=== PATIENT | male | born 1940 | race Caucasian/White ===

== ENCOUNTER 2016-08-25 06:00 | Inpatient (IN) | payer MEDICARE, OTHER ==
[~2016-08-25] VITALS: Ht 175.3 cm; Wt 100.3 kg
[2016-08-25] VITALS (19 sets, daily range): BP systolic 101–126; BP diastolic 66–89; PULSE 96–128; RESP 19–27; O2SAT 90–100
--- NOTE | 2016-08-25 06:14 | ED.REPORT ---
HPI-Dyspnea / Wheezing Date of Service Aug 25, 2016 ED Provider: Anthony Sainz MD 76 year old male with a remote history of smoking, and history of CAD, HTN, DM, and sleep apnea on BIPAP at night presents to the ER via EMS accompanied by his due to several weeks of shortness of breath and global weakness. For the past several weeks patient has been increasingly short of breath. In the early hours of the morning today symptoms awakened him from sleeping. He went downstairs to sleep in his recliner in an attempt to improve his breathing. When he got up to return to his bedroom upstairs he fell to his knees and had to crawl upstairs, which prompted the to call EMS. Associated symptoms include constipation secondary to narcotic use, and melena recently. denies fever, cough, chest pain, and history of asthma, and COPD. reports that the patient has was seen at [facility] 08/20/2016 for similar, at which time he had x-rays done. Patient denies any anticoagulant use, and home O2 use. Recent history of right total knee arthroscopy 07/29/2016. He takes 325mg ASA daily, but has not taken any today. Nursing Notes Stated Complaint: DIFFICULTY BREATHING Chief Complaint: Respiratory Distress Nursing Notes Reviewed: Yes (Helmedix not reconciled) Allergies: Coded Allergies: Sulfa (Sulfonamide Antibiotics) (Verified Allergy, Unknown, Rash, 08/25/16) atorvastatin (Verified Allergy, Unknown, 08/25/16) lactose (Verified Allergy, Unknown, Nasal congestion, 08/25/16) tramadol (Verified Adverse Reaction, Intermediate, "DINGY"., 08/25/16) General Time Seen by MD: 06:10 Chief Complaint Shortness of breath Hx Obtained From: Patient, Spouse Arrived By: Ambulance Sudden in Onset?: No Onset Occurred: More than a week ago... ("several weeks") Symptom Duration: Since onset Associated with: Denies: Cough, Fever Context Related History: Reports: Coronary artery disease, Denies: COPD Recent Healthcare: Recent doctor visit Similar Sx Previous: Yes Risk Factors CAD Risk Stratification Diabetes mellitus Hypertension Known CAD Risk factors reviewed Well's Criteria for PE Clin suspicion of DVT (3), HR > 100 (1.5), Immob/surg past 4wk (1.5) Well's PE Score: 3-6 pts (mod risk 20.5%) Past Medical History Past Medical History Notes: Medication list reviewed with family: Aspirin 81 mg daily Carvedilol 4.5 mg 2 times a day Vitamin D3 Colchicine when necessary Vitamin B12 Flexeril when necessary Iron 325 mg daily Prinivil 20 mg-discontinued this week secondary to low blood pressures Nitroglycerin when necessary Oxycodone Crestor 20 mg daily Colace Past Medical History Coronary disease Peripheral artery disease with carotid disease Diabetes Hyperlipidemia Hypertension History of OR History of diabetic neuropathy Obese History of obstructive sleep apnea on CPAP on history of osteoporosis Past Surgical History Right knee arthroplasty July 2016 Cervical spine surgery Carotid stent 3 History of carpal tunnel release History of coronary angioplasty-PCI FO MB CABG with a HUDSON to LAD P TURP for prostate surgery Smoking History Former Smoker Social History Alcohol Use: Denies alcohol use Drug Use: Denies drug use Review of Systems Constitutional: Reports: Weakness - generalized, Denies: Chills, Fever Respiratory: Reports: Shortness of breath, Denies: Non-productive cough Cardiovascular: Denies: Chest pain Complete sys rev & neg: except as marked. GI: Reports: Constipation, Melena Physical Exam Physical Exam Notes: Initial Vital Signs Vital Signs (First) Date Time Temp Pulse Resp B/P Pulse Ox O2 Delivery O2 Flow Rate FiO2 08/25/16 06:10 36.6 103 21 101/66 97 Room Air 08/25/16 08:01 6 Initial VS: Reviewed, Vital signs abnormal Head / Eyes: Atraumatic, Normocephalic Abdomen / GI: Soft, Non-tender, No guarding, No rebound, No distention Extremities: Vascular intact, Neuro intact, No swelling, No tenderness Neurologic: Alert, Oriented, Nonfocal General/Constitutional: Awake, Alert, Well developed Appearance / Presentation: Positive: Ill appearing/not toxic, Pale Weak appearing. Fatigued. Neck: Atraumatic, Supple, Full range of motion Respiratory / Chest: No rales, No rhonchi Moderately short of breath. Scattered wheezing in all macias Cardiovascular: Heart rate NL, Regular rhythm, Heart sounds NL, Peripheral circulation NL Hypertension resolved 1+ edema bilaterally. ENT: Airway patent Mouth: Positive: Mucous membranes dry Lower Extremity / Pelvis / MS: Full range of motion, No deformity, Neurologic intact, Vascular intact Right leg in compression stocking New incision to the Right knee, clean, dry, intact. No gross assymmetry of the lower extremities. Neurologic: Oriented X3, Speech NL, No sensory deficits Globally weak requiring assistance to sit up. Head / Eyes: Atraumatic, Normocephalic Conjunctival pallor. Interpretation & Diagnostics Lab Results Interpretation Result Diagram: 08/25/16 0745 08/25/16 0600 Test 08/25/16 06:00 08/25/16 06:17 08/25/16 07:45 White Blood Count 11.8th/mm3 (3.8-10.1) Red Blood Count 3.44mil/mm3 (4.40-5.80) Mean Corpuscular Volume 91.0fL (81-100) Mean Corpuscular Hemoglobin 29.1pg (27.0-35.0) Mean Corpuscular Hemoglobin Concent 31.9% (32.0-37.0) Red Cell Distribution Width 13.5% (12.3-15.4) Platelet Count 453bil/L (150-400) Neutrophils (%) (Auto) 74.1% (40-74) Lymphocytes (%) (Auto) 17.8% (14-46) Monocytes (%) (Auto) 7.1% (4-12) Eosinophils (%) (Auto) 0.3% (0-5) Basophils (%) (Auto) 0.3% (0-3) Prothrombin Time 13.9sec (8.1-12.5) Prothromb Time International Ratio 1.29ratio Sodium Level 128mEq/L (134-144) Potassium Level 6.1mEq/L (3.5-5.2) Chloride Level 91mEq/L (97-108) Carbon Dioxide Level 16mmol/L (18-29) Blood Urea Nitrogen 35mg/dL (8-27) Creatinine 1.62mg/dL (0.76-1.27) Estimat Glomerular Filtration Rate 44mL/min (>59) Glucose Level 256mg/dL (60-99) Calcium Level 9.4mg/dL (8.5-10.1) Magnesium Level 2.4mg/dL (1.6-2.6) Total Bilirubin 0.3mg/dL (0.0-1.2) Aspartate Amino Transf (AST/SGOT) 26U/L (0-50) Alanine Aminotransferase (ALT/SGPT) 20U/L (0-44) Alkaline Phosphatase 60U/L (25-160) Troponin T 0.925ug/L (0.0-0.011) Pro-B-Type Natriuretic Peptide 5206pg/mL (0-486) Total Protein 7.6g/dL (6.4-8.4) Albumin 3.5g/dL (3.4-5.0) Lactic Acid Level 2.7mmol/L (0.4-2.0) Hold Barnard Top Tube Received (Received) Hemoglobin 9.3g/dL (13.8-17.2) Hematocrit 28.9% (41.0-50.0) Activated Partial Thromboplast Time 27.1sec (22.8-33.0) Lab Results Interpretation: CBC mild leukocytosis, moderate anemia-but improved from her crit of 24 previously (07/29) in recent weeks CMP notable for slight hyperkalemia, moderate metabolic acidosis, renal insufficiency with a creatinine of 1.1 on July 29, mild hyperglycemia Lactic acid moderately elevated Troponin elevated ECG Interpretation ECG Interpretation: Sinus Tachycardia. New nonspecific IVCD. ST segment depression V1-V4. New T wave inversion laterally. Concerning for ischemia. Posterior STEMI. However, although ECG changes present, clinically concerning for pulmonary embolus. Time: 06:46 Interpreted by: ED physician ECG Interpretation: Repeat EKG unchanged Time: 06:05 Interpreted by: ED physician Repeat ECG: Repeat ECG unchanged ECG Interpretation: Repeat EKG with posterior leads V5 through 7 CT Chest Interpretation CONCLUSION: No evidence of pulmonary embolism. Bilateral pleural effusions and infiltrates are nonspecific, possible pneumonia and/or edema. Mild mediastinal adenopathy is nonspecific, neoplasm is not excluded. Electronically signed by Michelle Fallon MD 08/25/2016 at 08:12 PDT Study type: CT pulm angiogram Interpretation / Wet Read by: Interpret - Radiologist Re-Eval/Medical Decision Med Decision/Clinical Course This is a 76-year-old male who is status post a right knee replacement last month presents with increasing shortness of breath, weakness, and hypertension and hypoxia. The patient is weak and ill-to the initial history is obtained through the and EMS. reports the patient's been feeling worse over the past several weeks, some increasing shortness of breath and fatigue. Last night he was having short of breath, and discontinued his CPAP, and sat upright in a chair. He denies any chest pain, reports symptoms are different than previous coronary disease, but has had increasing dyspnea. This morning he barely tried to get up and took several steps either collapsed or had syncope. He was then too weak to get up and EMS was called. Medics found the patient hypoxic with room air sat of approximately 80%, and hypotensive with a systolic blood pressure of 80. With a gentle fluid bolus, and O2-the patient's blood pressure is now 105 systolic, and a sats 99% on oxygen therapy on arrival to the department. The patient appears quite pale, with a possible concern of anemia as a cause based on his conjunctival pallor in appearance-I reviewed denies any symptoms of bleeding, he does note he is on an iron supplement. A stat hematocrit was obtained but is about 30, and is improved compared to previous lab lab values ( records were obtained from [facility] [place], where the patient was seen last week). A chest x-ray suggest possible mild CHF, but does not explain the profound shortness of breath. The patient has had a recent knee arthroplasty, he now presents hypotensive, hypoxic-PE is high on the list potential diagnoses. The patient does have an EKG concerning for possible ischemia, but is also notable for QRS widening, ST depression anteriorly-and these are new findings compared to an old EKG from 2015-but the patient initially had a ruled out for anemia, metabolic disease, PE hold off on emergent anticoagulation until early sort out the anemia's status as discussed indicated above. Once it was determined the patient was not anemic, heparin drip at DVT PE doses were intiated. I also reviewed the patient's EKGs with the on-call audit manager. Posterior EKG with V4 5 and 6 replaced with V7, V8, and V9 was obtained for EKG #3 (note this does not reveal in the formal EKG labels. Labs then returned notable for potassium elevated at 6.1, dictating potential metabolic cause-with EKGs findings including QRS widening, and potential findings of hyperkalemia treatment was initiated: The patient received albuterol ('s was started initially as well, based on bronchospasm on initial exam), insulin, dextrose, bicarbonate, following initial administration of calcium. Patient's medications were reviewed. He also received aspirin to complete a full dose-he had taken 81 mg prior to coming in. This point the plan is admission to the hospital for continued management, treatment of hyperkalemia, close monitoring, and cardiology consultation likely be indicated. The first step will be addressing of the metabolic abnormalities , then reassessing the cardiac status. Source of Hx: Old records, EMS Re-Evaluation/Progress : Time of Eval: 07:42 Re-Evaluation/Progress Note: Patient is now accompanied by multiple family members who are at bedside. Discussed lab results and imaging wet reads and need for admission. Patient and family understand and agree to the plan. All other questions addressed. Consultation #1: Referral / Consult Name: Antoni Johnson MD Consulted With: Cardiology Call Returned at: 06:48 Consultation #2: Consulted With: Hospitalist Door Slinger: Agrees with eval, Agrees with plan, Accepts admit Counseled Regarding: Diagnosis, Lab results, Need for admission Discharge & Departure Impression: Primary Impression: Hyperkalemia Additional Impressions: Shortness of breath Acute renal insufficiency Metabolic acidosis Abnormal EKG Elevated troponin Congestive heart failure Congestive heart failure type: systolic Congestive heart failure chronicity: acute Qualified Code: I50.21 - Acute systolic (congestive) heart failure Disposition: ADMITTED TO HOSPITAL (ERASED) Discharge Condition All VS Reviewed: Yes Condition: Stable Referrals: OTHER,PHYSICIAN (PCP) Scribe Attestation Portions of this note were transcribed by Luis Enrique Milian. I, Dr. Sainz, personally performed the history, physical exam and medical decision-making; I reviewed and confirmed the accuracy of the information in the transcribed note. Signed by: Jack Devlin, 08/25/2016 and *time*. Anthony Sainz MD Aug 25, 2016 06:14 LUIS ENRIQUE MILIAN Aug 25, 2016 06:22 Cristi Ayala Aug 25, 2016 06:50
[2016-08-25 06:19] LABS: BASOPHILS % (AUTO) 0.3 % (0-3); EOSINOPHILS % (AUTO) 0.3 % (0-5); MONOCYTES % (AUTO) 7.1 % (4-12); Mean Corpuscular Hemoglobin 29.1 pg (27.0-35.0); NEUTROPHILS % (AUTO) 74.1 % (40-74); Platelet Count 453 bil/L (150-400)
[2016-08-25] MEDS ORDERED: Albuterol 2.5 mg/3 mL Inhalation Solution NEB ONE ×2 (06:21→06:25)
[2016-08-25] MEDS ORDERED: Ipratropium 0.02% 0.5 mg/2.5 mL Inhalation Solution NEB ONE (06:25)
[2016-08-25] MEDS ORDERED: Heparin 5,000 Unit/mL Inj IVPUSH ONE (06:50)
[2016-08-25] MEDS ORDERED: Heparin 25K Unit/500mL 0.45 NS 25,000 UNIT in IV Premix 1 EACH IV ONE ×2 (06:50→08:40)
[2016-08-25 06:54] LABS: INR 1.29 ratio
[2016-08-25 07:07] LABS: Magnesium 2.4 mg/dL (1.6-2.6)
[2016-08-25 07:15] LABS: TROPONIN T 0.925 ug/L (0.0-0.011)
[2016-08-25] MEDS ORDERED: Sodium Bicarb (50 mEq) 8.4% 1 mEq/mL 50 mL Syringe IVPUSH ONE (07:20)
[2016-08-25] MEDS ORDERED: Insulin Human REGular-Omnicell 100 Unit/mL IV ONE ×2 (07:20→20:25)
[2016-08-25] MEDS ORDERED: Albuterol 0.5% (5mg/mL) 20 mL Inhalation Solution NEB ONE (07:20)
[2016-08-25] MEDS: Calcium GLUCOnate 10% (Gm) 1 Gm/10 mL Inj IVPUSH PRN ×2 (07:40→08:55)
--- NOTE | 2016-08-25 08:14 | DRSVH ---
PROCEDURE: CT ANGIO CHEST PULMONARY EMBOLISM ([id number]) INDICATIONS: SOB, hypoxia TECHNIQUE: After the administration of intravenous contrast, 2 mm thick sections acquired from the pulmonary api krysta to the posterior costophrenic angles. 3-dimensional maximum intensity projection (MIP) coronal a nd sagittal reformats were then acquired through the thorax. For radiation dose reduction, the follo wing was used: automated exposure control, adjustment of mA and/or kV according to patient size. COMPARISON: Merged With [facility], CR, XR CHEST 1VW (PORTABLE), 08/25/2016, 6:01. FINDINGS: Image quality: Excellent. Pulmonary arteries: Pulmonary arteries are normal in size, and demonstrate no intraluminal filling d efects to suggest central pulmonary embolism. Lungs and pleura: No pneumothorax. Bilateral small pleural effusions, which appear to be partially lo culated. There is probable fluid seen within the left fissure, image 22 series 6 although rounded senait earance (i.e. pseudotumor). Scattered diffuse atelectasis and ill-defined groundglass opacities. Mediastinum: The heart is enlarged. No pericardial effusion identified. The aorta is grossly unremar kable. Mildly enlarged scattered mediastinal subcarinal and peritracheal lymph nodes. Esophagus is de compressed. No hiatal hernia. Bones and chest wall: No suspicious bony lesions. Ribs and thoracic spine appear intact throughout. Thyroid gland negative. No axillary or supraclavicular adenopathy. Abdomen: Visualized upper abdominal solid organs appear normal in the early arterial phase of enhanc ement. Of note, reflux of contrast is seen into the hepatic veins, and IVC IMPRESSION: No evidence of pulmonary embolism. Small bilateral pleural effusions with adjacent atelectasis. Rounded focus of low attenuation seen wi thin the left fissure likely loculated fluid (i.e. pseudotumor). Recommend continued followup with PA and lateral chest radiographs to document resolution after treatment. Scattered groundglass opacities and mild interlobular septal thickening suggesting pulmonary edema. P lease correlate clinically Cardiomegaly and reflux of contrast into the IVC and hepatic veins, which suggests decreased cardiac output. Dictated by: Darin Fonseca M.D. on 08/25/2016 at 8:06 Approved by: Darin Fonseca M.D. on 08/25/2016 at 8:13
[2016-08-25] MEDS ORDERED: 0.9% Sodium Chloride 500 ML IV ONE (08:35)
[2016-08-25] MEDS ORDERED: LISI-567 PO (08:53)
[2016-08-25] MEDS ORDERED: CARV12.52 PO (08:53)
[2016-08-25] MEDS ORDERED: DIAZ5TAB3 PO (08:53)
[2016-08-25] MEDS ORDERED: UBID1CAP58 PO (08:53)
[2016-08-25] MEDS ORDERED: ASPI-973 PO (08:53)
[2016-08-25] MEDS ORDERED: OXYC5CAP4 PO (08:53)
[2016-08-25] MEDS ORDERED: GARL1TAB PO (08:53)
[2016-08-25] MEDS ORDERED: COLC0.6C3 PO (08:53)
[2016-08-25] MEDS ORDERED: FERR324T2 PO (08:53)
[2016-08-25] MEDS ORDERED: MULT-1018 PO (08:53)
[2016-08-25] MEDS ORDERED: NITR4.1S2 TRANSLING (08:53)
[2016-08-25] MEDS ORDERED: CYAN-2 SL (08:53)
[2016-08-25] MEDS ORDERED: SENN-133 PO (08:53)
[2016-08-25] MEDS ORDERED: ROSU20TA27 PO (08:53)
[2016-08-25] MEDS ORDERED: TURM500C7 PO (08:56)
[2016-08-25] MEDS ORDERED: SITA100T12 PO (08:56)
[2016-08-25] MEDS ORDERED: CHOL100045 PO (08:56)
[2016-08-25] MEDS ORDERED: ACET-2766 PO (08:56)
--- NOTE | 2016-08-25 09:09 | DRSVH ---
PROCEDURE: X-RAY CHEST ONE VIEW, PORTABLE ([id number]) INDICATIONS: SOB TECHNIQUE: One view of the chest was acquired. COMPARISON: [facility], CT, CT ANGIO CHEST PE, 08/25/2016, 7:31. FINDINGS: Surgical changes and devices: Sternotomy wires. Lungs and pleura: No pneumothorax. Focal opacity projecting in the left midlung. There are bibasilar consolidative opacities. Small bilateral pleural effusions Mediastinum: Mediastinal contours appear normal. Heart size is normal. Bones and chest wall: No suspicious bony lesions. Overlying soft tissues appear unremarkable. IMPRESSION: Patchy bibasilar consolidation, and focal opacity in the left midlung. This is better christ racterized on comparison CTA chest dated same day. Please see report. Dictated by: Darin Fonseca M.D. on 08/25/2016 at 9:05 Approved by: Darin Fonseca M.D. on 08/25/2016 at 9:07
[2016-08-25] MEDS ORDERED: Ondansetron 2 mg/mL 2 mL Inj IVPUSH PRN ×2 (10:20→12:10)
[2016-08-25] MEDS ORDERED: Alum-Mag Hydrox-Simeth 30 mL Suspension PO PRN ×2 (10:20→12:10)
--- NOTE | 2016-08-25 10:30 | NUR ---
Admit Pt. brought to room 2002 PCC from the ED. Pt. upon arrival looks pale and on a cardiac protocol heparin drip running at 1000Units/hr. Pt. also on 7L oxymask and states SOB, Pt. is on bedrest and report given by ED nurse via telephone. VS are 36.6 degrees celsius, 123/81 BP, 24 RR, SpO2 96% on 7L oxymask, and pulse 109. Pt. is also ST with a 1st degree AV block per tele. Pt. is able to communicate but appears fatigued as well as stating that himself. Pt. denies CP or any other type of pain at this time.
[2016-08-25 10:47] LABS: TROPONIN T 1.16 ug/L (0.0-0.011)
[2016-08-25] MEDS ORDERED: Polyethylene Glycol (PEG) 17 Gm Powder PO PRN (12:10)
[2016-08-25] MEDS: Albuterol 1.25 mg/3 mL Inhalation Solution NEB PRN ×2 (13:26→19:20)
[2016-08-25] MEDS: Heparin 5,000 Unit/mL Inj IVPUSH PRN ×2 (13:32→18:56)
[2016-08-25] MEDS ORDERED: Furosemide 10 mg/mL 4 mL Inj IVPUSH ONE ×2 (14:10→19:35)
--- NOTE | 2016-08-25 14:15 | PCM.HPMED ---
Subjective Date of Service Aug 25, 2016 Primary Provider: Admitting Physician: Hector Sarkar MD Primary Care Physician: Sherley Tanner MD Attending Physician: Hector Sarkar MD Chief Complaint: Shortness of breath History of Present Illness: Patient is a 76-year-old male with hypertension, type 2 diabetes mellitus, ADELA, hyperlipidemia, and CAD s/p CABG and stent placement presenting with shortness of breath and generalized weakness. The patient is accompanied by his family at bedside. Patient reports undergoing right knee arthroplasty on 07/29/2016 with subsequent weakness about 1-2 weeks following the surgery. He also reports substernal chest pressure and shortness of breath that started about 2 weeks ago. He says the chest pressure and shortness of breath is only noticeable with the use of his CPAP. He reports associated diaphoresis but denies nausea or radiation with the chest pain. Patient reports sleeping in his recliner to help with his breathing. He reports worsening weakness yesterday with the inability to get out of the recliner. Due to his profound weakness the patient had to crawl out of the recliner and up the stair to notify his for assistance. EMS was then summoned. His reports that the patient has had decreased intake over the past three days. Patient reports taking his medications as prescribed. Patient denies fever, chills, cough, emesis, abdominal pain. In the ED, vitals: temp 36.6, HR 105, RR 19 satting 99% on 5L oxy mask, BP 105/ 78. Notable labs: WBC 11.8, Na 129, K 5.9, Cl 93, CO2 16, BUN 38, Creatinine 1.64, glucose 218. Troponin 0.925, 1.16. Pro-BNP 5206. Lactic acid 2.7. Chest x- ray reads patchy bibasilar consolidation and focal opacity in the left midlung. CT chest angio shows no evidence of pulmonary embolism; small bilateral pleural effusions; rounded focus of low attenuation seen within the left fissure likely loculated fluid; scattered groundglass opacities and mild interlobular septal thickening suggesting pulmonary edema; cardiomegaly and reflux of contrast into the IVC and hepatic veins, suggestive of decreased cardiac output. Review of Systems: A comprehensive review of systems was conducted with the patient and found to be negative except as above in the History of Present Illness. Allergies Coded Allergies: Sulfa (Sulfonamide Antibiotics) (Verified Allergy, Unknown, Rash, 08/25/16) atorvastatin (Verified Allergy, Unknown, 08/25/16) lactose (Verified Allergy, Unknown, Nasal congestion, 08/25/16) tramadol (Verified Adverse Reaction, Intermediate, "DINGY"., 08/25/16) Home Medications Acetaminophen 650mg PO ASA 81mg daily Carvedilol 12.5mg daily Colchicine 0.6mg daily Vitamin B12 1000mcg SL Diazepam 5mg TID Ferrous sulfate 324mg daily Garlic 1 tablet Lisinopril 20mg daily Multivitamin daily Nitroglycerin spray PRN Oxycodone 10mg Q4 PRN Rosuvastatin 20mg daily Sitagliptin 100mg daily CoQ10 daily Vitamin D 1000u daily PMH Type 2 diabetes mellitus with neuropathy Hypertension Dyslipidemia ADELA using CPAP Obesity PVD CAD s/p CABG and stent History of IN Surgical History Right knee arthroplasty July 2016 Cervical spine surgery Carotid stent 3 History of carpal tunnel release History of coronary angioplasty-PCI FO MB CABG with a HUDSON to LAD TURP Social History Hx Alcohol Use: Yes (Occassional) Hx Substance Use: No Smoking Status: Former Smoker Living Arrangement: with Family Exam Vital Signs Vital Sign - Last Date Time Temp Pulse Resp B/P Pulse Ox O2 Delivery O2 Flow Rate FiO2 08/25/16 13:55 109/71 08/25/16 13:50 103 96 OxyMask 7.00 08/25/16 13:30 20 08/25/16 10:35 36.6 08/25/16 08:48 96 Exam General: Ill-appearing, mild-distress, well-developed, well-nourished, appropriately interactive HEENT: Normocephalic, atraumatic. External ears without defect. Pupils equal, round, and reactive to light and accommodation. Anicteric sclerae, moist conjunctivae, and no lid lag. Oropharynx free of erythema and cobble stoning with moist mucosa. Oxymask in place. Neck: Supple. Cardiovascular: Regular rate and rhythm with no murmurs, rubs, or gallops appreciated Pulmonary: Coarse sounds on left. Normal respiratory effort with no use of accessory muscles. Abdomen: Bowel tones present. Soft, nontender, nondistended. Extremities: No clubbing, cyanosis, edema, or lymphadenopathy appreciated. Skin: Normal temperature, turgor, and texture; no rash, ulcers, or subcutaneous nodules appreciated. Neurological: Cranial nerves grossly intact. Psychiatric: Normal mood and affect. Alert and oriented to person, place, and time. Lab and Diagnostics Result Diagram: 08/25/16 1240 08/25/16 0952 X-Rays, CTs and MRIs CT ANGIO CHEST PULMONARY EMBOLISM IMPRESSION: No evidence of pulmonary embolism. Small bilateral pleural effusions with adjacent atelectasis. Rounded focus of low attenuation seen within the left fissure likely loculated fluid (i.e. pseudotumor). Recommend continued followup with PA and lateral chest radiographs to document resolution after treatment. Scattered groundglass opacities and mild interlobular septal thickening suggesting pulmonary edema. Please correlate clinically. Cardiomegaly and reflux of contrast into the IVC and hepatic veins, which suggests decreased cardiac output. Dictated and approved by: Darin Fonseca M.D. on 08/25/2016 at 8:06 X-RAY CHEST ONE VIEW, PORTABLE IMPRESSION: Patchy bibasilar consolidation, and focal opacity in the left midlung. This is better characterized on comparison CTA chest dated same day. Please see report. Dictated and approved by: Darin Fonseca M.D. on 08/25/2016 at 9:05 . Assessment & Plan Patient is a 76-year-old male with hypertension, type 2 diabetes mellitus, ADELA, hyperlipidemia, and CAD s/p CABG and stent placement presenting with shortness of breath and generalized weakness. Hospital day #1. 1. Suspected congestive heart failure. Present on admission. Active -Elevated Pro-BNP 5206. 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 Barry of [place] -Echocardiogram pending -Lasix 40mg IV. Will reassess fluid status -Cardiology consult. Recommendations per cardiology appreciated 2. NSTEMI, acute. Present on admission. Active -EKG with ST-depressions of anteroseptal leads -Heparin drip cardiac protocol -Telemetry -Morphine and SL nitroglycerin PRN -Cardiology consult. Recommendations per cardiology appreciated 3. Acute hypoxemic respiratory failure. Present on admission. Active -Suspect secondary to above -Continue supplemental oxygen 4. Dyspnea, acute. Present on admission. Improving -Suspect secondary to above. Chest CT angio without evidence of PE -Infectious etiology seems less likely, procalcitonin negative and clinically without fever, chills, cough -Continue with supplemental oxygen 5. Lactic acidosis, acute. Present on admission. Active -Likely secondary to hypoxemia and heart failure -Trend lactate 6. Acute kidney injury. Present on admission. Active -Elevated creatinine with no indications of CKD -Suspect secondary to decreased oral intake and possibly CHF -Monitor with CMP 7. Hyponatremia, acute. Present on admission. Active -Likely secondary to CHF -Treatment per above 8. Hyperkalemia, acute. Present on admission. Active -Likely secondary to SUBHA -Albuterol, Kayexalate -Repeat potassium level 9. Coronary artery disease s/p CABG and stent, chronic. Present on admission -Continue home dose rosuvastatin 20mg daily -Continue ASA 81mg daily 10. Type 2 diabetes mellitus, chronic. Present on admission. Stable -Hold home Januvia -Bedside blood glucose checks -Low dose Lispro correction 11. Hypertension, chronic. Present on admission -Hold lisinopril secondary to SUBHA and hyperkalemia 12. Dyslipidemia, chronic. Present on admission -Continue home dose rosuvastatin 20mg daily 13. ADELA, chronic. Present on admission -Uses CPAP at home 14. Obesity, chronic. BMI 30 Patient Status: Patient is admitted under inpatient status with expected length of stay greater than 2 midnights due to severity of presenting symptoms, risk of adverse event, and complexity of treatment plan. Pain Evaluation: Adequate Pain Control VTE Prophylaxis: Other (heparin gtt) Resuscitation Status: CPR: Attempt Resuscitation Attending Statement The patient was seen and examined together with Dr. Medley on 08/25/2016 and I agree with the history, exam and plan as outlined in the note above. . Duncan Medley DO Aug 25, 2016 14:15 Hector Sarkar MD Aug 25, 2016 16:31
--- NOTE | 2016-08-25 15:59 | PCM.CHPCAR ---
Consult Subjective Date of service Aug 25, 2016 Date of admit Aug 25, 2016 at 09:52 Provider Requesting Consult Requesting Provider: Hector Sarkar MD Primary Care Physician Primary Care Physician: Sherley Tanner MD Chief Complaint dyspnea, fatigue History of Present Illness 76 yo M followed by Dr. Friend h/o CAD s/p CABG and stents placement, DM, ADELA admitted with dyspnea and weakness. Patient had right knee arthoplasty on 2016 and developed dyspnea and weakness about 2 weeks after surgery. Patient is here with his and extended family. Patient and family state that he has been declining gradually over the past couple years and he is less active. Most of his limitation prior to a month ago was related to his right knee pain, for which she underwent arthroplasty about 4 weeks ago. He felt fine after surgery but started having significant shortness of breath and weakness about 2 weeks after surgery. He also reports having back and neck pain after surgery but no chest pain. His symptoms of dyspnea and fatigue have gotten worse over the past few days to the point that he was uncomfortable even at rest. He also had diaphoresis today. On arrival to [facility] emergency room, patient was initially thought to have a pulmonary embolism but a CT study was negative. The CT scan does show small bilateral pleural effusions suggestive of heart failure. Patient feels a bit better now. He did have chest pain while in the hospital that did not improve much with nitroglycerin but improved with IV morphine. Patient denies fevers, chills, nausea, or vomiting. Patient denies history of heart failure and was not on diuretics prior to his knee surgery. PROBLEM LIST: # HFrEF: EF 20-25% on Echo 08/25/2016 # CAD s/p CABG 1992 and stents (?OM, ? LAD) stents # HTN # HLD # Diabetes Review of Systems Review of Systems Per history of present illness and otherwise unremarkable PMH Past Medical History # HFrEF: EF 20-25% on Echo 08/25/2016 # CAD s/p CABG 1992 and stents (?OM, ? LAD) stents # HTN # HLD # Diabetes Bedside Blood Glucose: 159 Scheduled Aspirin (Aspirin) 81 Mg Tablet 81 MG PO BID (Reported) Carvedilol (Carvedilol) 12.5 Mg Tablet 12.5 MG PO BID (Reported) Cholecalciferol (Vitamin D3) (Vitamin D) 1,000 Unit Capsule 1,000 UNIT PO DAILY (Reported) Ferrous Sulfate (Ferrous Sulfate) 324 Mg Tablet.dr 324 MG PO DAILY (Reported) Lisinopril (Lisinopril) 20 Mg Tablet 20 MG PO DAILY (Reported) Multivitamin (Multi Vitamin Daily) 1 Each Tablet 1 EACH PO DAILY (Reported) Sitagliptin Phos (Januvia) 100 Mg Tablet 100 MG PO DAILY (Reported) Scheduled PRN Diazepam (Diazepam) 5 Mg Tablet 5 MG PO TID PRN PRN For Anxiety (Reported) Sennosides (Senna) 8.6 Mg Tablet 8.6 MG PO BID PRN PRN BID (Reported) oxyCODONE (oxyCODONE) 5 Mg Capsule 10 MG PO Q4H PRN PRN For Pain (Reported) Miscellaneous Medications Acetaminophen (Tylenol Arthritis) 650 Mg Tablet.er 650 MG PO (Reported) Colchicine (Colchicine) 0.6 Mg Capsule 0.6 MG PO (Reported) Cyanocobalamin (Vitamin B-12) (B-12) 1,000 Mcg/Ml Drops 1,000 MCG SL (Reported) Garlic (Garlic) 1 Each Tablet 1 EACH PO (Reported) Nitroglycerin Clifton (Nitroglycerin Clifton) 4.1 Gm Clifton 4.1 GM TRANSLING ( Reported) Rosuvastatin Calcium (Rosuvastatin Calcium) 20 Mg Tablet 20 MG PO (Reported) Turmeric Root Extract (Turmeric) 500 Mg Capsule 500 MG PO (Reported) Ubidecarenone/Vitamin E Mixed (Eck05-Akc E 100 mg-10 Unit Sfg) 100 Mg-10 Unit Capsule 1 EACH PO (Reported) Current Inpatient Medications Current Medications Calcium Gluconate 1 gm Q5MIN PRN IVPUSH Last administered on 08/25/16t 08:55; Admin Dose 2 GM; Start 08/25/16 at 07:20; Stop 08/25/16 at 08:55; Status DC Al Hydrox/Mg Hydrox/Simethicone 30 ml Q6 PRN PO; Start 08/25/16 at 10:20 Ondansetron HCl Dose range: 4 mg to 8 mg Q4H PRN IVPUSH; Start 08/25/16 at 10:20 Acetaminophen 975 mg Q6H PRN PO; Start 08/25/16 at 10:20 Heparin Sodium (Porcine) 5,000 unit Q8 SUBQ; Start 08/25/16 at 16:30; Stop at 16:30; Status DC Al Hydrox/Mg Hydrox/Simethicone 30 ml Q6H PRN PO; Start 08/25/16 at 12:10 Ondansetron HCl 4 to 8 mg Q4H PRN IVPUSH; Start 08/25/16 at 12:10 Senna 17.2 mg BID PRN PO; Start 08/25/16 at 12:10 Polyethylene Glycol 17 gm DAILY PRN PO; Start 08/25/16 at 12:10 Acetaminophen 650 mg Q4H PRN PO; Start 08/25/16 at 12:10 Heparin Sodium (Porcine) Per Protocol for a... PRN PRN IVPUSH Last administered on 08/25/16 13:32; Admin Dose 1,000 UNIT; Start 08/25/16 at 12:25 Albuterol 1.25 mg Q2H PRN NEB Last administered on 08/25/16 13:26; Admin Dose 1.25 MG; Start 08/25/16 at 12:30 Nitroglycerin 0.4 mg Q5MIN PRN SL Last administered on 08/25/16 13:55; Admin Dose 0.4 MG; Start 08/25/16 at 13:45 Morphine Sulfate 1-5 mg Q5MIN PRN IVPUSH Last administered on 08/25/16 15:01; Admin Dose 2 MG; Start 08/25/16 at 13:45 Allergies: Coded Allergies: Sulfa (Sulfonamide Antibiotics) (Verified Allergy, Unknown, Rash, 08/25/16) atorvastatin (Verified Allergy, Unknown, 08/25/16) lactose (Verified Allergy, Unknown, Nasal congestion, 08/25/16) tramadol (Verified Adverse Reaction, Intermediate, "DINGY"., 08/25/16) Family History Family History Kids are healthy Social History Hx Alcohol Use: Yes (Occassional)Hx Substance Use: No Smoking Status: Former Smoker Exam Vital Signs Vital Sign - Last Date Time Temp Pulse Resp B/P Pulse Ox O2 Delivery O2 Flow Rate FiO2 08/25/16 13:55 109/71 08/25/16 13:50 103 96 OxyMask 7.00 08/25/16 13:30 20 08/25/16 10:35 36.6 08/25/16 08:48 96 General appearance: No apparent distress but speaks softly, elderly, pleasant, cooperative HEET: Normocephalic atraumatic, no scleral icterus, tongue midline, mucous membranes moist Neck: supple Cardiovascular: RRR, normal S1 and normal S2, no murmurs/ rubs/gallops, JVP 12 cm H20, 1+ peripheral edema Respiratory: Fair aeration, coarse b/l with crackles at the bases b/l Abdomen: Soft, nontender, nondistended, + bowel sounds Neuro: Alert, no facial droop, tongue midline, no gross motor deficits Psych: appropriate affect Skin: no rashes on face, neck, and lower extremities Lab and Diagnostics Labs Troponin T 1.16, proBNP 5206 Result Diagram: 08/25/16 1240 08/25/16 0952 X-Rays, CTs and MRIs Echo today: 1) Mild concentric left ventricular hypertophy with mild dilatation and severely reduced systolic function (EF 20-25%). 2) Mildly dilated right ventricle with moderately reduced function. 3) Anterolateral wall is severely hypokinetic and the entire apex is akinetic. Rest of the umanzor are mildly hypokinetic. 4) Age related calcification of the aortic and mitral valves present but no significant stenosis or regurgitation present. 5) Pulmonary hypertension present, estimated systolic pulmonary pressure of 62mmHg 6) Compared to the Echo done 08/06/2012, LV function has decreased significantly from 55-60% to 20-25% on today's study. Findings consistent with ischemic cardiomyopathy. 12-lead ECG ECG on arrival to the floor shows sinus rhythm with anterior, anterolateral, and lateral ST depressions Assessment & Plan Assessment 76 yo M followed by Dr. Friend from [facility], h/o CAD s/p CABG and stents placement, DM, ADELA admitted with newly diagnosed systolic heart failure exacerbation and NSTEMI. # HFrEF (systolic heart failure, newly diagnosed): Recent diagnosis with systolic heart failure on echo today. Patient has symptoms and signs of heart failure exacerbation. Etiology of HF is suspected to be ischemic cardiomyopathy and ongoing ischemia is likely causing the exacerbation. He is NYHA class IV and his hypervolemic on exam. I spent significant time educating the patient and his family about heart failure. Recommendations as below: - Start furosemide 40mg IV and redose to achieve goal negative 1.5L in 24 hours - Hold off beta-blockers for now due to decompensated heart failure - Hold off LEONARDO-I for now due to SUBHA # NSTEMI: Patient has known history of CAD s/p CABG 1991 and stents. Patient's ECG does have ischemic changes and his troponin is elevated, both suggestive of acute coronary syndrome. Patient doesn't meet STEMI criteria on ECG and positive troponins are consistent with NSTEMI. I spent significant time educating the patient and his family about his condition. Recommendations as below: - Continue aspirin 81mg daily - Continue heparin gtt - Start rosuvastatin 10mg qhs. Patient intolerant of atorvastatin. Fasting lipids added to labs done today morning - Primary team to obtain records from [facility] for our review - Cardiac cath with possible PCI once patient able to lay flat and when renal function is baseline # SUBHA: Payne having mild hyperkalemia and SUBHA. Etiology is unclear but it could be congestion. Patient did receive contrast as part of the CTA scan done today morning. We will diurese gently over the next 24 hours and reassess tomorrow. # HTN: BP well controlled. Continue to monitor. # HLD: statin as above. # Diabetes: blood sugars elevated. Will defer to primary team for further management. VTE Mechanical Devices: Intermittant Pneumatic CD Antoni Johnson MD Aug 25, 2016 15:59
[2016-08-25] MEDS ORDERED: Glucose 40% Oral Gel 15 Gm Tube PO PRN (16:30)
[2016-08-25] MEDS ORDERED: Heparin 5,000 Unit/mL Inj SUBQ SCH (16:30)
[2016-08-25] MEDS: Insulin LISPRO 300 Unit/3 mL Inj SUBQ SCH ×2 (17:30→21:54)
--- NOTE | 2016-08-25 18:39 | NUR ---
Respiratory/Voiding/BM/Potassium Pt. is on 7L oxygen on oxymask and sating at low 90s and states feeling SOB. Pt. does not tolerate having his head down and needs the HOB at about 30 degrees or more. Pt. has also brought his own CPAP machine from home and RT has assembled CPAP in Pts. room. Pt. has not been able to void since 2200 yesterday and states he does not feel the urge to urinate like he usually does. Bladder scanned Pt. and 463mL was recorded on scanner machine. made aware and TORB to place a beckett. Beckett was placed with no complication and 450mL drained into beckett bag immediately, did feel slight resistance when putting beckett in. Size of the beckett is 16 turkmen. Pt. has also had no BM and was given kayexalate once this afternoon. Potassium level at this time is 5.9 and is aware.
[2016-08-25 19:15] LABS: TROPONIN T 2.1 ug/L (0.0-0.011)
--- NOTE | 2016-08-25 20:10 | ABG ---
DateTimeAnalyzed 20:07:00 -_ pH ____7.395 - 7.350 7.450 pCO2 ___29.8__ -mmHg 35.0 45.0 pO2 ___72.7__ -mmHg 69.0 116 HCO3- ___17.9__ -mmol/L 22.0 26.0 ABE ___-5.7__ -mmol/L -2.0 2.0 tHb ___10.0__ -g/dL O2Hb ___92.3__ -% COHb ____1.2__ -% MetHb ____1.1__ -% sO2 ___94.5__ -% 25.0 FIO2 __100.0__ -% Drawn By AF - Date/Time Notified____ 20:10:00 -_ Oxygen Device 1 NON RE-SAMIR - Notified By AF - Notified Whom ___Dr. Sullenberger -____ B 755 -mmHg tO2 ___13.0__ -Vol% Janes test _Positive -
[2016-08-25] MEDS ORDERED: Eptifibatide 20,000 mCg/10 mL Inj IVPUSH ONE (20:15)
[2016-08-25] MEDS ORDERED: Furosemide 10 mg/mL 10 mL Inj IVPUSH ONE ×2 (20:20→20:25)
[2016-08-25] MEDS: Eptifibatide IV Infusion 75,000 MCG in IV Premix 1 EACH IV SCH (21:27)
[2016-08-26] VITALS (14 sets, daily range): BP systolic 105–132; BP diastolic 68–82; PULSE 103–115; RESP 20–28; O2SAT 93–98
[2016-08-26] MEDS: Heparin 5,000 Unit/mL Inj IVPUSH PRN ×2 (01:33→09:39)
[2016-08-26] MEDS: Albuterol 1.25 mg/3 mL Inhalation Solution NEB PRN (02:35)
[2016-08-26 02:43] LABS: BASOPHILS % (AUTO) 0.2 % (0-3); EOSINOPHILS % (AUTO) 0 % (0-5); MONOCYTES % (AUTO) 13.3 % (4-12); Mean Corpuscular Hemoglobin 29.1 pg (27.0-35.0); Mean Corpuscular Volume 89.5 fL (81-100); NEUTROPHILS % (AUTO) 72.9 % (40-74); Platelet Count 483 bil/L (150-400)
--- NOTE | 2016-08-26 04:30 | ABG ---
DateTimeAnalyzed 04:27:00 -_ pH ____7.439 - 7.350 7.450 pCO2 ___31.2__ -mmHg 35.0 45.0 pO2 ___86.4__ -mmHg 69.0 116 HCO3- ___20.8__ -mmol/L 22.0 26.0 ABE ___-2.3__ -mmol/L -2.0 2.0 tHb ____9.9__ -g/dL O2Hb ___94.5__ -% COHb ____1.5__ -% MetHb ____1.1__ -% sO2 ___97.0__ -% 25.0 FIO2 ___60.0__ -% CPAP ___14.0__ -cmH2O PEEP ____6.0__ -cmH2O Drawn By AF - Date/Time Notified____ 04:30:00 -_ Spontaneous_RR ___22.0__ -b/min Oxygen Device 1 ____BIPAP - Notified By AF - B 756 -mmHg tO2 ___13.2__ -Vol% Janes test _Positive -
--- NOTE | 2016-08-26 05:18 | NUR ---
Transfer / Resp / Cardiac / Labs Patient transferred to room 2009 with shortness of breath and chest discomfort. EKG shown to MD. Bipap therapy initiated after ABGs. Chest pain resolves with bipap therapy and no medications or given for it. MD aware pt received no Morphine and is not on Nitro. Integrilin added to medications. Kayexelate administered, Dextrose and insulin administered 80mg Lasix administered. UO 900 for shift. Pt has not had a BM. MD updated on patient condition. No further orders.
--- NOTE | 2016-08-26 05:59 | DRSVH ---
[facility] [address] [place] [place] [address] Echocardiogram Report Name: NISHI BOSWELL Date : 08/25/2016 Height: 69 in Hospital Exam Location: [facility] Weight: 208 lb Gender: Male BSA: 2.1 m2 : 1940 Age: 76 yrs BP: 105/ 78 mmHg Reason For Study: SOB, CHEST PAIN History: CABG Ordering Physician: HOSPITALIST [facility] Performed By: Angela Slater Referring Physician: Analy VALENTIN Interpretation Summary 1) Mild concentric left ventricular hypertophy with mild dilatation and severely reduced systolic function (EF 20-25%). 2) Mildly dilated right ventricle with moderately reduced function. 3) Anterolateral wall is severely hypokinetic and the entire apex is akinetic. Rest of the umanzor are mildly hypokinetic. 4) Age related calcification of the aortic and mitral valves present but no significant stenosis or regurgitation present. 5) Pulmonary hypertension present, estimated systolic pulmonary pressure of 62mmHg. 6) Compared to the Echo done 08/06/2012, LV function has decreased significantly from 55-60% to 2025% on today's study. Findings consistent with ischemic cardiomyopathy. Procedure: A two-dimensional transthoracic echocardiogram with color flow and Doppler was performed. The study quality was technically adequate. A contrast injection of Definity was performed to improve assessment of LV function. Comparison is made with the echocardiogram of 08/06/2012. The patient was in atrial fibrillation with heart rates between 93-105 bpm during the exam. Left Ventricle: The left ventricle is mildly dilated. Left ventricular wall thickness is mildly increased. Proximal septal thickening is noted. There is no thrombus. The ejection fraction is estimated to be 20-25%. Left ventricular systolic function is severely reduced. Anterolateral wall is severely hypokinetic and the entire apex is akinetic. Rest of the umanzor are mildly hypokinetic. Diastolic function could not be accurately assessed due to atrial fibrillation. Right Ventricle: The right ventricle is not well visualized. The right ventricle is mildly dilated. Right ventricular systolic function is moderately reduced. Atria: The left atrium is moderately dilated. Right atrial size is normal. There is no Doppler evidence for an interatrial shunt. Mitral Valve: The mitral valve leaflets appear mildly thickened, but open well. The mitral valve leaflets are mildly calcified. There is mild mitral regurgitation. Aortic Valve: The aortic valve is trileaflet. There is discrete nodular thickening of the non- coronary cusp. There is no aortic valve stenosis. No aortic regurgitation is present. Tricuspid Valve: The tricuspid valve leaflets are thin and pliable. There is mild tricuspid regurgitation. The right ventricular systolic pressure is estimated at 62 mmHg assuming a right atrial pressure of 15 mm Hg. Pulmonic Valve: The pulmonic valve is not well visualized. There is mild pulmonic regurgitation. Great Vessels: The aortic root is normal size. The ascending aorta is normal in size. The IVC is dilated (diameter is greater than 2.1 cm) and it collapses less than 50% with a sniff. This suggests a high right atrial pressure of 15 mm Hg. Pericardium/ Pleura There is no pericardial effusion. MMode/2D Measurements & Calculations LVIDd: 6.0 cm RA long axis: 5.7 cm LVOT diam LVIDs: 5.3 cm LA A2 area: 22.1 cm FS: 11.6 % LA A4 area: 24.2 cm RA area: 19.7 cm AoV Opening EPSS: 0.96 cm LA length (vol): 6.2 cm RA vol: 57.9 ml IVSd: 1.2 cm LA vol: 73.0 ml RA : 27.6 ml/m2 Ao root diam LVPWd: 1.2 cm LA vol index Aortic Jxn IVC diam: 2.7 cm asc Aorta Diam: 3.1 cm EDV(MOD-sp2) LV solis. diameter/BSA LV sys. diameter/BSA RVD1 (basal) : 172.6 ml (cm/m^2): 2.9 (cm/m^2): 2.5 Doppler Measurements & Calculations Ao V2 max: 96.9 cm/secMV E max emanuel Med Peak E' Emanuel TR max emanuel Ao max P.8 mmHg : 100.6 cm/sec : 342.6 cm/sec Ao mean P.8 mmHg E/E' med: 17.1 TR max PG LVOT Max Emanuel : 47.0 mmHg : 54.2 cm/sec PA V2 max : 54.3 cm/sec ABEL(I,D): 2.5 cm PA mean PG sev ratio: 0.61 : 0.61 mmHg PA Accel Time : 0.06 sec MV dec time: 0.17 sec Ao V2 mean LV V1 max PG PA V2 mean : 63.6 cm/sec : 36.9 cm/sec Ao V2 VTI: 13.1 cm LV V1 VTI: 7.9 cm ABEL(V,D): 2.3 cm2 ABEL indexed to BSA (cm^2/m^2): 1.2 Reading Physician:03:03 PM
[2016-08-26 06:06] LABS: APPEARANCE,URINE HAZY (CLEAR,HAZY); COLOR,URINE DARK YELLOW (YELLOW)
[2016-08-26 06:07] LABS: OCCULT BLOOD,URINE LARGE (NEGATIVE); UROBILINOGEN,URINE NORMAL (NORMAL)
[2016-08-26] MEDS: Heparin 25K Unit/500mL 0.45 NS 25,000 UNIT in IV Premix 1 EACH IV SCH (06:31)
[2016-08-26] MEDS: Insulin LISPRO 300 Unit/3 mL Inj SUBQ SCH ×4 (07:43→22:00)
[2016-08-26] MEDS: Eptifibatide IV Infusion 75,000 MCG in IV Premix 1 EACH IV SCH (09:13)
[2016-08-26] MEDS ORDERED: Furosemide 10 mg/mL 4 mL Inj IVPUSH SCH (10:00)
[2016-08-26] MEDS ORDERED: MeTOProlol 1 mg/mL 5 mL Inj IVPUSH ONE (10:00)
--- NOTE | 2016-08-26 10:33 | PROG NOTE ---
[address] [address] PROGRESS NOTE PATIENT: NISHI BOSWELL : 1940 MR#: [id number] ADMIT: 08/25/2016 JOB ID: [id number] DATE: SUBJECTIVE: I have had a chance to review the patient's records as well as his chest CT scan and echocardiogram. By my review of his echocardiogram, I think that his predominant regional wall motion abnormality is the posterior and lateral wall extending out to the apex. His LAD territory is mildly hypokinetic, but I think that this gentleman's problem is related to possible occlusion of the left circumflex coronary artery. We are still waiting on records from [facility], but the patient states that he had a single-vessel bypass to his LAD, and it appears that his stent was to his left circumflex artery in 2010. My review of the chest CT scan indicates that the internal mammary artery to the LAD is patent. This would correlate with his echocardiogram. His stent is visualized in the proximal to mid circumflex, and I suspect it may be occluded distal to the stent. The patient remains tachycardic on BiPAP therapy. He denies any symptoms of anginal chest discomfort in the past couple of weeks as he became more and more dyspneic. Prior to his stenting procedure, he did have anginal symptoms. PHYSICAL EXAM: On exam today, he is moderately pale. His heart rate is in the 110-120 range, and his blood pressure is 120 systolic. Blood gases show adequate oxygenation with mild respiratory alkalosis. Jugular venous pressure is difficult to ascertain. His heart rate is regular, with a soft apical gallop and a soft apical systolic murmur. Distal extremities otherwise are warm and well perfused. LABORATORY DATA: Notable for moderate anemia with a hemoglobin at 10. His white count was increased today at 18,000. He has got moderate thrombocytosis with a platelet count of 483. Chemistries continue to show moderate hyponatremia and hyperkalemia. He also has a fairly consistent reduction in his carbon dioxide. His creatinine peaked to 2.04, and is slightly improved today at 1.92 from a baseline of 1.62. His serum troponin levels peaked as well at 2.15, and are slightly declined this morning. His BNP is markedly elevated at 5200. IMPRESSION: I suspect the patient had posterolateral myocardial infarction, possibly related to occlusion of his circumflex artery. His ventricular dysfunction is likely ischemic and not well served by his persistent sinus tachycardia. He has an adequate blood pressure and I would suggest initiation of the beta maxwell therapy. I will ask the nurse to give him 5 mg of intravenous metoprolol. If he tolerates that well, then I would change him over to metoprolol succinate, perhaps 25 mg q.8. h., to make sure that he tolerates it, and then titrating as tolerated and as needed. I would not hesitate to continue to be aggressive with his diuresis. I would suggest at least 80 mg b.i.d., and maybe even q.8. h., depending upon his response. Oral fluids and intravenous water should be reduced given his hyponatremia, and I suspect that his hyperkalemia will improve with more aggressive diuresis. Once he is stable hemodynamically and his renal function is stable, then repeat coronary angiography will be performed. This might be within the next couple of days hopefully. In the interim, I would like to make sure that we get copies of his records from [facility] including his angioplasty and stenting in 2010. These recommendations were reviewed with the hospitalist staff.
[2016-08-26] MEDS: cefTRIAXone Inj 1,000 MG in Dextrose 5% Minibag Plus 50 ML IV SCH (12:19)
[2016-08-26] MEDS: MeTOProlol XL 25 mg ER24 Tablet PO SCH ×2 (13:25→20:13)
--- NOTE | 2016-08-26 13:33 | PCM.PNMED ---
Subjective Date of Service Aug 26, 2016 Subjective Overnight: Patient decompensated and his O2 saturation levels dropped and he developed chest pain. The symptoms resolved with application of BiPAP with increased FiO2. 4 catheter was placed. The milligrams Lasix given. Urine output approximately 300 mL. Today: Patient awake and alert with BiPAP mask in place, able to answer questions appropriately. Patient's family in the room very concerned about patient's health and care plan. He endorses shortness of breath, and right knee pain. Denies any current cardiac related chest pain, abdominal pain headache fever or chills. Exam Vital Signs Vital Sign - Last Date Time Temp Pulse Resp B/P Pulse Ox O2 Delivery O2 Flow Rate FiO2 08/26/16 12:30 Supplement Oxygen 08/26/16 12:30 37.2 103 23 105/68 94 60 08/26/16 11:19 45 Intake and Output 08/25/16 08/25/16 08/26/16 Cumulative From/Thru 15:00 23:00 07:00 08/25/16 06:10 - 08/26/16 06:32 Intake Total 651 ml 651 ml Output Total 950 ml 950 ml Balance -299 ml -299 ml Intake Oral 200 ml 200 ml IV Total 451 ml 451 ml Output Urine Total 950 ml 950 ml Exam General: Mild/moderate respiratory distress, well-developed, well-nourished appropriately interactive. HEENT: Normocephalic, atraumatic. External ears without defect. Pupils equal, round, and reactive to light and accommodation. Anicteric sclerae, moist conjunctivae, and no lid lag. BiPAP in place Neck: Supple. No jugular venous distension. Cardiovascular: Tachycardic rate with a regular rhythm. Soft systolic murmur. Pulmonary: Difficult to ascertain secondary to BiPAP, possible crackles left upper anterior lobes. No use of accessory muscles, no increased respiratory effort Abdomen: Soft, nontender, nondistended. Extremities: No clubbing, cyanosis, or edema appreciated. Skin: Normal temperature, turgor, and texture Neurological: Cranial nerves grossly intact. Psychiatric: Normal mood and affect. Alert and oriented to person, place, and time. IVs and Medications Medications Reviewed: Medications were reviewed in detail Lab and Diagnostics Result Diagram: 08/26/1621408/26/16214 X-Rays, CTs and MRIs CT ANGIO CHEST PULMONARY EMBOLISM IMPRESSION: No evidence of pulmonary embolism. Small bilateral pleural effusions with adjacent atelectasis. Rounded focus of low attenuation seen within the left fissure likely loculated fluid (i.e. pseudotumor). Recommend continued followup with PA and lateral chest radiographs to document resolution after treatment. Scattered groundglass opacities and mild interlobular septal thickening suggesting pulmonary edema. Please correlate clinically. Cardiomegaly and reflux of contrast into the IVC and hepatic veins, which suggests decreased cardiac output. Dictated and approved by: Darin Fonseca M.D. on 08/25/2016 at 8:06 X-RAY CHEST ONE VIEW, PORTABLE IMPRESSION: Patchy bibasilar consolidation, and focal opacity in the left midlung. This is better characterized on comparison CTA chest dated same day. Please see report. Dictated and approved by: Darin Fonseca M.D. on 08/25/2016 at 9:05 . Cardiac Echo Impressions . Echocardiogram Report Interpretation Summary: 1) Mild concentric left ventricular hypertophy with mild dilatation and severely reduced systolic function (EF 20-25%). 2) Mildly dilated right ventricle with moderately reduced function. 3) Anterolateral wall is severely hypokinetic and the entire apex is akinetic. Rest of the umanzor are mildly hypokinetic. 4) Age related calcification of the aortic and mitral valves present but no significant stenosis or regurgitation present. 5) Pulmonary hypertension present, estimated systolic pulmonary pressure of 62mmHg. 6) Compared to the Echo done 08/06/2012, LV function has decreased significantly from 55-60% to 2025% on today's study. Findings consistent with ischemic cardiomyopathy. Assessment & Plan Patient is a 76-year-old male with hypertension, type 2 diabetes mellitus, ADELA, hyperlipidemia, and CAD s/p CABG and stent placement presenting with shortness of breath and generalized weakness. Hospital day #2. 1. Suspected congestive heart failure. Present on admission. Active -Elevated Pro-BNP 5206. Imaging with evidence of pulmonary edema and cardiomegaly -Possibly secondary to ischemia given ST-depressions on EKG -Echocardiogram showed EF 20-25%. Hypokinesis and anterior lateral wall, akinesis in the cardiac apex. Pulmonary hypertension. LV function is significantly decreased from prior echo 2013 -Cardiology consult. Recommendations per cardiology appreciated -Per cardiology Lasix 80mg IV twice a day. -Per cardiology Metoprolol succinate 25 mg twice a day, will consider 3 times a day based on response 2. NSTEMI, acute. Present on admission. Active -EKG with ST-depressions of anteroseptal leads -Heparin drip cardiac protocol -Telemetry -Morphine and SL nitroglycerin PRN -Cardiology consult. Recommendations as in #1 -Trend troponin though likely to remain elevated in the setting of SUBHA 3. Acute hypoxemic respiratory failure. Present on admission. Active -Suspect secondary to above -Continue supplemental oxygen, BiPAP if needed 4. Dyspnea, acute. Present on admission. Improving -Suspect secondary to #1. Chest CT angio without evidence of PE -Infectious etiology seems less likely, procalcitonin negative and clinically without fever, chills, cough -Continue with supplemental oxygen 5. Lactic acidosis, acute. Present on admission. Active -Likely secondary to hypoxemia and heart failure -Trended down from 2.7 on admit to 2.0 today - Continue to monitor 6. Acute kidney injury. Present on admission. Active -Elevated creatinine persists with no indications of CKD -Suspect secondary to decreased oral intake and possibly CHF -Monitor with CMP 7. Possible urinary tract infection. Present on admission. Active - Urine showed 6-10 WBCs, no leukocyte esterase, negative nitrate. - Start ceftriaxone 1 g daily - Pending culture results 7. Hyponatremia, acute. Present on admission. Active -Likely secondary to CHF -Treatment as in #1 8. Hyperkalemia, acute. Present on admission. Active -Likely secondary to SUBHA remains elevated -Albuterol, Kayexalate -Continue to monitor 9. Coronary artery disease s/p CABG and stent, chronic. Present on admission -Continue home dose rosuvastatin 20mg daily -Continue ASA 81mg daily 10. Type 2 diabetes mellitus, chronic. Present on admission. Stable -Hold home Januvia -Bedside blood glucose checks -Low dose Lispro correction 11. Hypertension, chronic. Present on admission -Hold lisinopril secondary to SUBHA and hyperkalemia 12. Dyslipidemia, chronic. Present on admission -Continue home dose rosuvastatin 20mg daily 13. ADELA, chronic. Present on admission -Uses CPAP at home 14. Obesity, chronic. BMI 30 15. Anxiety. Present on admission. Ongoing - Restart home diazepam 5 mg 3 times a day Disposition: Patient currently awaiting resolution of CHF symptoms at which point he will be able to receive cardiac interventions Patient Status: Patient is admitted under inpatient status with expected length of stay greater than 2 midnights due to severity of presenting symptoms, risk of adverse event, and complexity of treatment plan. VTE Prophylaxis: Other (heparin gtt) VTE Mechanical Devices: Intermittant Pneumatic CD Resuscitation Status: CPR: Attempt Resuscitation Attending Statement The patient was seen and examined together with Dr. Arana on 08/26/2016 and I agree with the history, exam and plan as outlined in the note above. ROMAIN ARANA DO Aug 26, 2016 13:33 Adrian Shelby MD Aug 26, 2016 20:53
--- NOTE | 2016-08-26 15:09 | NUR ---
Social Work: Initial Assessment Data & Assessment: See Initial Assessment. EMR reviewed. Patient is a 76 y/o male that admitted for SOB, Hyperkalemia, Renal Insufficiency and abnormal EK.per H&P. Gardening Manager met with patient and patient's /STEPHANY/ Eneida Morgan [phone], to complete initial assessment, review discharge planning, and SW role reviewed. Patient does not have a Advance Directive/DPOA, but accepted the information provided by the SW. Patient's PCP is Dr. Stanley Tanner. Patient's insurance is Medicare and [employer]. Patient reports that he is 100% service connected at the [facility]. Patient does not have LTC insurance. Patient's re-admit score is 3 high-risk. Patient lives at home with his in a multi level home where he is independent at baseline. Tony has four steps to enter his home and four steps on the inside. Patient recently had knee surgery and does not drive due to that. Patient has a walker and cane. Patient has no SNF or HH history. Patient was going to Physical Therapy for Outpatient rehab prior to admitting. supervisor hand workers will continue to follow patient to access for needs upon discharge. SW provided patient with choice list of providers incase services are needed at discharge. Plan: supervisor hand workers will continue to follow patient to access for needs upon discharge. Patient will discharge home via POV. Charli Miranda LMSW, [facility] Addendum: 08/26/16 at 1535 by CHARLI MIRANDA SS Amended: Links added.
--- NOTE | 2016-08-26 15:31 | NUR ---
Evaluation completed. Please go to "Notes" then click on "Assessments and Notes" (bottom left corner of screen). Then select appropriate discipline tab on top of screen.
--- NOTE | 2016-08-26 18:34 | NUR ---
RESPIRATORY Patient's respiratory status continues to require higher levels of O2. Transitioned patient from BIPAP to high flow NC at 60% FiO2 and 50L, which he is tolerating well. BIPAP will remain in the room until tomorrow morning, in case patient begins to decline overnight. SpO2 97% on current settings, and all other vitals stable as well. Will continue to monitor respiratory status and vitals throughout NOC shift.
[2016-08-26] MEDS ORDERED: Furosemide 10 mg/mL 10 mL Inj IVPUSH SCH (20:30)
[2016-08-26] MEDS ORDERED: TIROFIBAN IV SCH (22:30)
[2016-08-27] VITALS (26 sets, daily range): BP systolic 97–111; BP diastolic 62–75; PULSE 100–123; RESP 15–30; O2SAT 90–98
[2016-08-27] MEDS: Heparin 5,000 Unit/mL Inj IVPUSH PRN (01:16)
[2016-08-27 03:27] LABS: BASOPHILS % (AUTO) 0.1 % (0-3); EOSINOPHILS % (AUTO) 0.1 % (0-5); MONOCYTES % (AUTO) 12.3 % (4-12); Mean Corpuscular Hemoglobin 28.9 pg (27.0-35.0); Mean Corpuscular Volume 89.9 fL (81-100); NEUTROPHILS % (AUTO) 74.7 % (40-74); Platelet Count 404 bil/L (150-400)
[2016-08-27] MEDS: Albuterol 1.25 mg/3 mL Inhalation Solution NEB PRN (03:55)
[2016-08-27] MEDS: Heparin 25K Unit/500mL 0.45 NS 25,000 UNIT in IV Premix 1 EACH IV SCH (05:16)
--- NOTE | 2016-08-27 05:24 | NUR ---
Sats/output/pain Patient continues on high flow oxygen throughout the night. Early this morning, sats decreased to 80's, and heart rate in creased to 120's. He felt like he "wasn't getting enough air." RT in and increased oxygen and gave him a neb which was helpful. Sats are 95% now on high flow 02. Tele has been sinus tach in 110's for most of the night, increasing with pain and feeling like he can't breathe to 120's. Requested Diazepam twice for anxiety and this was helpful. Patient was able to sleep and sats increased to mid-90's, while heart rate decreased to 100's. C?o right knee pain once and 5 mg oxycodone given with good effect. Addendum: 08/27/16 at 0531 by EVIE MONTES RN Integrilin switched to Aggrastat by pharmacist after he had a discussion with the manager mobile, as Integrilin is not available. Discussed this with patient and he has been tolerating it without problems so far.
[2016-08-27 06:01] LABS: TROPONIN T 2.22 ug/L (0.0-0.011)
[2016-08-27 08:02] LABS: Magnesium 2.2 mg/dL (1.6-2.6)
[2016-08-27] MEDS ORDERED: MeTOProlol XL 25 mg ER24 Tablet PO SCH (08:30)
[2016-08-27] MEDS: Furosemide 10 mg/mL 10 mL Inj IVPUSH SCH ×2 (08:30→16:44)
[2016-08-27] MEDS: Insulin LISPRO 300 Unit/3 mL Inj SUBQ SCH ×4 (08:41→21:31)
[2016-08-27] MEDS ORDERED: 0.9% Sodium Chloride 1,000 ML IV ONE (09:36)
[2016-08-27] MEDS ORDERED: Sodium Bicarb 8.4% Inj 150 MEQ in Dextrose 5% 1,000 ML IV ONE ×2 (09:36→10:05)
--- NOTE | 2016-08-27 10:33 | DRSVH ---
PROCEDURE: X-RAY CHEST ONE VIEW, PORTABLE ([id number]) INDICATIONS: pulm edema TECHNIQUE: One view of the chest was acquired. COMPARISON: [facility], CR, XR CHEST 1VW (PORTABLE), 08/25/2016, 6:01. FINDINGS: Surgical changes and devices: Median sternotomy wires. Lungs and pleura: Diffuse, widespread bilateral pulmonary interstitial and air space opacities are p resent. Small pleural effusions. No pneumothorax. Mediastinum: Mediastinal contours appear normal. Heart size is normal. Bones and chest wall: No suspicious bony lesions. Overlying soft tissues appear unremarkable. IMPRESSION: Worsening pulmonary edema and/or diffuse bilateral pneumonia. Dictated by: Satish Sharma Elfego Interpreted: Guerda Dueñas MD on 08/27/2016 at 10:32 Transcribed by: OBED on 08/27/2016 at 10:32 Approved by: Guerda Dueñas M.D. on 08/27/2016 at 17:10
[2016-08-27] MEDS ORDERED: Heparin 5,000 Units/500 mL NS Premix IV ONE (11:11)
[2016-08-27] MEDS ORDERED: Heparin 1,000 Unit/mL 10 mL Inj ONE (11:11)
[2016-08-27] MEDS ORDERED: Nitroglycerin 50,000 mcg/250 mL D5W Premix IV ONE (11:11)
[2016-08-27] MEDS ORDERED: Heparin 1,000 Units/500 mL NS Premix IV ONE (11:11)
[2016-08-27] MEDS ORDERED: Verapamil 2.5 mg/mL 2 mL Inj ONE (11:12)
[2016-08-27] MEDS ORDERED: 0.9% Sodium Chloride 1,000 ML ONE (11:13)
--- NOTE | 2016-08-27 11:34 | PCM.PNMED ---
Subjective Date of Service Aug 27, 2016 Subjective Overnight: Patient once again dropped his O2 saturation levels and becoming tachycardiac with a rate in the 120s. Per nursing report he felt like he "was not getting enough air" respiratory therapy increased FiO2 to 80% with nebulizer patient maintained saturations in the 90s with high flow O2. He remained in sinus tachycardia for most of the evening requesting diazepam for anxiety. Patient had episodes of hemoptysis early this morning with increased oxygenation demands. Today: Today patient awake and alert sitting up in hospital bed with BiPAP mask in place. Cable Systems Installer Dr. Ford in the room explaining to patient the necessity of a scheduled cardiac catheterization today following intubation. At time of dictation patient scheduled to be intubated with cardiac catheterization to follow. Patient is unable to speak in lengthy sentences regarding questions, has questions about catheterization insertion site, family at bedside with many questions regarding intubation length and prognosis. Exam Vital Signs Vital Sign - Last Date Time Temp Pulse Resp B/P Pulse Ox O2 Delivery O2 Flow Rate FiO2 08/27/16 11:07 113 23 103/64 96 BiPAP 70 08/27/16 08:16 37.1 08/27/16 08:07 60 Intake and Output 08/26/16 08/26/16 08/27/16 Cumulative From/Thru 14:59 22:59 06:59 08/25/16 06:10 - 08/27/16 05:22 Intake Total 887 ml 552 ml 2090 ml Output Total 450 ml 1050 ml 2450 ml Balance 437 ml -498 ml -360 ml Intake Oral 500 ml 200 ml 900 ml IV Total 387 ml 352 ml 1190 ml Output Urine Total 450 ml 1050 ml 2450 ml # Bowel Movements 0 0 Exam General: Mild/moderate respiratory distress, well-developed, well-nourished appropriately interactive. Complete physical limited secondary to expeditious nature of cardiology intervention. HEENT: Normocephalic, atraumatic. BiPAP in place. Neck: Supple. No jugular venous distension. Cardiovascular: Tachycardic rate with a regular rhythm. Unable to appreciate heart sounds completely secondary to BiPAP Pulmonary: Difficult to ascertain secondary to BiPAP, possible crackles left upper anterior lobes. No use of accessory muscles, increased respiratory effort. Abdomen: Soft, nontender, nondistended. Extremities: No clubbing, cyanosis, mild lower extremity edema. Skin: Normal temperature, turgor, and texture Neurological: Cranial nerves grossly intact. Psychiatric: Awake and able to indicate questions with hand motions, BiPAP making localization difficult for patient. IVs and Medications Medications Reviewed: Medications were reviewed in detail Lab and Diagnostics Result Diagram: 08/27/1630908/27/16309 X-Rays, CTs and MRIs CT ANGIO CHEST PULMONARY EMBOLISM IMPRESSION: No evidence of pulmonary embolism. Small bilateral pleural effusions with adjacent atelectasis. Rounded focus of low attenuation seen within the left fissure likely loculated fluid (i.e. pseudotumor). Recommend continued followup with PA and lateral chest radiographs to document resolution after treatment. Scattered groundglass opacities and mild interlobular septal thickening suggesting pulmonary edema. Please correlate clinically. Cardiomegaly and reflux of contrast into the IVC and hepatic veins, which suggests decreased cardiac output. Dictated and approved by: Darin Fonseca M.D. on 08/25/2016 at 8:06 X-RAY CHEST ONE VIEW, PORTABLE IMPRESSION: Patchy bibasilar consolidation, and focal opacity in the left midlung. This is better characterized on comparison CTA chest dated same day. Please see report. Dictated and approved by: Darin Fonseca M.D. on 08/25/2016 at 9:05 X-RAY CHEST ONE VIEW, PORTABLE IMPRESSION: Worsening pulmonary edema and/or diffuse bilateral pneumonia. Dictated by: Satish HURTADO Interpreted: Guerda Dueñas MD on 08/27/2016 at 10: 32 . Cardiac Echo Impressions . Echocardiogram Report Interpretation Summary: 1) Mild concentric left ventricular hypertophy with mild dilatation and severely reduced systolic function (EF 20-25%). 2) Mildly dilated right ventricle with moderately reduced function. 3) Anterolateral wall is severely hypokinetic and the entire apex is akinetic. Rest of the umanzor are mildly hypokinetic. 4) Age related calcification of the aortic and mitral valves present but no significant stenosis or regurgitation present. 5) Pulmonary hypertension present, estimated systolic pulmonary pressure of 62mmHg. 6) Compared to the Echo done 08/06/2012, LV function has decreased significantly from 55-60% to 2025% on today's study. Findings consistent with ischemic cardiomyopathy. Assessment & Plan Patient is a 76-year-old male with hypertension, type 2 diabetes mellitus, ADELA, hyperlipidemia, and CAD s/p CABG and stent placement presenting with shortness of breath and generalized weakness. Hospital day #3. 1. acute on chronic congestive heart failure due to NSTEMI. Present on admission. Active -Elevated Pro-BNP 5206. Imaging with evidence of pulmonary edema and cardiomegaly -Possibly secondary to ischemia given ST-depressions on EKG -Echocardiogram showed EF 20-25%. Hypokinesis and anterior lateral wall, akinesis in the cardiac apex. Pulmonary hypertension. LV function is significantly decreased from prior echo 2013 -Cardiology consult. Recommendations per cardiology appreciated -Per cardiology Lasix 80mg IV twice a day. -Urine output 0.5 L overnight -Per cardiology Metoprolol succinate 25 mg twice a day, will consider 3 times a day based on response -Overnight pulmonary edema got worse, requiring reinstitution of BiPAP -CXR from worsening pulmonary edema/pneumonia 2. NSTEMI, acute. Present on admission. Active -EKG with ST-depressions of anteroseptal leads -Heparin drip cardiac protocol -Telemetry -Morphine and SL nitroglycerin PRN -Cardiology consult. Recommendations as in #1 -Troponin continues to remain elevated, trending up from 2.06-2.22 -patient going for catheterization,plan is to intubate if he doesn't tolerate to be flat 3. Acute hypoxemic respiratory failure. Present on admission. Active -Suspect secondary to above -Continued need for BiPAP -Intubation and Catheterization as an #2 4. Dyspnea, acute. Present on admission ongoing -Suspect secondary to #1. Chest CT angio without evidence of PE -Infectious etiology seems less likely, procalcitonin negative and clinically without fever, chills, cough -Continue with supplemental oxygen 5. Lactic acidosis, acute. Present on admission. Active -Likely secondary to hypoxemia and heart failure -Trended down from 2.7 on admit to 1.4 today -Continue to monitor 6. Acute kidney injury. Present on admission. Active -Elevated creatinine persists with no indications of CKD -Creatinine trended down slightly overnight from 1.79 to1.65 -Suspect secondary to decreased oral intake and possibly CHF, as well as contrast from CT scan -Monitor with CMP 7. Possible urinary tract infection. Present on admission. Active - Urine showed 6-10 WBCs, no leukocyte esterase, negative nitrate. - Start ceftriaxone 1 g daily -Urine culture negative to date 7. Hyponatremia, acute. Present on admission. Active -Likely secondary to CHF -Treatment as in #1 8. Hyperkalemia, acute. Present on admission. Active -Likely secondary to SUBHA remains elevated -Albuterol, Kayexalate -Continue to monitor 9. Coronary artery disease s/p CABG and stent, chronic. Present on admission -Continue home dose rosuvastatin 20mg daily -Continue ASA 81mg daily 10. Type 2 diabetes mellitus, chronic. Present on admission. Stable -Hold home Januvia -Bedside blood glucose checks -Low dose Lispro correction 11. Hypertension, chronic. Present on admission -Hold lisinopril secondary to SUBHA and hyperkalemia 12. Dyslipidemia, chronic. Present on admission -Continue home dose rosuvastatin 20mg daily 13. ADELA, chronic. Present on admission -Uses CPAP at home 14. Obesity, chronic. BMI 30 15. Anxiety. Present on admission. Ongoing - Restart home diazepam 5 mg 3 times a day Disposition: Patient remain inpatient status most likely upgraded to CCU status post cardiac catheterization as patient will require intubation for successful catheterization secondary to respiratory status. Pain Evaluation: Adequate Pain Control VTE Prophylaxis: Other (heparin gtt) VTE Mechanical Devices: Intermittant Pneumatic CD Resuscitation Status: CPR: Attempt Resuscitation Attending Statement The patient was seen and examined together with Dr. Arana on 08/27/2016 and I agree with the history, exam and plan as outlined in the note above. ROMAIN ARANA DO Aug 27, 2016 11:34 Adrian Shelby MD Aug 27, 2016 17:39 Adrian Shelby MD Aug 27, 2016 17:39
--- NOTE | 2016-08-27 11:51 | NUR ---
Hemoptysis/Anticoagulants/Oxygen/Tele: P: patient reporting SOB (SpO2 low 90's) despite being on high flow oxygen 60L 75% and increasing hemoptysis. HR 120's I: PTT Therapeutic at 73.5. Dr Pacheco notified. Ordered anticoagulants to be stopped. RT was called to assess pt and patient was placed on BiPAP 70%. Scheduled Metoprolol and Lasix was administered. E: Patient states breathing is better and is able to tolerate BiPAP. SpO2 high 90's and patient is now able to lie flat. No more reports of hemoptysis. Tele: Sinus Tach up to 115 at rest. De Anda continues to drain pale urine to gravity. Will continue to monitor.
--- NOTE | 2016-08-27 12:07 | PROG NOTE ---
[address] [address] PROGRESS NOTE PATIENT: NISHI BOSWELL : 1940 MR#: [id number] ADMIT: 08/25/2016 JOB ID: [id number] DATE: 08/27/2016 PROGRESS NOTE: The patient this morning is complaining of progressive dyspnea. He has had progressive requirements for higher dose oxygen through the night, and by the family's report, he had some scant hemoptysis yesterday morning, and about 4:00 this morning had more significant hemoptysis. He denies any symptoms of chest discomfort and remains tachycardic with heart rates in the 110 to 120 range with blood pressures in the 110 range. PHYSICAL EXAMINATION: He has prominent jugular venous distention visible today. His heart rate is regular with a prominent ventricular gallop. Lungs demonstrate slightly reduced expiratory flow rate but without obvious wheezing or consolidation. LABORATORY DATA: Notable for a moderate anemia with a hemoglobin dropping to 8.9. Chemistries continue to show moderate hyponatremia. His creatinine has improved to 1.65 which is about his baseline. Chest x-ray was performed earlier this morning at 5:00 and demonstrates prominent bilateral pulmonary edema. ASSESSMENT AND PLAN: I had a long talk with the family this morning. I had hoped that we would be able to wait an additional day to let the kidneys recover from the previous x-ray contrast exposure and for his pulmonary congestion to improve. However, it is clear that he has had progressive pulmonary congestion despite aggressive medical therapy with now acute pulmonary edema and persistent tachycardia with gradually progressive rise in his troponin suggesting that we really do not have the luxury of waiting any longer and need to take him to the catheterization laboratory for revascularization. The family understands that there is significant risk in terms of both his kidney function and the risk of bleeding issues with his hemoptysis. Hopefully this can be controlled once he is intubated and we can hopefully diurese him better once he is revascularized, but all of these issues are uncertain as the family is well aware. The patient is also aware of the situation. They understand the need to proceed to the catheterization laboratory and the associated risks. The patient has signed the consent form for that, and I have spoken with Dr. Agrawal and pulmonary team to manage getting him on to the ventilator this morning. Once he is stable there, he will go to the catheterization laboratory with Dr. Espinoza. I will make Dr. Espinoza aware of the issues with his hemoptysis and renal insufficiency as well.
--- NOTE | 2016-08-27 12:22 | NUR ---
Off unit to Ring Sorter:
[2016-08-27] MEDS ORDERED: fentaNYL-PF 50 mCg/mL 2 mL Inj ONE (12:36)
[2016-08-27] MEDS ORDERED: Furosemide 10 mg/mL 2 mL Inj ONE (13:20)
[2016-08-27] MEDS ORDERED: Furosemide 10 mg/mL 4 mL Inj IVPUSH ONE (14:00)
[2016-08-27] MEDS ORDERED: Nitroglycerin 50 mg/250 mL D5W 50,000 MCG in IV Premix 1 EACH IV SCH (14:00)
--- NOTE | 2016-08-27 14:08 | NUR ---
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
--- NOTE | 2016-08-27 14:23 | CONS ---
[address] [address] CONSULTATION REPORT PATIENT: NISHI BOSWELL : 1940 MR#: [id number] ADMIT: 08/25/2016 JOB ID: [id number] DATE OF SERVICE: 08/27/2016 REQUESTING PHYSICIAN: Darrell Pacheco MD. REASON FOR CONSULTATION: Respiratory failure. HISTORY OF PRESENT ILLNESS: The patient is a 76-year-old, male, admitted August 25, 2010, for shortness of breath along with generalized weakness. He was found to have am O2 saturation of 76%, brought to the emergency department where he was admitted for shortness of breath. He was found to have a [id number] elevated myocardial infarction, felt to be probably in the circumflex distribution. He has had increasing shortness of breath associated with increasing pulmonary congestion and chest pain. Troponins continue to elevate. The patient was started on BiPAP ventilation. Seemed to improve but had difficulty assuming the supine position. Concern is about necessity to require catheterization as his cardiac status continues to deteriorate. The patient has known coronary artery disease, status post stents. Cardiac symptoms seem to worsen after the placement of a right knee arthroplasty on July 29, 2016. He also suffers from hypertension. PAST MEDICAL HISTORY: Diabetes mellitus, non-insulin dependent. Has obstructive sleep apnea. REVIEW OF SYSTEMS: No anginal-type chest pain. No fever, chills. No nausea, vomiting. MEDICATIONS ON ADMISSION: Include Aspirin, Carvedilol, cholecalciferol, ferrous sulfate, lisinopril, multivites, sitagliptin, diazepam, senna, oxycodone, rosuvastatin. ALLERGIES: Include: 1. SULFA. 2. ATORVASTATIN. 3. LACTOSE. 4. TRAMADOL. SMOKING HISTORY: Former smoker. Remainder of review of systems, family history, social history, as per admitting history and physical. OBJECTIVE: Temperature 37.1, pulse 110-120, respiratory rate 23 with the patient lying supine, 16 with the patient sitting upright. Blood pressure 103/64, O2 on nasal cannula is somewhere in the low 90s. On high-flow oxygen an FiO2 of 0.7 L flow 60 L a minute, O2 saturation was 95%, but the patient was unable to assume the supine position. Currently on BiPAP with an FiO2 of 0.7, IPAP of 14, EPAP of 6, respiratory rate of 16, and breathing about low 20s with tidal volumes in the mid 600s. He is currently lying supine, feeling comfortable with no change in his pulmonary mechanics. Chest: Fairly good breath sounds. There were some crackles at the right base with significant crackles at the left base extending up into the left mid lung field. No use of accessory muscles at rest. Heart: Somewhat irregular rhythm. Heart tones seem normal. No S3 appreciated. Abdomen soft. Extremities show 1+ pretibial edema. Distal extremities were warm. LABORATORY DATA: Shows a white count of 18,100 with 74 polymorphonuclears, 12 lymphocytes, 12 monocytes. Hemoglobin stable at 8.9. Platelet count stable at 404,000. Sodium 128, potassium 4.4, chloride 91, CO2 19. BUN 45 and stable. Creatinine 1.6 and stable. Lactic acid 1.4. Calcium 8.5 with an albumin of 3.1. Magnesium normal at 2.2. AST mildly elevated at 97, upper limits of normal being 50 units/L. Troponin 2.22 and somewhat fluctuating but overall rising. Chest x-ray shows increased interstitial markings. May have a fluid collection in a fissure in the left lower lobe. CT scan on admission of August 25, 2016 shows no intraluminal defects to suggest central pulmonary embolism. There are diffuse areas of atelectasis and ground-glass opacities. ASSESSMENT: Coronary artery disease. Seems like much of this is congestive as he apparently has done better after being given 80 mg Lasix. In addition, he is coughing up some blood probably due to anticoagulation along with elevated left atrial pressures, leading to increase in hydrostatic pressure in the pulmonary system. On CT scan, there is reflux of contrast into the hepatic veins and IVC suggestive of either high right-sided pressures or a low cardiac output. Echocardiogram suggests an ejection fraction of 20% to 25% with dilated right ventricle with reduced function with pulmonary hypertension, with a systolic pulmonary artery pressure of 62. The patient currently doing reasonably well in the supine position. Will discuss invasive Cardiology about the ability to perform the catheterization on BiPAP as he is doing reasonably well on BiPAP. ASSESSMENT: Seems to have improved quite a bit With BiPAP as well as with the diuresis. At this point, I do not think he needs to be intubated. will discuss with nursing that we can give him the pulmonary support he needs, respiratory therapy as well, after discussing with Interventional Radiology. I would prefer not to intubate him if he does not need to be intubated for the catheterization as I am concerned about his pulmonary hemodynamics after intubation and the sedatives required. Thank you so much, Dr. Pacheco, for asking us to see this most interesting individual. Will follow his respiratory status closely along with you.
[2016-08-27] MEDS: cefTRIAXone Inj 1,000 MG in Dextrose 5% Minibag Plus 50 ML IV SCH (14:37)
[2016-08-27] MEDS ORDERED: MeTOProlol XL 25 mg ER24 Tablet PO ONE ×2 (15:10→22:00)
[2016-08-27] MEDS: Sodium Chloride LOK Flush 10 mL Syringe IVFLUSH SCH ×2 (16:44→21:31)
--- NOTE | 2016-08-27 19:22 | DI95 ---
[address] [address] INTERVENTIONAL CARDIAC CATHETERIZATION PATIENT: NISHI BOSWELL : 1940 MR#: [id number] ADMIT: 08/25/2016 JOB ID: [id number] PROCEDURE: Selective right and left coronary angiography, left internal mammary artery angiography, left heart catheterization, percutaneous intervention on the circumflex. Right heart catheterization. INDICATION: Pulmonary edema. PROCEDURAL DETAILS: The reader and the visual basic developer are referred to the procedure log for complete details. Briefly, right femoral approach, 6-Indonesian system. HEMODYNAMICS: 1. Right heart catheterization revealed pulmonary pressures of 66/30. 2. Pulmonary artery saturation was 43%. 3. RV pressure was 57/14. 4. RA pressure was a mean of 16. 5. saturation was 97%. This was on BiPAP. 6. His estimated Selin cardiac output was 4 L/minute. 7. Left heart catheterization revealed an LVEDP of 35-40. There was no gradient upon pullback. ANGIOGRAPHIC FINDINGS: 1. Right coronary artery is dominant. In its mid segment, it has 20% to 30% disease. Mild luminal irregularities are noted. No critical stenosis. It is a dominant vessel. 2. Left main short. No significant disease. 3. LAD in its ostium has a 90% tubular stenosis. The remainder of the proximal vessel has diffuse 60% to 70% tubular stenosis. It is totally occluded farther down. 4. Circumflex has a 90% to 99% stenosis in its proximal segment. The first major obtuse marginal branch shows slow CITLALY-1 flow. The AV groove also shows slow CITLALY 1-2 flow. The second obtuse marginal branch appears to be a diffusely diseased vessel. 5. HUDSON angiography. HUDSON to LAD is patent. There is about a 30% stenosis at the site of LAD anastomosis. INTERVENTIONAL REPORT: We then proceeded ahead with an intervention on the circumflex. A Runthrough wire was placed in the distal obtuse marginal branch. The lesion was pre-dilated with a 2.0 balloon and then stented with a 3.0 x 15 mm Xience drug-coated stent at 14 atmospheres with excellent angiographic results. In summary, successful intervention on the proximal circumflex. The patient is advised dual antiplatelet therapy for at least six months post procedure.
[2016-08-28] VITALS (11 sets, daily range): BP systolic 98–103; BP diastolic 57–70; PULSE 98–113; RESP 15–25; O2SAT 89–98
[2016-08-28] MEDS: Furosemide 10 mg/mL 10 mL Inj IVPUSH SCH ×3 (01:16→16:29)
[2016-08-28 03:24] LABS: BASOPHILS % (AUTO) 0.1 % (0-3); EOSINOPHILS % (AUTO) 0.1 % (0-5); MONOCYTES % (AUTO) 13.3 % (4-12); Mean Corpuscular Hemoglobin 28.8 pg (27.0-35.0); Mean Corpuscular Volume 91.6 fL (81-100); NEUTROPHILS % (AUTO) 71.7 % (40-74); Platelet Count 419 bil/L (150-400)
[2016-08-28 04:03] LABS: Magnesium 2.2 mg/dL (1.6-2.6)
--- NOTE | 2016-08-28 05:12 | ABG ---
DateTimeAnalyzed 05:09:00 -_ pH ____7.458 - 7.350 7.450 pCO2 ___40.5__ -mmHg 35.0 45.0 pO2 ___58.2__ -mmHg 69.0 116 HCO3- ___28.2__ -mmol/L 22.0 26.0 ABE ____4.4__ -mmol/L -2.0 2.0 tHb ____8.9__ -g/dL O2Hb ___87.7__ -% COHb ____1.7__ -% MetHb ____1.1__ -% sO2 ___90.2__ -% 25.0 FIO2 ___50.0__ -% Drawn By MM - Date/Time Notified____ 05:11:00 -_ Liter_Flow ____7.0__ -L/min Oxygen Device 1 __OXYMASK - Notified By MM - B 749 -mmHg tO2 ___11.0__ -Vol% Janes test _Positive -
[2016-08-28] MEDS: MeTOProlol XL 50 mg ER24 Tablet PO SCH ×2 (08:43→19:36)
[2016-08-28] MEDS: Insulin LISPRO 300 Unit/3 mL Inj SUBQ SCH ×4 (08:43→19:40)
[2016-08-28] MEDS: Sodium Chloride LOK Flush 10 mL Syringe IVFLUSH SCH ×3 (08:44→21:17)
--- NOTE | 2016-08-28 08:58 | DRSVH ---
PROCEDURE: X-RAY CHEST ONE VIEW, PORTABLE ([id number]) INDICATIONS: Resp Distress TECHNIQUE: One view of the chest was acquired. COMPARISON: [facility], CR, XR CHEST 1VW (PORTABLE), 08/27/2016, 4:45. FINDINGS: Surgical changes and devices: Median sternotomy wires. Lungs and pleura: Diffuse, widespread bilateral pulmonary interstitial and air space opacities are p resent and similar compared to prior exam. Small pleural effusions. No pneumothorax. Mediastinum: Mediastinal contours appear normal. Heart size is normal. Bones and chest wall: No suspicious bony lesions. Overlying soft tissues appear unremarkable. IMPRESSION: No significant change in pulmonary edema and/or diffuse bilateral pneumonia. Dictated by: Satish Sharma RRA Interpreted: Virgen Yee MD on 08/28/2016 at 8:57 Transcribed by: ABBY on 08/28/2016 at 8:58 Approved by: Virgen Yee M.D. on 08/28/2016 at 22:15
--- NOTE | 2016-08-28 09:54 | PROG NOTE ---
[address] [address] PROGRESS NOTE PATIENT: NISHI BOSWELL : 1940 MR#: [id number] ADMIT: 08/25/2016 JOB ID: [id number] DATE: 08/28/2016 SUBJECTIVE: The patient underwent coronary angiography and intervention to a subtotally occluded proximal circumflex yesterday afternoon. He seems somewhat better, although he remains tachycardic. He no longer requires CPAP mask but is on a 12 L OxyMask, with O2 saturation in the 92-93% range. Blood pressure has been ranging in the 90-100 systolic range, and his heart rate has been averaging in the 100-110 range in sinus tachycardia. He states that he is feeling somewhat better. His appetite is poor, and he is complaining of some discomfort in his right knee. PHYSICAL EXAM: On exam, his jugular venous pressure remains significantly elevated. Cardiac examination continues to show evidence of a regular tachycardia with a summation ventricular gallop. Distal extremities are warm and well perfused. He has some degree of pallor related to his anemia noted, but he is awake and alert. LABORATORY DATA: Shows a white count of 18,000, hemoglobin of 8.9, platelet count of 419,000. Chemistries demonstrate persistent hyponatremia with a sodium of 129, potassium 4.3, creatinine 1.71, up slightly from 1.65 yesterday. Chest x-ray shows evidence of improved pulmonary edema. IMPRESSION: The patient is somewhat improved. His renal function is relatively stable today, but will need to wait to see how he looks tomorrow. He is diuresing, but I would like to see him diurese a bit more aggressively. He is on 80 mg of furosemide q.8 h., and I am going to add metolazone 5 mg today in addition to a small dose of spironolactone to see how he does. He was started on metoprolol succinate 50 b.i.d., which he seems to be tolerating fine, and I am going to stick with that dose for today, but if he remains tachycardic, will gradually increase it as tolerated. Limited repeat echocardiogram will be performed to evaluate the LV systolic function today.
[2016-08-28] MEDS: Nitroglycerin 2% 1 Gm Ointment TOPICAL SCH ×2 (11:01→16:29)
[2016-08-28] MEDS: Albuterol 1.25 mg/3 mL Inhalation Solution NEB PRN (11:08)
[2016-08-28] MEDS: cefTRIAXone Inj 1,000 MG in Dextrose 5% Minibag Plus 50 ML IV SCH (11:23)
--- NOTE | 2016-08-28 12:54 | DRSVH ---
[facility] [address] [facility] [facility] [place] [address] Echocardiogram Report Name: NISHI BOSWELL Date : 08/28/2016 Height: 69 in Hospital Exam Location: [facility] Weight: 213 lb Gender: Male BSA: 2.1 m2 : 1940 Age: 76 yrs BP: 101/63 mmHg Reason For Study: Congestive Heart Failure History: CABG Ordering Physician: Performed By: Angela Slater Interpretation Summary The left ventricle is mildly dilated. Left ventricular systolic function is severely reduced. The ejection fraction is estimated to be 25-30%. There has been no significant change since the previous study. Compared to the prior exam, the left ventricular wall motion has not changed. The basal inferoseptal wall has the most preserved augmentation in comparison with rest of LV segments. The apical septum is preserved as well. The rest of LV is moderately to severely hypokinetic. The right ventricle is not well visualized. Right ventricular systolic function is mild to moderately reduced. Right ventricular systolic pressure is estimated to be 50 mmHg plus the clinically estimated CVP which cannot be estimated on this exam. There is mild to moderate mitral regurgitation. There is no other significant valvular heart disease. Procedure: A two-dimensional transthoracic echocardiogram with color flow and Doppler was performed in limited views only. Comparison is made with the echocardiogram of 08/25/2016. A contrast injection of Definity was performed to improve assessment of LV function. Left Ventricle: The left ventricle is mildly dilated. Left ventricular wall thickness is mildly increased. Left ventricular systolic function is severely reduced. The ejection fraction is estimated to be 25-30%. There has been no significant change since the previous study. Compared to the prior exam, the left ventricular wall motion has not changed. The basal inferoseptal wall has the most preserved augmentation in comparison with rest of LV segments. The apical septum is preserved as well. The rest of LV is moderately to severely hypokinetic. Right Ventricle: The right ventricle is not well visualized. Right ventricular systolic function is mild to moderately reduced. Mitral Valve: There is mild to moderate mitral regurgitation. Tricuspid Valve: There is mild tricuspid regurgitation. Right ventricular systolic pressure is estimated to be 50 mmHg plus the clinically estimated CVP which cannot be estimated on this exam. Pulmonic Valve: There is no other significant valvular heart disease. Great Vessels: The IVC has a measurement of 25 mm. The patient could not perform an adequate sniff to assess IVC collapse. Pericardium/ Pleura There is no pericardial effusion. MMode/2D Measurements & Calculations LVIDd IVC diam LV solis. diameter/BSA LV sys. diameter/BSA : 6.2 cm : 2.5 cm (cm/m^2): 2.9 (cm/m^2): 2.3 LVIDs : 5.0 cm FS: 20.1 % IVSd : 1.cm LVPWd : 1.1 cm TAPSE : 1.4 cm Doppler Measurements & Calculations MV E max emanuel MV E/A: 1.9 TR max emanuel MV dec time : 94.5 cm/sec Med Peak E' Emanuel : 352.9 cm/sec : 0.14 sec MV A max emanuel TR max PG : 50.2 cm/sec E/E' med: 13.0 : 49.8 mmHg MV P1/2t: 40.1 msec Lat Peak E' Emanuel E/E' lat: 13.6 E/e' average: 13.3 MV A dur: 0.09 sec MV P1/2t max emanuel MVA(P1/2t): 5.5 cm2 Reading Physician:KATHIE
--- NOTE | 2016-08-28 14:33 | PCM.PNMED ---
Subjective Date of Service Aug 28, 2016 Subjective Overnight: He received cardiac catheterization with stent placement. He did not require intubation prior to procedure as previously thought. Was able to tolerated procedure with BiPAP. He was able to maintain his saturations in the mid 90s with an Oxy mask. He remained in sinus tachycardia with a rate in the 100's overnight. Today: Patient awake and alert sitting up in hospital bed with oxygen mask in place. Appropriately active and able to answer questions. Overall he states he feels much better than on admission, his breathing is much improved and he denies any chest pain. He endorses a mild appetite, no nausea and vomiting, no abdominal pain. Exam Vital Signs Vital Sign - Last Date Time Temp Pulse Resp B/P Pulse Ox O2 Delivery O2 Flow Rate FiO2 08/28/16 11:11 103 92 OxyMask 12.00 08/28/16 11:05 37.0 25 101/63 08/27/16 18:23 65 Intake and Output 08/27/16 08/27/16 08/28/16 Cumulative From/Thru 15:00 23:00 07:00 08/25/16 06:10 - 08/28/16 06:50 Intake Total 485 ml 400 ml 2975 ml Output Total 1400 ml 1450 ml 5300 ml Balance -915 ml -1050 ml -2325 ml Intake Oral 150 ml 400 ml 1450 ml IV Total 335 ml 1525 ml Output Urine Total 1400 ml 1450 ml 5300 ml # Bowel Movements 0 0 Exam General: Awake and sitting up in hospital bed in no apparent distress. Appropriate and interactive. HEENT: Normocephalic, atraumatic. Oxygen mask in place. PERRL Cardiovascular: Tachycardic rate with a regular rhythm. No murmurs appreciated Pulmonary: Upper anterior lobes clear to auscultation, bilateral crackles heard in the lower lobes. Scar midline sternum area from previous surgery Abdomen: Soft, nontender, nondistended. Extremities: No clubbing, cyanosis, mild lower extremity edema. Skin: Normal temperature, turgor, and texture Neurological: Cranial nerves grossly intact. Psychiatric: Normal mood and affect. Alert and oriented to person place and time IVs and Medications Medications Reviewed: Medications were reviewed in detail Lab and Diagnostics Result Diagram: 08/28/166 08/28/166 X-Rays, CTs and MRIs CT ANGIO CHEST PULMONARY EMBOLISM IMPRESSION: No evidence of pulmonary embolism. Small bilateral pleural effusions with adjacent atelectasis. Rounded focus of low attenuation seen within the left fissure likely loculated fluid (i.e. pseudotumor). Recommend continued followup with PA and lateral chest radiographs to document resolution after treatment. Scattered groundglass opacities and mild interlobular septal thickening suggesting pulmonary edema. Please correlate clinically. Cardiomegaly and reflux of contrast into the IVC and hepatic veins, which suggests decreased cardiac output. Dictated and approved by: Darin Fonseca M.D. on 08/25/2016 at 8:06 X-RAY CHEST ONE VIEW, PORTABLE IMPRESSION: Patchy bibasilar consolidation, and focal opacity in the left midlung. This is better characterized on comparison CTA chest dated same day. Please see report. Dictated and approved by: Darin Fonseca M.D. on 08/25/2016 at 9:05 X-RAY CHEST ONE VIEW, PORTABLE IMPRESSION: Worsening pulmonary edema and/or diffuse bilateral pneumonia. Dictated by: Satish Sharma Elfego Interpreted: Guerda Dueñas MD on 08/27/2016 at 10: 32 . Cardiac Echo Impressions . Echocardiogram Report Interpretation Summary: 1) Mild concentric left ventricular hypertophy with mild dilatation and severely reduced systolic function (EF 20-25%). 2) Mildly dilated right ventricle with moderately reduced function. 3) Anterolateral wall is severely hypokinetic and the entire apex is akinetic. Rest of the umanzor are mildly hypokinetic. 4) Age related calcification of the aortic and mitral valves present but no significant stenosis or regurgitation present. 5) Pulmonary hypertension present, estimated systolic pulmonary pressure of 62mmHg. 6) Compared to the Echo done 08/06/2012, LV function has decreased significantly from 55-60% to 2025% on today's study. Findings consistent with ischemic cardiomyopathy. Echocardiogram Report Interpretation Summary Assessment & Plan Patient is a 76-year-old male with hypertension, type 2 diabetes mellitus, ADELA, hyperlipidemia, and CAD s/p CABG and stent placement presenting with shortness of breath and generalized weakness. Hospital day #4. 1. acute on chronic congestive heart failure due to NSTEMI. Present on admission. Improving -Elevated Pro-BNP 5206. Imaging with evidence of pulmonary edema and cardiomegaly -Possibly secondary to ischemia given ST-depressions on EKG - Cardiology consult, the recommendations are appreciated -Echocardiogram showed EF 20-25%. Hypokinesis and anterior lateral wall, akinesis in the cardiac apex. Pulmonary hypertension. LV function is significantly decreased from prior echo 2013 -Repeat ECHO post catheterization procedure continues to show a reduced systolic function though EF is now reported to be 25-30%, otherwise no significant change. -Cardiology consult. Recommendations per cardiology appreciated -Per cardiology Lasix 80mg IV TID. -Urine output 1450 ML's overnight -Per cardiology Metoprolol succinate 50 mg twice a day -CXR continues to show pulmonary edema 2. NSTEMI, acute. Present on admission. Improved -EKG with ST-depressions of anteroseptal leads -Cardiac catheterization with stent placement to circumflex -Telemetry -Morphine and SL nitroglycerin PRN -Aspirin -Plavix -Rosuvastatin 20 mg daily 3. Acute hypoxemic respiratory failure. Present on admission. Resolved -Suspect secondary to above -Weaned off BiPAP, currently saturating well with oxy mask 4. Dyspnea, acute. Present on admission ongoing -Suspect secondary to #1. Chest CT angio without evidence of PE -Infectious etiology seems less likely, procalcitonin slightly elevated 0.32 and clinically without fever, chills, cough though does have leucocytosis -Continue with supplemental oxygen 5. Leukocytosis. Present on admission. Ongoing -White count yuki from 12 1 admit to a peak of 19, today 18. -Was likely secondary to stress response, infectious etiology also on differential -Continue to monitor daily CXR, Procal, WBC 6. Lactic acidosis, acute. Present on admission. Resolved -Likely secondary to hypoxemia and heart failure -Trended down from 2.7 on admit to 1.7 today -Continue to monitor 7. Acute kidney injury. Present on admission. Active -Most likely secondary to IV contrast for initial PE imaging study -Trended down than elevated once again status post cardiac catheterization -Monitor with CMP -Hold fluids secondary to #1 8. Possible urinary tract infection. Present on admission. Active - Urine showed 6-10 WBCs, no leukocyte esterase, negative nitrate. -Urine culture negative to date -Ceftriaxone DC -patient continues to have leukocytosis wbc 18,possibly due to stress,will monitor for now -will consider removing beckett once high dose diuretics is tapered 7. Hyponatremia, acute. Present on admission. Active -Likely secondary to CHF -Treatment as in #1 8. Hyperkalemia, acute. Present on admission. Resolved -Likely secondary to SUBHA remains elevated -Albuterol, Kayexalate -Continue to monitor 9. Coronary artery disease s/p CABG and stent, chronic. Present on admission -Aspirin, Plavix, statin as in #1 10. Type 2 diabetes mellitus, chronic. Present on admission. Stable -Hold home Januvia -Bedside blood glucose checks -Low dose Lispro correction 11. Hypertension, chronic. Present on admission -Hold lisinopril secondary to SUBHA and hyperkalemia 12. Dyslipidemia, chronic. Present on admission -Continue home dose rosuvastatin 20mg daily 13. ADELA, chronic. Present on admission -Uses CPAP at home 14. Obesity, chronic. BMI 30 15. Anxiety. Present on admission. Ongoing - Restart home diazepam 5 mg 3 times a day Disposition: Patient remain inpatient status in [facility], anticipate at least 2-3 more days and hospital for close monitoring. VTE Prophylaxis: Sub-Q Heparin (Unfractionated) VTE Mechanical Devices: Intermittant Pneumatic CD Resuscitation Status: CPR: Attempt Resuscitation Attending Statement The patient was seen and examined independently on 08/28/2016 and case discussed with Dr. Arana . I agree with the history, exam and plan as outlined in the note above. ROMAIN ARANA DO Aug 28, 2016 14:33 Adrian Shelby MD Aug 29, 2016 06:25 ROMAIN ARANA DO Aug 28, 2016 14:33
[2016-08-28] MEDS: Heparin 5,000 Unit/mL Inj SUBQ SCH (21:17)
[2016-08-29] VITALS (9 sets, daily range): BP systolic 98–105; BP diastolic 60–64; PULSE 96–101; RESP 17–20; O2SAT 93–98
[2016-08-29] MEDS: Albuterol 1.25 mg/3 mL Inhalation Solution NEB PRN (01:18)
[2016-08-29] MEDS: Furosemide 10 mg/mL 10 mL Inj IVPUSH SCH ×3 (01:44→20:30)
[2016-08-29] MEDS: Nitroglycerin 2% 1 Gm Ointment TOPICAL SCH ×3 (01:44→15:55)
[2016-08-29 03:31] LABS: BASOPHILS % (AUTO) 0.2 % (0-3); EOSINOPHILS % (AUTO) 0.4 % (0-5); Mean Corpuscular Hemoglobin 29.1 pg (27.0-35.0); Mean Corpuscular Volume 90.3 fL (81-100); NEUTROPHILS % (AUTO) 70.6 % (40-74); Platelet Count 364 bil/L (150-400)
[2016-08-29 04:05] LABS: Magnesium 2.1 mg/dL (1.6-2.6)
--- NOTE | 2016-08-29 05:27 | NUR ---
Oxygenation/Apetite Pt sats stable on 12L oxymask in mid 90's. Pt attempted to eat few bites of dinner. Attempted to place on 6L NC for a short time while eating, desatted quickly to 87%. Placed back on oxymask and instructed to deep breath between chewing single bites. Pt states he has no apetite after 2 bites. continued on 11-12L oxymask overnight without complication.
[2016-08-29] MEDS: Heparin 5,000 Unit/mL Inj SUBQ SCH ×3 (06:28→21:23)
[2016-08-29] MEDS: MeTOProlol XL 50 mg ER24 Tablet PO SCH ×2 (07:45→20:30)
[2016-08-29] MEDS: Insulin LISPRO 300 Unit/3 mL Inj SUBQ SCH ×4 (07:46→21:25)
[2016-08-29] MEDS: Sodium Chloride LOK Flush 10 mL Syringe IVFLUSH SCH ×3 (07:46→21:25)
--- NOTE | 2016-08-29 10:04 | DRSVH ---
PROCEDURE: X-RAY CHEST ONE VIEW, PORTABLE ([id number]) INDICATIONS: pulm edema TECHNIQUE: One view of the chest was acquired. COMPARISON: [facility], CR, XR CHEST 1VW (PORTABLE), 08/28/2016, 5:18. FINDINGS: Surgical changes and devices: Median sternotomy wires. Lungs and pleura: Diffuse, widespread bilateral pulmonary interstitial and air space opacities are p resent and similar compared to prior exam. Small pleural effusions. No pneumothorax. Mediastinum: Mediastinal contours appear normal. Heart size is normal. Bones and chest wall: No suspicious bony lesions. Overlying soft tissues appear unremarkable. IMPRESSION: No significant change from prior examination suggesting pulmonary edema and/or diffuse bi lateral pneumonia. Dictated by: Satish Sharma RRElfego Interpreted: Guerda Dueñas MD on 08/29/2016 at 10:03 Transcribed by: OBED on 08/29/2016 at 10:04 Approved by: Guerda Dueñas M.D. on 08/29/2016 at 11:17
[2016-08-29] MEDS: Polyethylene Glycol (PEG) 17 Gm Powder PO SCH (14:09)
--- NOTE | 2016-08-29 14:18 | PROG NOTE ---
[address] [address] PROGRESS NOTE PATIENT: NISHI BOSWELL : 1940 MR#: [id number] ADMIT: 08/25/2016 JOB ID: [id number] DATE: 08/29/2016 PROGRESS NOTE: The patient is doing better clinically today. He remains on oxygen mask at 10 L with O2 saturation of 93%. His dyspnea has improved. His heart rate has settled in at around 100 beats per minute sinus rhythm, and blood pressures are in the 90 to 100 range as well. He is actually sitting up in bed eating breakfast this morning. He has a great sense of humor and generally seems to be getting a little bit stronger. He reports that he was able to stand by the bedside yesterday. He continues to diurese about 1.5 L to 2 L daily. His examination is unchanged from yesterday, other than his general appearance which looks quite a bit stronger and with less distress. His laboratory work is notable for persistent anemia with a hemoglobin of 8.7. His chemistries continue to show hyponatremia. His BUN is up slightly, but his creatinine is slightly improved at 1.67. Chest x-ray continues to show evidence of diffuse pulmonary congestion which looks slightly improved to my view from yesterday. His limited echocardiogram yesterday demonstrates, I think, subtle improvement in his posterolateral wall motion. I would estimate the ejection fraction of around 30% or 30% to 35%, though there appears to be evidence of 3+ or moderately severe to severe mitral regurgitation likely ischemic related to the posterolateral infarction affecting the posterolateral papillary muscle. IMPRESSION: The patient is making some progress. We will need to continue with high-dose diuretic therapy and beta blockers. I do not know that I would make any changes to his current medications if he is making some progress today. The only addition I might do is to add hydralazine for afterload reduction for his mitral regurgitation and left ventricular dysfunction as long as his blood pressure tolerates it adequately. When his renal function stabilizes, then it would be reasonable to change back to either an angiotensin-converting enzyme inhibitor or angiotensin receptor maxwell medication. Ultimately, this patient may need to be considered for internal cardioverter-defibrillator therapy. If his mitral regurgitation remains severe and symptomatic, then consideration may need to be given to referral to the [facility] for the mitral clip procedure. I think tincture of time will tell how he does clinically, and I am encouraged to see him looking better today. I will plan to see him briefly tomorrow morning and then will ask my partner to follow up with his care over the weekend and next week.
--- NOTE | 2016-08-29 14:40 | NUR ---
NUTRITION ASSESSMENT: ASSESS: Pt is a 76yo M admitted for SOB and weakness. Cardiology is following and pt is s/p stent placement. He is on a Heart Healthy diet with poor appetite. Pt is only eating bites. He stated that he doesn't like the hospital food much. Pt's family has brought in some food (pistachios and applesauce). Encouraged to bring in food that pt likes as long as it is heart healthy. Pt was willing to try Glucerna to help supplement meals. PMHX: T2DM, HTN, ADELA, PVD, CAD LABS: Reviewed. Na 127, Cl 82, Bun 64, Loans Consultant 1.67, Glu 167, Ca 8.2, AST 55, Alb 3.0 MEDS: Reviewed. Lasix, MVI, Vit D GI: 0 BM SKIN: Jimbo 13 CURRENT WTS: 95.6kg, BMI 31.1kg/m2, admit wt 94.6kg, IBW 72.7kg DIET: Heart Healthy, PO bites EST. NEEDS: BMI, SUBHA Kcals: 1915-2105kcal/day (20-22kcal/kg) Pro: 75-85g/day (1.0-1.2g/kg IBW) NUTRITION DIAGNOSIS: 1.) Inadequate oral intake related to decreased appetite as evidence by poor PO intake of only bites. NUTRITION INTERVENTION: 1.) Will send Chocolate Glucerna on L tray per pt preference 2.) Encourage family to bring in heart healthy food pt prefers 3.) Encouraged pt to try to eat ~50% of meals to help him keep his strength up and help with healing. MONITOR / EVAL: PO, wt, GI, labs, POC, nutrition status. Will continue to monitor per moderate nutrition risk guidelines
--- NOTE | 2016-08-29 15:48 | NUR ---
ROSALIND Signed @ 6491 AM
--- NOTE | 2016-08-29 17:14 | NUR ---
Social Work: Continued Discharge Planning D: Pt discussed in am rounds. Pt is not medically stable for discharge and is anticipated to require several more days of hospitalization. PT recommendation is for SNF as pt is not at PLOF and only ambulating 10 feet. SANDING MACHINE TENDER met with pt and family at bedside to discuss discharge options including SNF and Home with HH option. Pt is determined to get home and proceeded to start ankle pumps during SANDING MACHINE TENDER assessment. Family provided with SNF AND HH CHOICE LISTS along with [email or web address] website. Pt and family asked to review discharge options specifically SNF option and determine their preferences if they proceed with this plan. Family appreciative and confirms that they understand they need to require SANDING MACHINE TENDER with at least two preferences ideally by days end tomorrow to allow for enough time for facility review. PPW on chart PASSR in folder. A: Pt who is I at baseline but requiring 1-2 PA for sit to stand. ambulating 10 feet. P: Anticipate pt to discharge to SNF versus home with HH and 09/12 caregiving; SANDING MACHINE TENDER to follow up with pt and family tomorrow regarding plan for discharge. RICKEY Hernandez
--- NOTE | 2016-08-29 17:21 | PCM.PNMED ---
Subjective Date of Service Aug 29, 2016 Subjective Overnight: Maintained use of oxygen mask throughout the night with good saturations. When placed on nasal cannula for meals he desaturated to 87%. Otherwise no events reported Today: Patient awake and alert sitting up in hospital bed with oxygen mask in place. Appropriately active and able to answer questions. Overall he states he feels better though is tired. Multiple family members present at bedside. He denies chest pain, difficulty breathing, shortness of breath, headache, nausea vomiting or visual disturbances. Wishes to maintain Beckett catheterization placement secondary to convenience. Exam Vital Signs Vital Sign - Last Date Time Temp Pulse Resp B/P Pulse Ox O2 Delivery O2 Flow Rate FiO2 08/29/16 14:40 97 20 95 OxyMask 10.00 08/29/16 11:45 36.8 101/62 08/27/16 18:23 65 Intake and Output 08/28/16 08/28/16 08/29/16 Cumulative From/Thru 14:59 22:59 06:59 08/25/16 06:10 - 08/29/16 06:15 Intake Total 390 ml 375 ml 3740 ml Output Total 1200 ml 1000 ml 7500 ml Balance -810 ml -625 ml -3760 ml Intake Oral 390 ml 375 ml 2215 ml IV Total 1525 ml Output Urine Total 1200 ml 1000 ml 7500 ml # Bowel Movements 0 Exam General: Awake and sitting up in hospital bed in no apparent distress. Appropriate and interactive. HEENT: Normocephalic, atraumatic. Oxygen mask in place. PERRL Cardiovascular: Tachycardic rate with a regular rhythm. No murmurs appreciated Pulmonary: Upper anterior lobes clear to auscultation. Scar midline sternum area from previous surgery Abdomen: Soft, nontender, nondistended. Extremities: No clubbing, cyanosis, mild lower extremity edema, persistent Skin: Normal temperature, turgor, and texture Neurological: Cranial nerves grossly intact. Psychiatric: Normal mood and affect. Alert and oriented to person place and time IVs and Medications Medications Reviewed: Medications were reviewed in detail Lab and Diagnostics Result Diagram: 08/29/16 0323 08/29/16 0323 Microbiology Urine culture no growth Blood culture no growth 2 days MRSA screen negative X-Rays, CTs and MRIs CT ANGIO CHEST PULMONARY EMBOLISM IMPRESSION: No evidence of pulmonary embolism. Small bilateral pleural effusions with adjacent atelectasis. Rounded focus of low attenuation seen within the left fissure likely loculated fluid (i.e. pseudotumor). Recommend continued followup with PA and lateral chest radiographs to document resolution after treatment. Scattered groundglass opacities and mild interlobular septal thickening suggesting pulmonary edema. Please correlate clinically. Cardiomegaly and reflux of contrast into the IVC and hepatic veins, which suggests decreased cardiac output. Dictated and approved by: Darin Fonseca M.D. on 08/25/2016 at 8:06 X-RAY CHEST ONE VIEW, PORTABLE IMPRESSION: Patchy bibasilar consolidation, and focal opacity in the left midlung. This is better characterized on comparison CTA chest dated same day. Please see report. Dictated and approved by: Darin Fonseca M.D. on 08/25/2016 at 9:05 X-RAY CHEST ONE VIEW, PORTABLE IMPRESSION: Worsening pulmonary edema and/or diffuse bilateral pneumonia. Dictated by: Satish HURTADO Interpreted: Guerda Dueñas MD on 08/27/2016 at 10: 32 X-RAY CHEST ONE VIEW, PORTABLE IMPRESSION: No significant change in pulmonary edema and/or diffuse bilateral pneumonia. Dictated by: Satish HURTADO Interpreted: Virgen Yee MD on 08/28/2016 at 8: 57 X-RAY CHEST ONE VIEW, PORTABLE IMPRESSION: No significant change from prior examination suggesting pulmonary edema and/or diffuse bilateral pneumonia. Dictated by: Satish HURTADO Interpreted: Guerda Dueñas MD on 08/29/2016 at 10:03 Cardiac Echo Impressions . Echocardiogram Report Interpretation Summary: 1) Mild concentric left ventricular hypertophy with mild dilatation and severely reduced systolic function (EF 20-25%). 2) Mildly dilated right ventricle with moderately reduced function. 3) Anterolateral wall is severely hypokinetic and the entire apex is akinetic. Rest of the umanzor are mildly hypokinetic. 4) Age related calcification of the aortic and mitral valves present but no significant stenosis or regurgitation present. 5) Pulmonary hypertension present, estimated systolic pulmonary pressure of 62mmHg. 6) Compared to the Echo done 08/06/2012, LV function has decreased significantly from 55-60% to 2025% on today's study. Findings consistent with ischemic cardiomyopathy. Echocardiogram Report Interpretation Summary Assessment & Plan Patient is a 76-year-old male with hypertension, type 2 diabetes mellitus, ADELA, hyperlipidemia, and CAD s/p CABG and stent placement presenting with shortness of breath and generalized weakness. Hospital day 5. 1. acute on chronic congestive heart failure due to NSTEMI. Present on admission. Improving -Elevated Pro-BNP 5206. Imaging with evidence of pulmonary edema and cardiomegaly -Possibly secondary to ischemia given ST-depressions on EKG - Cardiology consult, the recommendations are appreciated -Echocardiogram showed EF 20-25%. Hypokinesis and anterior lateral wall, akinesis in the cardiac apex. Pulmonary hypertension. LV function is significantly decreased from prior echo 2012 -Repeat ECHO post catheterization procedure continues to show a reduced systolic function though EF is now reported to be 25-30%, otherwise no significant change. -Cardiology consult. Recommendations per cardiology appreciated -Per cardiology will continue Lasix 80mg IV TID. -Urine output approximately 1 L 24 hours -Per cardiology Metoprolol succinate 50 mg twice a day -CXR continues to show pulmonary edema, though improved -Cardiology considering addition of hydralazine -Continue to monitor 2. NSTEMI, acute. Present on admission. Improved -EKG with ST-depressions of anteroseptal leads -Cardiac catheterization with stent placement to circumflex -Telemetry -Morphine and SL nitroglycerin PRN -Aspirin -Plavix -Rosuvastatin 20 mg daily 3. Acute hypoxemic respiratory failure. Present on admission. Resolved -Suspect secondary to above -Weaned off BiPAP, currently saturating well with oxy mask 4. Dyspnea, acute. Present on admission ongoing -Suspect secondary to #1. Chest CT angio without evidence of PE -Infectious etiology seems less likely, procalcitonin slightly elevated 0.32 and clinically without fever, chills, cough though does have leucocytosis -Continue with supplemental oxygen 5. Leukocytosis. Present on admission. Ongoing -White count yuki from 12 1 admit to a peak of 19, today 18. -Was likely secondary to stress response, infectious etiology also on differential -Continue to monitor daily CXR, Procal, WBC 6. Lactic acidosis, acute. Present on admission. Resolved -Likely secondary to hypoxemia and heart failure -Trended down from 2.7 on admit to 1.3 today -Continue to monitor 7. Acute kidney injury. Present on admission. Active -Most likely secondary to IV contrast for initial PE imaging study -Trended down than elevated once again status post cardiac catheterization -Monitor with CMP -Hold fluids secondary to #1 8. Possible urinary tract infection. Present on admission. Active - Urine showed 6-10 WBCs, no leukocyte esterase, negative nitrate. -Urine culture negative to date -Ceftriaxone DC -patient continues to have leukocytosis wbc 14 though trending down,possibly due to stress,will monitor for now -will consider removing beckett once high dose diuretics is tapered 9. Hyponatremia, acute. Present on admission. Active -Likely secondary to CHF -Treatment as in #1 10. Hyperkalemia, acute. Present on admission. Resolved -Likely secondary to SUBHA remains elevated -Albuterol, Kayexalate -Continue to monitor 11. Coronary artery disease s/p CABG and stent, chronic. Present on admission -Aspirin, Plavix, statin as in #1 12. Type 2 diabetes mellitus, chronic. Present on admission. Stable -Hold home Januvia -Bedside blood glucose checks -Low dose Lispro correction 13. Hypertension, chronic. Present on admission -Hold lisinopril secondary to SUBHA and hyperkalemia 14. Dyslipidemia, chronic. Present on admission -Continue home dose rosuvastatin 20mg daily 15. ADELA, chronic. Present on admission -Uses CPAP at home 16. Obesity, chronic. BMI 30 17. Anxiety. Present on admission. Ongoing - Restart home diazepam 5 mg 3 times a day Disposition: Patient remain inpatient status in [facility], anticipate at least 2-3 more days and hospital for close monitoring. VTE Prophylaxis: Sub-Q Heparin (Unfractionated) VTE Mechanical Devices: Intermittant Pneumatic CD Resuscitation Status: CPR: Attempt Resuscitation Attending Statement The patient was seen and examined independently on 08/29/2016 and case discussed with Dr. Arana . I agree with the history, exam and plan as outlined in the note above. ROMAIN ARANA DO Aug 29, 2016 17:21 Adrian Shelby MD Aug 29, 2016 18:08 15. Anxiety. Present on admission. Ongoing - Restart home diazepam 5 mg 3 times a day Disposition: Patient remain inpatient status in [facility], anticipate at least 2-3 more days and hospital for close monitoring. VTE Prophylaxis: Sub-Q Heparin (Unfractionated) VTE Mechanical Devices: Intermittant Pneumatic CD Resuscitation Status: CPR: Attempt Resuscitation ROMAIN ARANA DO Aug 29, 2016 17:21
[2016-08-30] VITALS (9 sets, daily range): BP systolic 84–109; BP diastolic 57–64; PULSE 96–105; RESP 14–23; O2SAT 93–98
[2016-08-30] MEDS: Nitroglycerin 2% 1 Gm Ointment TOPICAL SCH ×2 (01:35→21:30)
[2016-08-30 03:42] LABS: BASOPHILS % (AUTO) 0.1 % (0-3); EOSINOPHILS % (AUTO) 0.6 % (0-5); Mean Corpuscular Hemoglobin 28.8 pg (27.0-35.0); Mean Corpuscular Volume 89.3 fL (81-100); NEUTROPHILS % (AUTO) 68.6 % (40-74); Platelet Count 406 bil/L (150-400)
[2016-08-30 04:12] LABS: Magnesium 2.5 mg/dL (1.6-2.6)
[2016-08-30] MEDS: Heparin 5,000 Unit/mL Inj SUBQ SCH ×3 (05:40→21:29)
--- NOTE | 2016-08-30 06:06 | NUR ---
BP/Pain/Resp Pt's SBP mostly in 90's throughout night, MD called and order received to hold HS Lasix and Metoprolol. Pt reports intermittent R knee pain from recent surgery, medicated with Oxycodone x2, effective. Pt on 10L O2 per oxymask with sats in mid to high 90's , desats into mid 80's on RA while drinking water or taking pills. Pt instructed in use of flutter valve, voices understanding.
[2016-08-30] MEDS: Insulin LISPRO 300 Unit/3 mL Inj SUBQ SCH ×4 (08:19→21:30)
[2016-08-30] MEDS: Sodium Chloride LOK Flush 10 mL Syringe IVFLUSH SCH ×2 (08:21→17:28)
[2016-08-30] MEDS: Polyethylene Glycol (PEG) 17 Gm Powder PO SCH (08:22)
[2016-08-30] MEDS: Furosemide 10 mg/mL 10 mL Inj IVPUSH SCH ×3 (08:30→21:29)
--- NOTE | 2016-08-30 09:17 | DRSVH ---
PROCEDURE: X-RAY CHEST ONE VIEW, PORTABLE ([id number]) INDICATIONS: Pulm edema TECHNIQUE: One view of the chest was acquired. COMPARISON: [facility], CR, XR CHEST 1VW (PORTABLE), 08/29/2016, 5:23. [facility], CR, XR CHEST 1VW (PORTABLE), 08/28/2016, 5:18. [facility], CT, CT ANGIO CHEST PE, 08/25/2016, 7:31. FINDINGS: Surgical changes and devices: Median sternotomy wires redemonstrated. Lungs and pleura: Diffuse, widespread bilateral pulmonary interstitial and air space opacities are p resent similar to prior examination. Small pleural effusions present, increasing on the left and loc ulated left pleural effusion cannot be excluded nor developing empyema. Recommend clinical correlati on. Mediastinum: Mediastinal contours appear normal. Heart size is normal. Bones and chest wall: No suspicious bony lesions. Overlying soft tissues appear unremarkable. IMPRESSION: 1. Diffuse pulmonary edema and/or bilateral pneumonia similar prior examination. 2. Bilateral pleural effusions, left greater than right and loculated of the left effusion and/or dev eloping empyema cannot be excluded. If indicated CT could be performed for further assessment. Dictated by: Satish HURTADO Interpreted: Virgen Yee MD on 08/30/2016 at 9:03 Transcribed by: ABBY on 08/30/2016 at 9:17 Approved by: Virgen Yee M.D. on 08/30/2016 at 15:47
--- NOTE | 2016-08-30 11:03 | PROG NOTE ---
[address] [address] PROGRESS NOTE PATIENT: NISHI BOSWELL : 1940 MR#: [id number] ADMIT: 08/25/2016 JOB ID: [id number] DATE: 08/30/2016 SUBJECTIVE: The patient looks to be making some very slow but gradual progress. I am encouraged to see his heart rate improve to the 90s generally. His blood pressure is a little low this morning but generally has been ranging in the 90-110 range. He continues to diurese and put out about 1700 cc yesterday and is voiding about 100 cc/hour. He is sitting up eating breakfast with a big glass of water in front of him, and it is apparent today that he has not been fluid restricted despite his significant hyponatremia. I instructed him not to drink any water. He can drink calories such as his Ensure, but I have suggested that he completely restrict water intake for the time being until his sodium improved. PHYSICAL EXAMINATION: Today is not otherwise significantly changed. He is moderately pale. His jugular venous pulse is visible just above the clavicle at about 75 degrees. He has a soft apical murmur of mitral regurgitation and a soft ventricular gallop noted at the apex. Distal extremities are warm and appear well perfused and his right knee seems to be healing well. LABORATORY: Notable for stable hemoglobin at 9.2. His sodium is 126 and his BUN has climbed some into the 70s and his creatinine is up slightly at 1.84, but it has vacillated between 2.0 and 1.67, so I think we will just continue to trend that. DISCUSSION: I have reduced his metoprolol to 25 mg twice daily and cut back on his topical nitrates and started him on hydralazine at 25 mg t.i.d. for afterload reduction therapy. I would continue with his intravenous diuretics. He still is quite congested from a pulmonary standpoint, and his central venous pressure remains high. Over the weekend, I suspect that his intravenous diuretic dose can be gradually reduced if he continues to diurese and make progress. He is going to need significant rehab given his generalized weakness. Dr. Jimenez will take over his care later today and tomorrow and over the weekend.
[2016-08-30] MEDS ORDERED: MeTOProlol XL 25 mg ER24 Tablet PO ONE (12:00)
[2016-08-30] MEDS: MeTOProlol XL 25 mg ER24 Tablet PO SCH ×2 (14:02→21:29)
--- NOTE | 2016-08-30 14:46 | NUR ---
Social Work: Continued Discharge Planning D: EMR reviewed. Pt is on day 5 of hospitalization for SOB, Hyperkalemia per H&P. SW received message from pt's son regarding SNF choice. Son informed SW that first SNF choice is [facility]. SW spoke with Allison, mihaela at [facility], who is agreeable to reviewing pt. SW faxed facesheet and made referral to [facility]. PT continues to recommend SNF as pt is ambulating less than 10 feet. PPW on chart PASSR in folder. A: Pt who is I at baseline but requiring 1-2 PA for sit to stand. ambulating 10 feet. P: Referral made to [facility] per family's choice. Anticipate pt to discharge to SNF versus home with HH and 09/12 caregiving. KYLE will continue to follow RICKEY Arango
--- NOTE | 2016-08-30 15:10 | PCM.PNMED ---
Subjective Date of Service Aug 30, 2016 Subjective Overnight: Systolic blood pressures remained in the 90s throughout most of the night, Lasix and metoprolol. Knee pain managed with oxycodone 2, remained saturated in the mid 90s with 10 L O2 via Oxymask mask. Today: Patient awake and alert laying in hospital bed at approximately 30 angle with ox mask in place. He is far more somnolent today then yesterday or really any other time I have seen him. He is able to answer questions though seems confused and struggles to find correct word itch while relating the story regarding physical therapy. He is not state that he is in any pain. Exam Vital Signs Vital Sign - Last Date Time Temp Pulse Resp B/P Pulse Ox O2 Delivery O2 Flow Rate FiO2 08/30/16 11:42 37.0 102 18 93/64 95 OxyMask 10.00 08/27/16 18:23 65 Intake and Output 08/29/16 08/29/16 08/30/16 Cumulative From/Thru 15:00 23:00 07:00 08/25/16 06:10 - 08/30/16 06:22 Intake Total 350 ml 437 ml 4527 ml Output Total 1425 ml 500 ml 9425 ml Balance -1075 ml -63 ml -4898 ml Intake Oral 350 ml 437 ml 3002 ml IV Total 1525 ml Output Urine Total 1425 ml 500 ml 9425 ml # Bowel Movements 0 Lab and Diagnostics Result Diagram: 08/30/16 0320 08/30/16 0320 Microbiology Urine culture no growth Blood culture no growth 2 days MRSA screen negative X-Rays, CTs and MRIs CT ANGIO CHEST PULMONARY EMBOLISM IMPRESSION: No evidence of pulmonary embolism. Small bilateral pleural effusions with adjacent atelectasis. Rounded focus of low attenuation seen within the left fissure likely loculated fluid (i.e. pseudotumor). Recommend continued followup with PA and lateral chest radiographs to document resolution after treatment. Scattered groundglass opacities and mild interlobular septal thickening suggesting pulmonary edema. Please correlate clinically. Cardiomegaly and reflux of contrast into the IVC and hepatic veins, which suggests decreased cardiac output. Dictated and approved by: Darin Fonseca M.D. on 08/25/2016 at 8:06 X-RAY CHEST ONE VIEW, PORTABLE IMPRESSION: Patchy bibasilar consolidation, and focal opacity in the left midlung. This is better characterized on comparison CTA chest dated same day. Please see report. Dictated and approved by: Darin Fonseca M.D. on 08/25/2016 at 9:05 X-RAY CHEST ONE VIEW, PORTABLE IMPRESSION: Worsening pulmonary edema and/or diffuse bilateral pneumonia. Dictated by: Satish HURTADO Interpreted: Guerda Dueñas MD on 08/27/2016 at 10: 32 X-RAY CHEST ONE VIEW, PORTABLE IMPRESSION: No significant change in pulmonary edema and/or diffuse bilateral pneumonia. Dictated by: Satish HURTADO Interpreted: Virgen Yee MD on 08/28/2016 at 8: 57 X-RAY CHEST ONE VIEW, PORTABLE IMPRESSION: No significant change from prior examination suggesting pulmonary edema and/or diffuse bilateral pneumonia. Dictated by: Satish HURTADO Interpreted: Guerda Dueñas MD on 08/29/2016 at 10:03 Cardiac Echo Impressions . Echocardiogram Report Interpretation Summary: 1) Mild concentric left ventricular hypertophy with mild dilatation and severely reduced systolic function (EF 20-25%). 2) Mildly dilated right ventricle with moderately reduced function. 3) Anterolateral wall is severely hypokinetic and the entire apex is akinetic. Rest of the umanzor are mildly hypokinetic. 4) Age related calcification of the aortic and mitral valves present but no significant stenosis or regurgitation present. 5) Pulmonary hypertension present, estimated systolic pulmonary pressure of 62mmHg. 6) Compared to the Echo done 08/06/2012, LV function has decreased significantly from 55-60% to 2025% on today's study. Findings consistent with ischemic cardiomyopathy. Echocardiogram Report Interpretation Summary Assessment & Plan Patient is a 76-year-old male with hypertension, type 2 diabetes mellitus, ADELA, hyperlipidemia, and CAD s/p CABG and stent placement presenting with shortness of breath and generalized weakness. Hospital day 6. 1. Acute on chronic congestive heart failure due to NSTEMI. Present on admission. Improving -Elevated Pro-BNP 5206. Imaging with evidence of pulmonary edema and cardiomegaly -Possibly secondary to ischemia given ST-depressions on EKG -Cardiology consult, the recommendations are appreciated -Echocardiogram showed EF 20-25%. Hypokinesis and anterior lateral wall, akinesis in the cardiac apex. Pulmonary hypertension. LV function is significantly decreased from prior echo 2012 -Repeat ECHO post catheterization procedure continues to show a reduced systolic function though EF is now reported to be 25-30%, otherwise no significant change. -Cardiology consult. Recommendations per cardiology appreciated -Lasix held 80mg IV TID secondary to hypotension -Urine output is still about 2.5 L last 24 hours hours -Metoprolol succinate reduced from 50 mg twice a day to 25mg BID -CXR continues to show pulmonary edema, though improved -Cardiology considering addition of hydralazine when BP allows -Continue to monitor 2. NSTEMI, acute. Present on admission. Improved -EKG with ST-depressions of anteroseptal leads -Cardiac catheterization with stent placement to circumflex -Telemetry -Morphine and SL nitroglycerin PRN -Aspirin -Plavix -Rosuvastatin 20 mg daily 3. Acute hypoxemic respiratory failure. Present on admission. Resolved -Suspect secondary to above -Weaned off BiPAP, currently saturating well with oxy mask 4. Dyspnea, acute. Present on admission ongoing -Suspect secondary to #1. Chest CT angio without evidence of PE -Infectious etiology seems less likely, procalcitonin slightly elevated 0.32 and clinically without fever, chills, cough though does have leucocytosis -Continue with supplemental oxygen 5. Leukocytosis. Present on admission. Ongoing -White count yuki from 12.1 admit to a peak of 19, currently trending down -Was likely secondary to stress response, infectious etiology also on differential -Continue to monitor daily CXR, Procal, WBC 6. Lactic acidosis, acute. Present on admission. Resolved -Likely secondary to hypoxemia and heart failure -Trended down from 2.7 on admit to 1.3 -Continue to monitor 7. Acute kidney injury. Present on admission. Active -Most likely secondary to IV contrast for initial PE imaging study -Trended down than elevated once again status post cardiac catheterization -Monitor with CMP -Hold fluids secondary to #1 8. Possible urinary tract infection. Present on admission. Active - Urine showed 6-10 WBCs, no leukocyte esterase, negative nitrate - Urine culture negative to date - Ceftriaxone DC - Patient continues to have leukocytosis wbc 14 though trending down,possibly due to stress,will monitor for now - Will consider removing beckett once high dose diuretics is tapered 9. Hyponatremia, acute. Present on admission. Ongoing -Likely secondary to CHF -Treatment as in #1 10. Hyperkalemia, acute. Present on admission. Resolved -Likely secondary to SUBHA remains elevated -Albuterol, Kayexalate -Continue to monitor 11. Coronary artery disease s/p CABG and stent, chronic. Present on admission -Aspirin, Plavix, statin as in #1 12. Type 2 diabetes mellitus, chronic. Present on admission. Stable -Hold home Januvia -Bedside blood glucose checks -Low dose Lispro correction 13. Hypertension, chronic. Present on admission -Hold lisinopril secondary to SUBHA and hyperkalemia 14. Dyslipidemia, chronic. Present on admission -Continue home dose rosuvastatin 20mg daily 15. ADELA, chronic. Present on admission -Uses CPAP at home 16. Obesity, chronic. BMI 30 17. Anxiety. Present on admission. Ongoing - Restart home diazepam 5 mg 3 times a day Disposition: Patient remain inpatient status in [facility], anticipate at least 2-3 more days and hospital for close monitoring. VTE Prophylaxis: Sub-Q Heparin (Unfractionated) VTE Mechanical Devices: Intermittant Pneumatic CD Resuscitation Status: CPR: Attempt Resuscitation Attending Statement The patient was seen and examined together with Dr. Arana on 08/30/16 and I agree with the history, exam and plan as outlined in the note above. ROMAIN ARANA DO Aug 30, 2016 14:33 Adrian Shelby MD Aug 30, 2016 16:10
--- NOTE | 2016-08-30 16:22 | NUR ---
Held Medications Pt BP continues to range in mid 90's systolically. MD aware and gave orders to hold pt's lasix and nitroglycerin. Metoprolol dose was changed to 25mg PO daily, and is to be held for BP under 90/50. Pt has been instructed to drink fluids to help increase BP.
[2016-08-30] MEDS ORDERED: Furosemide 10 mg/mL 10 mL Inj IVPUSH SCH (20:30)
[2016-08-30] MEDS ORDERED: MeTOProlol XL 50 mg ER24 Tablet PO SCH (20:30)
[2016-08-31] VITALS (9 sets, daily range): BP systolic 96–109; BP diastolic 52–67; PULSE 86–102; RESP 14–21; O2SAT 91–98
[2016-08-31] MEDS: Sodium Chloride LOK Flush 10 mL Syringe IVFLUSH SCH ×4 (00:30→23:55)
[2016-08-31 03:26] LABS: BASOPHILS % (AUTO) 0.1 % (0-3); EOSINOPHILS % (AUTO) 0.4 % (0-5); MONOCYTES % (AUTO) 13.7 % (4-12); Mean Corpuscular Hemoglobin 28.6 pg (27.0-35.0); Mean Corpuscular Volume 89.9 fL (81-100); NEUTROPHILS % (AUTO) 73.9 % (40-74); Platelet Count 402 bil/L (150-400)
--- NOTE | 2016-08-31 06:32 | NUR ---
Medications/Pain Held Pt PM dose of Hydralazine, Metoprolol and Nitro paste as pt BP was 90's systolically. Administered 80mg of IVP Lasix's and Pt BP tolerated this. Pt BP steadily increased during the night with pressures systolically in the low to mid 100's. Pt complained of pain in his right knee x1 this shift 12/26. Administered 5mg oxycodone and effective. VSS and Tele SR 90's.
[2016-08-31] MEDS: Heparin 5,000 Unit/mL Inj SUBQ SCH ×3 (06:39→20:59)
[2016-08-31] MEDS: Nitroglycerin 2% 1 Gm Ointment TOPICAL SCH ×2 (08:30→19:06)
[2016-08-31] MEDS: Furosemide 10 mg/mL 10 mL Inj IVPUSH SCH (08:30)
[2016-08-31] MEDS: Polyethylene Glycol (PEG) 17 Gm Powder PO SCH ×2 (08:30→10:58)
--- NOTE | 2016-08-31 08:32 | DRSVH ---
PROCEDURE: X-RAY CHEST ONE VIEW, PORTABLE ([id number]) INDICATIONS: Monitor poss pneumonia/effusion TECHNIQUE: One view of the chest was acquired. COMPARISON: [facility], CR, XR CHEST 1VW (PORTABLE), 08/30/2016, 5:31. FINDINGS: Surgical changes and devices: Patient is status post median sternotomy. Lungs and pleura: There are bilateral pleural effusions and patchy pulmonary opacities similar in ext ent to the study dated 08/30/16. Mediastinum: Mediastinal contours appear normal. Heart size is normal. Bones and chest wall: No suspicious bony lesions. Overlying soft tissues appear unremarkable. IMPRESSION: Bilateral pleural effusions and pulmonary radiopacities, overall unchanged when compared with yesterday's study. Dictated by: Guerda Dueñas M.D. on 08/31/2016 at 8:29 Approved by: Guerda Dueñas M.D. on 08/31/2016 at 8:30
[2016-08-31] MEDS: Insulin LISPRO 300 Unit/3 mL Inj SUBQ SCH ×4 (10:41→21:09)
[2016-08-31] MEDS: MeTOProlol XL 25 mg ER24 Tablet PO SCH ×2 (10:44→20:30)
--- NOTE | 2016-08-31 11:20 | NUR ---
Social Work: Continued Discharge Planning D: EMR reviewed. Pt is on day 6 of hospitalization for SOB, Hyperkalemia per H&P. [facility] has accepted pt with MD Farnsworth to follow. SW called pt's Eneida Morgan to update her regarding pt's discharge plan. Pt's agreeable to plan. SW will continue to follow. PPW on chart PASSR in folder. A: Pt who is I at baseline but requiring 1-2 PA for sit to stand, ambulating 10 feet. Pt who will benefit from SNF P: Pt accepted at [facility] with MD Farnsworth to follow. SW will continue to follow. Kayy Jordan DOUGHNUT MAKER
[2016-08-31] MEDS ORDERED: Lactulose 20 Gm/30 mL 30 mL Syrup PO ONE (11:25)
--- NOTE | 2016-08-31 11:51 | NUR ---
ROSALIND signed by pt's . Kayy Jordan SULFURIC ACID PLANT OPERATOR
[2016-08-31] MEDS ORDERED: Darbepoetin Alfa 60 mCg/0.3 mL Inj SUBQ ONE (12:05)
--- NOTE | 2016-08-31 13:16 | DRSVH ---
PROCEDURE: US RENAL SONOGRAM INDICATIONS: SUBHA and screen for ascites TECHNIQUE: Real-time scanning was performed of the kidneys and bladder, with image documentation. COMPARISON: None. FINDINGS: Kidneys: Kidneys are normal in size. Right kidney measures 12.5 cm long; left kidney measures 1.7 c m long. Right renal cortical thickness is 12.5 cm; left renal cortical thickness is 1.5 cm. Renal c ortical echotexture is normal. No hydronephrosis or nephrolithiasis. No suspicious solid mass lesio ns. Bladder: The bladder is decompressed and a De Anda catheter is present. Miscellaneous: No free fluid within all 4 quadrants. IMPRESSION: 1. No hydronephrosis. 2. No ascites. Dictated by: Guerda Dueñas M.D. on 08/31/2016 at 13:13 Approved by: Guerda Dueñas M.D. on 08/31/2016 at 13:14
--- NOTE | 2016-08-31 13:53 | PCM.PNCARD ---
Subjective Date of service Aug 31, 2016 Subjective: The patient does not communicate much, states that he is fine, does not have difficulty breathing and does not have chest discomfort. He has been eating a little; he has De Anda; has not had bowel movement since admission. Exam Vital Signs Vital Sign - Last Date Time Temp Pulse Resp B/P Pulse Ox O2 Delivery O2 Flow Rate FiO2 08/31/16 12:41 36.6 90 15 102/58 98 OxyMask 11.00 08/27/16 18:23 65 Intake and Output 08/30/16 08/30/16 08/31/16 Cumulative From/Thru 15:00 23:00 07:00 08/25/16 06:10 - 08/31/16 06:16 Intake Total 1142 ml 160 ml 5829 ml Output Total 300 ml 350 ml 68505 ml Balance 842 ml -190 ml -4246 ml Intake Oral 600 ml 160 ml 3762 ml IV Total 542 ml 2067 ml Output Urine Total 300 ml 350 ml 77254 ml # Bowel Movements 0 Additional Information: General: No acute distress ENT: sclera anicteric Neck: no thyromegaly; neck is a little stiff because he has hx of spinal fusion in the past Pulmo: decreased breathing sounds bilaterally, bilateral scattered crackles. Cardio: RRR, normal S1 and S2 no murmur appreciates; JVP 8 cm at 45 degree Abdomen: slightly distended, nontender with palpation Extremities: No LE edema Neuro: no gross abnormalities Lab and Diagnostics Result Diagram: 08/31/16 0305 08/31/16 0305 12-lead ECG On telemetry: sinus rhythm with HR in 80s-90s; no dysrhythmia Assessment & Plan Assessment This is a 76 gentleman with hx of CAD, s/p CABG x1 (in 1991) and stents placements in the past, DM, ADELA who was admitted on 08/27/2016 with SOB in the setting of acute posterolateral NV complicated with severely decreased left ventricular function, pulmonary edema and pulmonary HTN, was diuresed, has worsening kidney function which is multifactorial. On admission was anemic, hyponatremic, with decreased kidney function and hyperkalemic; hyperkalemia resolved; he is still hyponatremic. # Acute posterolateral NV - s/p BLAS placement to proximal circumflex (08/27/2016) ; Right coronary artery is dominant, in its mid segment it has 20% to 30%, HUDSON to LAD is patent. There is about a 30% stenosis at the site of LAD anastomosis. trops are still trending up likely secondary to worsening kidney function. Currently he is on Plavix, ASA 81 mg, Metoprolol succinate 25 mg BID; # Severe ischemic cardiomyopathy with fluid overload - severely reduced systolic function (EF 25-30%), Mildly dilated right ventricle with moderately reduced function. No significant valvular abnormality, pulmonary hypertension present, estimated systolic pulmonary pressure of 50mmHg. He was diuresed. His kidney function worsened likely from combination of CKD, contrast exposure from CT angio and Cardiac cath and diureses. His diuretics are on hold now. He is still hypervolemic on exam and hypoxic and once kidney function improves a little, he would benefit from slow diuresis. Low doses of Dopamine would be helpful to improve kidney perfusion. # SUBHA - Football Coach Dr. Vance has consulted the patient. The patient was examined together with Embedded Systems Engineer Dr. Jimenez with whom I discussed and coordinated the Assessment and Plan. Problems: Pain Evaluation: Adequate Pain Control VTE Prophylaxis: Sub-Q Heparin (Unfractionated) VTE Mechanical Devices: Intermittant Pneumatic CD Resuscitation Status: CPR: Attempt Resuscitation Attending Statement Please see my dictated note. Red Lawson PA-C Aug 31, 2016 13:47 Hector Jimenez MD Sep 01, 2016 16:20
--- NOTE | 2016-08-31 16:09 | PCM.PNMED ---
Subjective Date of Service Aug 31, 2016 Subjective Overnight: Evening doses of hydralazine, metoprolol, Nitropaste held secondary to hypotension, he was given Lasix. Continues to stay right knee pain requiring pain medication. Vital signs remained stable with telemetry showing sinus rhythm in the 90s. Today: Patient awake and alert laying in hospital bed, arousable to voice with family at bedside. Patient states he feels okay though this is his baseline is and is not often express discomfort. Patient seems very somnolent and sleepy so advised patients family that there should be no more than 2 visitors at any time, encouraging rest and bundling care. Exam Vital Signs Vital Sign - Last Date Time Temp Pulse Resp B/P Pulse Ox O2 Delivery O2 Flow Rate FiO2 08/31/16 12:41 36.6 90 15 102/58 98 OxyMask 11.00 08/27/16 18:23 65 Intake and Output 08/30/16 08/30/16 08/31/16 Cumulative From/Thru 15:00 23:00 07:00 08/25/16 06:10 - 08/31/16 06:16 Intake Total 1142 ml 160 ml 5829 ml Output Total 300 ml 350 ml 30820 ml Balance 842 ml -190 ml -4246 ml Intake Oral 600 ml 160 ml 3762 ml IV Total 542 ml 2067 ml Output Urine Total 300 ml 350 ml 37577 ml # Bowel Movements 0 Exam General: Laying in hospital bed with family at bedside, arousable to voice oximetry mask in place. HEENT: Normocephalic, atraumatic. PERRL. mucous membranes appear dry. Cardiovascular: Tachycardic rate with a regular rhythm. No murmurs appreciated Pulmonary: Upper anterior lobes clear to auscultation. Scar midline sternum area from previous surgery Abdomen: Soft, nontender, nondistended. No appreciable fluid wave : Beckett cath in place. Extremities: No clubbing, cyanosis, mild lower extremity edema, persistent Skin: Normal temperature, turgor, and texture Neurological: Cranial nerves grossly intact. Psychiatric: Somnolent but arousable and conversant. Overall appears quite tired. IVs and Medications Medications Reviewed: Medications were reviewed in detail Lab and Diagnostics Result Diagram: 08/31/16 0305 08/31/16 0305 Microbiology Urine culture no growth Blood culture no growth 2 days MRSA screen negative X-Rays, CTs and MRIs CT ANGIO CHEST PULMONARY EMBOLISM IMPRESSION: No evidence of pulmonary embolism. Small bilateral pleural effusions with adjacent atelectasis. Rounded focus of low attenuation seen within the left fissure likely loculated fluid (i.e. pseudotumor). Recommend continued followup with PA and lateral chest radiographs to document resolution after treatment. Scattered groundglass opacities and mild interlobular septal thickening suggesting pulmonary edema. Please correlate clinically. Cardiomegaly and reflux of contrast into the IVC and hepatic veins, which suggests decreased cardiac output. Dictated and approved by: Darin Fonseca M.D. on 08/25/2016 at 8:06 X-RAY CHEST ONE VIEW, PORTABLE IMPRESSION: Patchy bibasilar consolidation, and focal opacity in the left midlung. This is better characterized on comparison CTA chest dated same day. Please see report. Dictated and approved by: Darin Fonseca M.D. on 08/25/2016 at 9:05 X-RAY CHEST ONE VIEW, PORTABLE IMPRESSION: Worsening pulmonary edema and/or diffuse bilateral pneumonia. Dictated by: Satish HURTADO Interpreted: Guerda Dueñas MD on 08/27/2016 at 10: 32 X-RAY CHEST ONE VIEW, PORTABLE IMPRESSION: No significant change in pulmonary edema and/or diffuse bilateral pneumonia. Dictated by: Satish HURTADO Interpreted: Virgen Yee MD on 08/28/2016 at 8: 57 X-RAY CHEST ONE VIEW, PORTABLE IMPRESSION: No significant change from prior examination suggesting pulmonary edema and/or diffuse bilateral pneumonia. Dictated by: Satish HURTADO Interpreted: Guerda Dueñas MD on 08/29/2016 at 10:03 Cardiac Echo Impressions . Echocardiogram Report Interpretation Summary: 1) Mild concentric left ventricular hypertophy with mild dilatation and severely reduced systolic function (EF 20-25%). 2) Mildly dilated right ventricle with moderately reduced function. 3) Anterolateral wall is severely hypokinetic and the entire apex is akinetic. Rest of the umanzor are mildly hypokinetic. 4) Age related calcification of the aortic and mitral valves present but no significant stenosis or regurgitation present. 5) Pulmonary hypertension present, estimated systolic pulmonary pressure of 62mmHg. 6) Compared to the Echo done 08/06/2012, LV function has decreased significantly from 55-60% to 2025% on today's study. Findings consistent with ischemic cardiomyopathy. Echocardiogram Report Interpretation Summary Additional Diagnostics . US RENAL SONOGRAM IMPRESSION: 1. No hydronephrosis. 2. No ascites. Dictated by: Guerda Dueñas M.D. on 08/31/2016 at 13:13 Assessment & Plan Patient is a 76-year-old male with hypertension, type 2 diabetes mellitus, ADELA, hyperlipidemia, and CAD s/p CABG and stent placement presenting with shortness of breath and generalized weakness. Hospital day 7. 1. Acute on chronic congestive heart failure due to NSTEMI. Present on admission. Improving -Elevated Pro-BNP 5206. Imaging with evidence of pulmonary edema and cardiomegaly -Possibly secondary to ischemia given ST-depressions on EKG -Cardiology consult, the recommendations are appreciated -Echocardiogram showed EF 20-25%. Hypokinesis and anterior lateral wall, akinesis in the cardiac apex. Pulmonary hypertension. LV function is significantly decreased from prior echo 2012 -Repeat ECHO post catheterization procedure continues to show a reduced systolic function though EF is now reported to be 25-30%, otherwise no significant change. -Cardiology consult. Recommendations per cardiology appreciated -Lasix held 80mg IV TID secondary to hypotension and SUBHA.patient seems overdiuresed.will consider putting him on po lasix 40 mg daily when SUBHA resolves -Urine output is still about 2.5 L last 24 hours hours -Metoprolol succinate reduced from 50 mg twice a day to 25mg BID -CXR continues to show pulmonary edema, though improved -Cardiology considering addition of hydralazine when BP allows -Continue to monitor 2. NSTEMI, acute. Present on admission. Improved -EKG with ST-depressions of anteroseptal leads -Cardiac catheterization with stent placement to circumflex -Telemetry -Morphine and SL nitroglycerin PRN -Aspirin -Plavix -Rosuvastatin 20 mg daily 3. Acute hypoxemic respiratory failure. Present on admission. Resolved -Suspect secondary to above -Weaned off BiPAP, currently saturating well with oxy mask 4. Dyspnea, acute. Present on admission ongoing -Suspect secondary to #1. Chest CT angio without evidence of PE -Infectious etiology seems less likely, procalcitonin slightly elevated, trending down and clinically without fever, chills, cough though does have leucocytosis -Continue with supplemental oxygen 5. Leukocytosis. Present on admission. Ongoing -White count yuki from 12.1 admit to a peak of 19, currently trending down -Was likely secondary to stress response, infectious etiology also on differential -Continue to monitor daily CXR, Procal, WBC 6. Lactic acidosis, acute. Present on admission. Resolved -Likely secondary to hypoxemia and heart failure -Trended down from 2.7 on admit to 1.3 -Continue to monitor 7. Acute kidney injury. Present on admission. Active -Most likely secondary to IV contrast for initial PE imaging study and overdiuresis -Trended down than elevated once again status post cardiac catheterization -Monitor with CMP -Hold fluids secondary to #1 8. Possible urinary tract infection. Present on admission. Active - Urine showed 6-10 WBCs, no leukocyte esterase, negative nitrate - Urine culture negative to date - Ceftriaxone DC - Patient continues to have leukocytosis wbc 14 though trending down,possibly due to stress,will monitor for now - Will consider removing beckett once high dose diuretics is tapered 9. Hyponatremia, acute. Present on admission. Ongoing -Likely secondary to CHF -Treatment as in #1 10. Hyperkalemia, acute. Present on admission. Resolved -Likely secondary to SUBHA remains elevated -Albuterol, Kayexalate -Continue to monitor 11. Coronary artery disease s/p CABG and stent, chronic. Present on admission -Aspirin, Plavix, statin as in #1 12. Type 2 diabetes mellitus, chronic. Present on admission. Stable -Hold home Januvia -Bedside blood glucose checks -Low dose Lispro correction 13. Hypertension, chronic. Present on admission -Hold lisinopril secondary to SUBHA and hyperkalemia 14. Dyslipidemia, chronic. Present on admission -Continue home dose rosuvastatin 20mg daily 15. ADELA, chronic. Present on admission -Uses CPAP at home 16. Obesity, chronic. BMI 30 17. Anxiety. Present on admission. Ongoing - Restart home diazepam 5 mg 3 times a day Disposition: Patient remain inpatient status in [facility], anticipate at least 2-3 more days and hospital for close monitoring. VTE Prophylaxis: Sub-Q Heparin (Unfractionated) VTE Mechanical Devices: Intermittant Pneumatic CD Resuscitation Status: CPR: Attempt Resuscitation Attending Statement The patient was seen and examined together with Dr. Arana on 08/31/16 and I agree with the history, exam and plan as outlined in the note above. ROMAIN ARANA DO Aug 31, 2016 16:09 Adrian Shelby MD Aug 31, 2016 21:59
--- NOTE | 2016-08-31 16:28 | NUR ---
Medications/Rest/Bundled care Pt Lasix held today for decreasing kidney function per MD. Other medications held per MD orders include hydralazine and nitroglycerin. Metoprolol to be held with BP < 90/50. Per MD patient's cares are to be bundled to allow for maximum amounts of sleep. Patient's family has been notified that they need to allow him time to rest and he may have no more than 2 visitors at a time.
--- NOTE | 2016-08-31 20:53 | PROG NOTE ---
[address] [address] PROGRESS NOTE PATIENT: NISHI BOSWELL : 1940 MR#: [id number] ADMIT: 08/25/2016 JOB ID: [id number] DATE: 08/31/2016 The patient is discussed and examined with Red Lawson PA-C. I refer the reader to her note for complete details. Briefly, the patient is a very complicated 76-year-old male with a history of bypass grafting, diabetes, and sleep apnea, admitted with progressive dyspnea and pulmonary edema with a documented ejection fraction of 20% to 25% with severe pulmonary hypertension and moderate renal insufficiency. His ECG suggested an acute posterolateral AK and he was taken to the catheterization lab where a proximal left circumflex lesion was documented and stented with a drug-eluting stent. His LVEDP was noted to be markedly elevated at that time at 40 mmHg with a PAP of 66. He had moderately severe mitral regurgitation. Since then, attempts at diuresis have been met with progressive renal insufficiency, likely multifactorial from his multiple dye loads from his coronary angiography as well as his CT angiography. He currently denies any significant dyspnea or chest discomfort although he is not overly communicative. PHYSICAL EXAMINATION: As per Red Lawson's note, briefly, blood pressure has been relatively stable with heart rates in the 90s with sinus rhythm. Lungs show bilateral crackles and JVP is around 7-8 cm. LABORATORY: His hematocrit remains low at 28 but stable. His BUN has progressively increased from 35 on admission now to 88, with a creatinine increasing from a baseline of 1.6 now up to 2.5. Dr. Vance has now been consulted. His sodium is low at 125. IMPRESSION: Severe left ventricular systolic dysfunction, status post subacute posterolateral myocardial infarction, complicated by moderately severe mitral regurgitation and now progressive renal insufficiency. The patient clearly has significant pulmonary congestion and increased filling CVP. After discussion with Dr. Vance, there remains concern that there may be some relative intravascular volume depletion from a renal standpoint, although I suspect much of his acute renal failure is a reflection of his recent multiple dye loads on top of chronic renal insufficiency and diabetes. Yet, I think that all efforts should be made to try to preserve his renal function as this will have a longstanding impact on his prognosis. Dr. Vance has recommended reducing his diuretic given his brisk diuresis over the last several days, and I think this is reasonable in hopes of improving his renal function. I would also recommend consideration of low-dose dopamine to stimulate renal flow. I would avoid any further afterload reduction given his elevated right-sided pressures, which can reduce his glomerular filtration gradient. At this point, I would simply continue with his current therapy with reducing his diuresis, although this may need to be reassessed if his pulmonary congestion worsens. Ultrafiltration could also be a consideration. His prognosis remains guarded at this point, given his multi-system involvement. 1. Acute on chronic renal failure. As above. 2. Moderately severe mitral regurgitation. Likely ischemic based and hopefully will improve with revascularization. Repeat echocardiography should be considered at some point. 3. Hyperlipidemia. He should be maintained on statin therapy. PLAN: 1. Continue current medications and continue to track electrolytes and renal function. 2. Consider repeat echocardiography in 3-4 days. 3. Consider low-dose dopamine to attempt improved renal perfusion if his renal function continues to deteriorate. I spent a total of 40 minutes reviewing the patient's records, discussing with Red Lawson, examining patient and documenting such. YOJANA
[2016-09-01] VITALS (12 sets, daily range): BP systolic 96–105; BP diastolic 52–59; PULSE 81–89; RESP 13–21; O2SAT 93–98
--- NOTE | 2016-09-01 02:05 | CONS ---
[address] [address] CONSULTATION REPORT PATIENT: NISHI BOSWELL : 1940 MR#: [id number] ADMIT: 08/25/2016 JOB ID: [id number] CORRECTED REPORT: DATE OF SERVICE: 08/31/2016 HISTORY: The patient is a 76-year-old, white male, who was admitted to [facility] for acute shortness of breath. At time of admission, his creatinine was 1.62, and since that time, he has had a progressive increase in both his BUN and creatinine to a level today of 88 and 2.48. Renal consultation is being sought for further evaluation of his renal dysfunction and acute kidney injury. He has a longstanding history of ischemic cardiomyopathy. This is secondary to coronary artery disease. He, prior to admission, had had some progressive increase in difficulty in breathing, cough, wheezing, and some lower extremity edema. Of note, approximately a month ago he underwent a right knee arthroscopy. In the emergency department, he was sent for an emergent CT angio, which was negative. He was subsequently admitted and treated with aggressive diuresis. Over the next several days, he has had a marked increase in his urine output. However, his chest x-ray has remained unchanged. His echocardiogram showed diffuse hypokinesis and an ejection fraction of approximately 25-30%. On August 27, he underwent a coronary angiography, and this was significant for significant coronary artery disease, with placement of several stents in the circumflex. He also was found to have significant elevated pressures in his LV. Following the heart catheterization, he continued to be diuresed. However, no further radiographic procedures were done involving contrast. His blood pressures since admission have been in the upper 90s to low 110s, with only a transient drop into the mid 80s yesterday. Urine output has been consistently ahead of his intake until yesterday. As noted above, he has had a progressive increase in his creatinine since admission. PAST MEDICAL HISTORY: Unfortunately, the patient is quite somnolent and unable to give me any significant history. He does have some type of history of a prostate problem, history of gout, history of diabetes, history of hypertension with hypertensive heart disease and hypertensive nephrosclerosis, obstructive sleep apnea, coronary artery disease, and congestive heart failure as detailed above, obstructive sleep apnea for which he uses CPAP. There is also a history of benign prostatic hypertrophy versus prostate cancer. PAST SURGICAL HISTORY: Significant for a right knee arthroscopy one month ago, cervical laminectomy, carotid stent x3, carpal tunnel release, coronary artery bypass graft and subsequent angioplasty, and a TURP. ALLERGIES: SULFA, ATORVASTATIN, LACTULOSE, and TRAMADOL. REVIEW OF SYSTEMS: Within the last 24 hours, is unobtainable because of the patient's somnolence. From what I have talked with the house staff, he has not had any vomiting, diarrhea, fever, chills, or rashes. He has not received any nonsteroidal since admission. SOCIAL HISTORY: He denies use of alcohol, tobacco, or illicit drugs. FAMILY HISTORY: Noncontributory. REVIEW OF SYSTEMS: Detailed above, otherwise is unobtainable. PHYSICAL EXAMINATION: Revealed a pale, obese, 76-year-old, white male, who was quite somnolent but arousable at time of my evaluation. His blood pressure was 109/59, with a pulse rate of 105. HEENT examination is remarkable for pale sclerae. Neck is supple without adenopathy, thyromegaly. However, he does have some mild JVD at 60 degrees. Lungs showed bibasilar rales and scattered end-expiratory wheezes in all lung macias. Heart was quite distant but appeared to be regular. Abdomen is distended with diffuse tympany and free fluid is noted. The liver is enlarged and pulsatile to palpation. There is also evidence of hepatojugular reflux. Extremities showed evidence of some clubbing and mild cyanosis. There were no half and half nails noted. Skin turgor was slightly diminished and there is no evidence of any rashes. LABORATORY EXAMINATION: This morning, his sodium is 127, potassium 4.5, chloride of 80, bicarbonate 27, BUN and creatinine were 88 and 2.48, respectively. Liver function studies are unremarkable. His albumin is 2.8. His white count this morning is 13.5, hemoglobin of 8.8, hematocrit 27.7, red cell indices, platelet count and differential were unremarkable. On admission, his specific gravity of his urine was 1.020, pH was 5.0. There were greater than 50 RBCs per high-power field, 6-10 WBCs per high-power field. There were scattered hyaline and granular casts noted. IMPRESSION: 1. Acute kidney injury secondary to contrast and over-diuresis. 2. Cardiorenal syndrome. 3. Hypertension with hypertensive heart disease and hypertensive nephrosclerosis. 4. Hyponatremia. 5. Hematuria. 6. Anemia secondary to chronic kidney disease. RECOMMENDATION: 1. I would like to stop all of his IV fluids today and would strongly consider giving him half normal saline at 50 an hour for 1-2 bags. 2. I would like to get an ultrasound of his abdomen to assess his kidneys, also for an assessment of abdominal fluid. If there is a moderate to large amount of ascitic fluid, I would strongly urge consideration of paracentesis. 3. I would like to obtain a serum protein electrophoresis, along with a uric acid level. Continue to closely follow his intake, output, and lab. I would also stop any diuretics for the next 24-48 hours. Once again, I would like to thank you for allowing me to participate in the care of this most pleasant and interesting patient. I will be following him closely with you. Corrected by UCHE 10/21/16 at 9:11am DOS
--- NOTE | 2016-09-01 02:50 | NUR ---
Rest: Pt. sleeping soundly for large majority of shift. Care activities grouped to allow for pt. rest. Pt. refused turning in bed during shift. Pt. requested anxiety medication at HS, PRN Valium administered. Pt. awoke in middle of night, groggy and pulling at gown, tubes and wires. Pt. re-oriented easily, however to several minutes for pt. to fully wake and be able to comprehend simple concepts. Pt. states he is comfortable in bed and continues to rest.
[2016-09-01 03:12] LABS: BASOPHILS % (AUTO) 0.1 % (0-3); EOSINOPHILS % (AUTO) 0.5 % (0-5); MONOCYTES % (AUTO) 12.6 % (4-12); Mean Corpuscular Hemoglobin 28.1 pg (27.0-35.0); Mean Corpuscular Volume 87.5 fL (81-100); NEUTROPHILS % (AUTO) 73.6 % (40-74); Platelet Count 427 bil/L (150-400)
[2016-09-01 03:28] LABS: Unsaturated Iron Binding 207.4 ug/dL
[2016-09-01] MEDS: Heparin 5,000 Unit/mL Inj SUBQ SCH ×3 (05:15→22:23)
[2016-09-01] MEDS: Insulin LISPRO 300 Unit/3 mL Inj SUBQ SCH ×4 (08:00→22:00)
[2016-09-01] MEDS: Nitroglycerin 2% 1 Gm Ointment TOPICAL SCH ×2 (08:30→19:56)
[2016-09-01] MEDS: MeTOProlol XL 25 mg ER24 Tablet PO SCH ×2 (08:30→20:30)
--- NOTE | 2016-09-01 08:57 | NUR ---
Evaluation completed. Please go to "Notes" then click on "Assessments and Notes" (bottom left corner of screen). Then select appropriate discipline tab on top of screen.
[2016-09-01] MEDS: Sodium Chloride LOK Flush 10 mL Syringe IVFLUSH SCH ×3 (09:09→22:26)
[2016-09-01] MEDS: Polyethylene Glycol (PEG) 17 Gm Powder PO SCH (09:10)
--- NOTE | 2016-09-01 09:49 | PROG NOTE ---
[address] [address] PROGRESS NOTE PATIENT: NISHI BOSWELL : 1940 MR#: [id number] ADMIT: 08/25/2016 JOB ID: [id number] DATE: 09/01/2016 SUBJECTIVE: The patient remains somewhat quiet with a flat affect and avoiding eye contact, although answers questions. He denies any dyspnea or orthopnea or any discomfort, but generally with single word answers. He has been perseverating about the whereabouts of his family and apparently was somewhat confused last night. PHYSICAL EXAMINATION: Elderly male who does not appear to be in acute distress. HR 80s. BP 105/58. O2 saturation 93% on nasal cannula. He has had a positive fluid balance of around 1.5 L over the last 2 days and his weight is up 0.8 kg from yesterday. Lungs reduced breath sounds throughout with coarse breath sounds, but no appreciable rales or wheeze. Cardiovascular regular rate and rhythm with distant heart tones with a 1/6 systolic murmur heard at the apex. JVP appears to be 8-9 cm. Abdomen mildly obese, but does not appear to be overly distended. Extremities generally warm, although cool at the feet with trace edema. LABORATORY: Sodium this morning is 122 with a potassium of 5.3 and a BUN of 103 with a creatinine of 3.4, up from 2.5 yesterday and 1.8 the day before. Uric acid is 16.4. LFTs remain normal. Hematocrit this morning is 26.5, essentially unchanged. White count is 13.8. Chest x-ray from yesterday showed significant bilateral pleural effusions and pulmonary opacities consistent with pulmonary congestion. His abdominal ultrasound showed no ascites or hydronephrosis. IMPRESSION: 1. Status post acute posterolateral myocardial infarction complicated by moderately severe mitral regurgitation and now progressive renal insufficiency with severe left ventricular systolic dysfunction. I have personally reviewed the most recent echocardiogram and there clearly is significant mitral regurgitation likely ischemic in origin and hopefully will improve with revascularization. While he is relatively asymptomatic, I think he clearly remains volume overloaded and has progressive renal insufficiency despite a positive fluid balance. I think this points to intrinsic kidney disease with possible acute tubular necrosis from his multiple contrast studies as a cause for his acute renal failure. Given his fairly poor urine output and climbing potassium, I suspect that he may require dialysis in the near future. If he requires intermodal customer service dialysis, this will clearly affect his prognosis given his other comorbidities and at some point a Palliative Care consult may be appropriate. While I would like to see some volume reduction at this point, I do not know that reinitiating aggressive diuresis will improve this and will likely worsen his kidney function, but I will defer further diuretic therapy and possible hemodialysis or ultrafiltration to Dr. Vance. Low-dose dopamine could be considered in an effort to try to stimulate kidney function as well. At this point, I do not see any opportunity for afterload reduction. He should be maintained on antiplatelet therapy because of his stent. I would like to keep him on low-dose metoprolol, but this will need to be reconsidered if his blood pressures remain relatively low. 2. Moderately severe mitral regurgitation. As above. 3. Hyperlipidemia. 4. Acute on chronic renal failure. As above. PLAN: 1. Continue current medications, but consider low-dose dopamine or consideration for hemodialysis or ultrafiltration. I will discuss further with Dr. Vance. 2. Continue to track electrolytes and renal function closely. 3. Consider repeat echocardiography in 3-4 days to reassess the degree of his mitral regurgitation, which may have some prognostic implications. I spent 40 minutes reviewing the patient's medical record, examining and interviewing the patient, and answering his questions and documenting such.
[2016-09-01] MEDS ORDERED: 0.9% Sodium Chloride 250 ML IV ONE (11:10)
[2016-09-01] MEDS: 0.9% Sodium Chloride 1,000 ML IV SCH (11:59)
[2016-09-01] MEDS ORDERED: Iron Sucrose Inj 200 MG in 0.9% Sodium Chloride 100 ML IV ONE (12:00)
--- NOTE | 2016-09-01 12:01 | PCM.PNNEPH ---
Subjective Date of Service Sep 01, 2016 Subjective The patient's renal function has worsened a bit. His blood pressure remains in the upper 80s to low 100s. The patient is more alert today and interactive. He denies any chest pain, shortness of breath, nausea or vomiting. He does not have any conversational dyspnea nor is he using his accessory muscles of respiration. Last 24 hours he has had 1075 in and 650 out with 450 out first 8 hours today. This morning his sodium is 122, potassium 5.3, 76, and bicarbonate 19. His BUN and creatinine were 103 and 3.37. His hemoglobin is 8.5 with 12% saturation of transferrin. His uric acid level is also markedly elevated at 16.4. Renal ultrasound showed normal kidneys without evidence of any hydronephrosis or masses. Echogenicity was also normal. There was no significant ascitic fluid noted. Exam Vital Signs Vital Sign - Last Date Time Temp Pulse Resp B/P Pulse Ox O2 Delivery O2 Flow Rate FiO2 09/01/16 10:34 89 09/01/16 08:53 Supplement Oxygen 09/01/16 08:53 36.4 21 100/59 95 6.00 08/27/16 18:23 65 Intake and Output 08/31/16 08/31/16 09/01/16 Cumulative From/Thru 15:00 23:00 07:00 08/25/16 06:10 - 09/01/16 05:17 Intake Total 806 ml 695 ml 7439 ml Output Total 300 ml 450 ml 29953 ml Balance 506 ml 245 ml -3386 ml Intake Oral 500 ml 120 ml 4382 ml IV Total 306 ml 575 ml 3057 ml Output Urine Total 300 ml 450 ml 34112 ml # Bowel Movements 0 0 Exam Patient is pale. Has noted above he does not have any evidence of any conversational dyspnea. Neck is supple without adenopathy, thyromegaly, or venous distention. There is no use of accessory muscles noted. Pulmonary exam showed some bibasilar rales but otherwise were clear. Heart sounds were distant but regular. Abdomen is distended with diminished bowel sounds noted. There is no tenderness or rebound guarding or masses noted. Extremities show any evidence of any clubbing, cyanosis, or edema. Skin turgor is diminished. Lab and Diagnostics Result Diagram: 09/01/16 0300 09/01/16 0300 Microbiology Urine culture no growth Blood culture no growth 2 days MRSA screen negative X-Rays, CTs and MRIs CT ANGIO CHEST PULMONARY EMBOLISM IMPRESSION: No evidence of pulmonary embolism. Small bilateral pleural effusions with adjacent atelectasis. Rounded focus of low attenuation seen within the left fissure likely loculated fluid (i.e. pseudotumor). Recommend continued followup with PA and lateral chest radiographs to document resolution after treatment. Scattered groundglass opacities and mild interlobular septal thickening suggesting pulmonary edema. Please correlate clinically. Cardiomegaly and reflux of contrast into the IVC and hepatic veins, which suggests decreased cardiac output. Dictated and approved by: Darin Fonseca M.D. on 08/25/2016 at 8:06 X-RAY CHEST ONE VIEW, PORTABLE IMPRESSION: Patchy bibasilar consolidation, and focal opacity in the left midlung. This is better characterized on comparison CTA chest dated same day. Please see report. Dictated and approved by: Darin Fonseca M.D. on 08/25/2016 at 9:05 X-RAY CHEST ONE VIEW, PORTABLE IMPRESSION: Worsening pulmonary edema and/or diffuse bilateral pneumonia. Dictated by: Satish HURTADO Interpreted: Guerda Dueñas MD on 08/27/2016 at 10: 32 X-RAY CHEST ONE VIEW, PORTABLE IMPRESSION: No significant change in pulmonary edema and/or diffuse bilateral pneumonia. Dictated by: Satish HURTADO Interpreted: Virgen Yee MD on 08/28/2016 at 8: 57 X-RAY CHEST ONE VIEW, PORTABLE IMPRESSION: No significant change from prior examination suggesting pulmonary edema and/or diffuse bilateral pneumonia. Dictated by: Satish HURTADO Interpreted: Guerda Dueñas MD on 08/29/2016 at 10:03 Cardiac Echo Impressions . Echocardiogram Report Interpretation Summary: 1) Mild concentric left ventricular hypertophy with mild dilatation and severely reduced systolic function (EF 20-25%). 2) Mildly dilated right ventricle with moderately reduced function. 3) Anterolateral wall is severely hypokinetic and the entire apex is akinetic. Rest of the umanzor are mildly hypokinetic. 4) Age related calcification of the aortic and mitral valves present but no significant stenosis or regurgitation present. 5) Pulmonary hypertension present, estimated systolic pulmonary pressure of 62mmHg. 6) Compared to the Echo done 08/06/2012, LV function has decreased significantly from 55-60% to 2025% on today's study. Findings consistent with ischemic cardiomyopathy. Echocardiogram Report Interpretation Summary Additional Diagnostics . US RENAL SONOGRAM IMPRESSION: 1. No hydronephrosis. 2. No ascites. Dictated by: Guerda Dueñas M.D. on 08/31/2016 at 13:13 Plan Impression Impression #1 acute on chronic kidney injury secondary to contrast and intravascular volume depletion #2 hypertension with hypertensive heart disease and hypertensive nephrosclerosis #3 cardiorenal syndrome number for hyponatremia #5 hematuria #6 anemia secondary to chronic kidney disease and superimposed iron deficiency #7 hyperuricemia Recommendations #1 I still feel that he is intravascularly volume depleted based on my physical examination, hypotension, evidence of tenting of his skin, and lack of peripheral edema. And I would like to continue him on cautious IV fluid hydration #2 would also like to give him a dose of intravenous iron to augment his anemia #3 hours also like to start him on allopurinol 100 mg daily. There is some data which supports the use of far uric acid lowering an acute kidney injury and also attenuating chronic kidney disease. Anil Vance DO Sep 01, 2016 12:01
--- NOTE | 2016-09-01 12:16 | PCM.PNMED ---
Subjective Date of Service Sep 01, 2016 Subjective Patient is a 76-year-old male with hypertension, type 2 diabetes mellitus, ADELA, hyperlipidemia, and CAD s/p CABG and stent placement admitted for shortness of breath and generalized weakness. He underwent cardiac catheterization with subsequent BLAS to proximal circumflex. Hospital day 8 No overnight events. Patient is seen with 9L oxymask this morning. He is without complaints denying chest pain, fever, chills, abdominal pain, nausea, emesis. Exam Vital Signs Vital Sign - Last Date Time Temp Pulse Resp B/P Pulse Ox O2 Delivery O2 Flow Rate FiO2 09/01/16 06:12 86 09/01/16 04:21 105/58 94 OxyMask 8.00 09/01/16 03:01 36.3 13 08/27/16 18:23 65 Intake and Output 08/31/16 08/31/16 09/01/16 Cumulative From/Thru 15:00 23:00 07:00 08/25/16 06:10 - 09/01/16 05:17 Intake Total 806 ml 695 ml 7439 ml Output Total 300 ml 450 ml 95439 ml Balance 506 ml 245 ml -3386 ml Intake Oral 500 ml 120 ml 4382 ml IV Total 306 ml 575 ml 3057 ml Output Urine Total 300 ml 450 ml 11720 ml # Bowel Movements 0 0 Exam General: Ill-appearing, no distress, well-developed, well-nourished HEENT: Normocephalic, atraumatic. External ears without defect. Anicteric sclerae, moist conjunctivae, and no lid lag. Oxymask in place. Cardiovascular: Regular rate and rhythm with no murmurs, rubs, or gallops appreciated Pulmonary: Crackles at the bases bilaterally. Normal respiratory effort with no use of accessory muscles. Abdomen: Bowel tones present. Soft, nontender, nondistended. Extremities: Mild bilateral lower extremity edema. Right knee with healing surgical incision. Neurological: Cranial nerves grossly intact. Psychiatric: Alert and oriented to person, place, and time. IVs and Medications Medications Reviewed: Medications were reviewed in detail Lab and Diagnostics Result Diagram: 09/01/16 0300 09/01/16 0300 Microbiology Urine culture no growth Blood culture no growth 2 days MRSA screen negative X-Rays, CTs and MRIs CT ANGIO CHEST PULMONARY EMBOLISM IMPRESSION: No evidence of pulmonary embolism. Small bilateral pleural effusions with adjacent atelectasis. Rounded focus of low attenuation seen within the left fissure likely loculated fluid (i.e. pseudotumor). Recommend continued followup with PA and lateral chest radiographs to document resolution after treatment. Scattered groundglass opacities and mild interlobular septal thickening suggesting pulmonary edema. Please correlate clinically. Cardiomegaly and reflux of contrast into the IVC and hepatic veins, which suggests decreased cardiac output. Dictated and approved by: Darin Fonseca M.D. on 08/25/2016 at 8:06 X-RAY CHEST ONE VIEW, PORTABLE IMPRESSION: Patchy bibasilar consolidation, and focal opacity in the left midlung. This is better characterized on comparison CTA chest dated same day. Please see report. Dictated and approved by: Darin Fonseca M.D. on 08/25/2016 at 9:05 X-RAY CHEST ONE VIEW, PORTABLE IMPRESSION: Worsening pulmonary edema and/or diffuse bilateral pneumonia. Dictated by: Satish HURTADO Interpreted: Guerda Dueñas MD on 08/27/2016 at 10: 32 X-RAY CHEST ONE VIEW, PORTABLE IMPRESSION: No significant change in pulmonary edema and/or diffuse bilateral pneumonia. Dictated by: Satish HURTADO Interpreted: Virgen Yee MD on 08/28/2016 at 8: 57 X-RAY CHEST ONE VIEW, PORTABLE IMPRESSION: No significant change from prior examination suggesting pulmonary edema and/or diffuse bilateral pneumonia. Dictated by: Satish HURTADO Interpreted: Guerda Dueñas MD on 08/29/2016 at 10:03 Cardiac Echo Impressions . Echocardiogram Report Interpretation Summary: 1) Mild concentric left ventricular hypertophy with mild dilatation and severely reduced systolic function (EF 20-25%). 2) Mildly dilated right ventricle with moderately reduced function. 3) Anterolateral wall is severely hypokinetic and the entire apex is akinetic. Rest of the umanzor are mildly hypokinetic. 4) Age related calcification of the aortic and mitral valves present but no significant stenosis or regurgitation present. 5) Pulmonary hypertension present, estimated systolic pulmonary pressure of 62mmHg. 6) Compared to the Echo done 08/06/2012, LV function has decreased significantly from 55-60% to 2025% on today's study. Findings consistent with ischemic cardiomyopathy. Echocardiogram Report Interpretation Summary Additional Diagnostics . US RENAL SONOGRAM IMPRESSION: 1. No hydronephrosis. 2. No ascites. Dictated by: Guerda Dueñas M.D. on 08/31/2016 at 13:13 Assessment & Plan Patient is a 76-year-old male with hypertension, type 2 diabetes mellitus, ADELA, hyperlipidemia, and CAD s/p CABG and stent placement presenting with shortness of breath and generalized weakness. Hospital day 8. 1. Acute kidney injury. Present on admission. Active -Multifactorial:initial SUBHA due to IV contrast for initial PE imaging study and cardiac cath.current SUBHA seems to be due to overdiuresis -Avoid nephrotoxins -Nephrology following. Recommendations per nephrology appreciated -Bolus of NS 250cc followed by NS at 50cc/hr today 09/01 -Hold Lasix.he has been getting lasix 80 mg iv tid ,has been on hold for the last 24 hrs .I do not think current SUBHA is due to cardiorenal . his CHF seems to have improved given his respiratory status has improved markedly and diursed >- 5 L balance. He was on high flow and BiPAP with FiO2 as high as 70-80% prior to cardiac cath. Chest x-ray picture of pulmonary edema persists but clinically respiratory status improving. -Follow with CMP 2. Acute on chronic congestive heart failure due to NSTEMI. Present on admission. Improving -Elevated Pro-BNP 5206. Imaging with evidence of pulmonary edema and cardiomegaly -Likely secondary to ischemia given ST-depressions on EKG -Cardiology consult, the recommendations are appreciated -Echocardiogram showed EF 20-25%. Hypokinesis and anterior lateral wall, akinesis in the cardiac apex. Pulmonary hypertension. LV function is significantly decreased from prior echo 2012 -Repeat ECHO post-catheterization procedure continues to show a reduced systolic function though EF is now reported to be 25-30%, otherwise no significant change. -Holding diuresis given renal failure -Metoprolol succinate reduced from 50 mg twice a day to 25mg BID -CXR continues to show pulmonary edema, though improved -Holding hydralazine given low blood pressure. Will restart when BP allows 3. NSTEMI, acute. Present on admission. Improved -EKG with ST-depressions of anteroseptal leads -Cardiac catheterization with stent placement to circumflex -Telemetry -Morphine and SL nitroglycerin PRN -Aspirin -Plavix -Rosuvastatin 20 mg daily 4. Acute hypoxemic respiratory failure. Present on admission. Resolved -Continues to require supplemental oxygen. Currently oxymask 9L -Suspect secondary to above 5. Dyspnea, acute. Present on admission ongoing -Suspect secondary to #1. Chest CT angio without evidence of PE -Infectious etiology seems less likely, procalcitonin slightly elevated, trending down and clinically without fever, chills, cough though does have leukocytosis -Continue with supplemental oxygen 6. Leukocytosis. Present on admission. Ongoing -White count yuki from 12.1 admit to a peak of 19, currently trending down -Likely secondary to stress response. Infectious etiology less likely but also on differential -Continue to monitor daily CXR, Procal, WBC 7. Lactic acidosis, acute. Present on admission. Resolved -Likely secondary to hypoxemia and heart failure -Trended down from 2.7 on admit to 1.3 -Continue to monitor 8. Initially suspected urinary tract infection. Present on admission. Resolved - Urine showed 6-10 WBCs, no leukocyte esterase, negative nitrate - Urine culture negative to date - Ceftriaxone DC - Will remove [place] once high dose diuretics is tapered 9. Hyponatremia, acute. Present on admission. Ongoing -Likely secondary to CHF -Management per above 10. Hyperkalemia, acute. Present on admission. Ongoing -Likely secondary to SUBHA remains elevated -Continue to monitor with CMP 11. Coronary artery disease s/p CABG and stent, chronic. Present on admission -Aspirin, Plavix, statin as in #1 12. Type 2 diabetes mellitus, chronic. Present on admission. Stable -Hold home Januvia -Bedside blood glucose checks -Low dose Lispro correction 13. Hypertension, chronic. Present on admission -Hold lisinopril secondary to SUBHA and hyperkalemia 14. Dyslipidemia, chronic. Present on admission -Continue home dose rosuvastatin 20mg daily 15. ADELA, chronic. Present on admission -Uses CPAP at home 16. Obesity, chronic. BMI 30 17. Anxiety, chronic. Present on admission. Ongoing - Restart home diazepam 5 mg three times a day Disposition: Patient remain inpatient status in [facility]. Worsening renal function and continued pulmonary edema. Anticipate at least 2-3 more days for close monitoring. VTE Prophylaxis: Sub-Q Heparin (Unfractionated) VTE Mechanical Devices: Intermittant Pneumatic CD Resuscitation Status: CPR: Attempt Resuscitation Attending Statement The patient was seen and examined together with Dr. Medley on 09/01/16 and I agree with the history, exam and plan as outlined in the note above. Duncan Medley DO Sep 01, 2016 08:12 Adrian Shelby MD Sep 01, 2016 16:16
--- NOTE | 2016-09-01 18:24 | NUR ---
Held Medications/Bowel medications Held PO hydralazine, Metoprolol, nitroglycerin for low BP. MD aware. Pt has not had BM August 24. Pt denies n/v. Miralax and Senna administered this shift as pt continues to have no bowel movement. Bowel sounds hyperactive in all 4 quadrants. Pt is amenable to drinking prune juice in conjunction to bowel medications.
[2016-09-02] VITALS (9 sets, daily range): BP systolic 86–111; BP diastolic 48–62; PULSE 80–89; RESP 13–24; O2SAT 94–99
[2016-09-02] MEDS: 0.9% Sodium Chloride 1,000 ML IV SCH (02:50)
[2016-09-02 03:48] LABS: BASOPHILS % (AUTO) 0.2 % (0-3); EOSINOPHILS % (AUTO) 0.8 % (0-5); MONOCYTES % (AUTO) 15.8 % (4-12); Mean Corpuscular Hemoglobin 28.2 pg (27.0-35.0); Mean Corpuscular Volume 89.1 fL (81-100); Platelet Count 424 bil/L (150-400)
[2016-09-02 04:08] LABS: Magnesium 3.1 mg/dL (1.6-2.6)
[2016-09-02] MEDS: Heparin 5,000 Unit/mL Inj SUBQ SCH ×3 (06:42→21:29)
--- NOTE | 2016-09-02 07:38 | NUR ---
BP/Labs/UOP/Pain Pt's SBP 90s at start of shift, all BP meds held per MD, including metoprolol. FYI page sent to night resident regarding BUN/Cr/K/Mag labs this morning as well as an update that UOP was minimal at barely over 150mL. Pt somnolent most of shift but able to wake and A&Ox3. Pt very soft spoken and difficult to understand but follows commands and voices needs. Pt c/o knee pain but was refusing pain medication stating "it'll knock me out cold" and that the pain was tolerable. Pt also refused tylenol. Pt again this morning looked to be in pain and stated knee was hurting but refused medication. Pt educated on pain management and was convinced to take Tylenol. This was just prior to shift change. Oncoming RN aware. Pt also encouraged to do Q2 turns, mepilex applied to sacrum for prophylaxis.
--- NOTE | 2016-09-02 07:47 | NUR ---
O2 Sats mid 90s on 7L oxymask but pt continually pulls mask off and immediately desats down as far as low 80s and takes a long time to recover. O2 titrated up to 15L during this time and then back down to 7L. Mepilex applied to nose to prevent skin break down, pt took this off.
[2016-09-02] MEDS: Sodium Chloride LOK Flush 10 mL Syringe IVFLUSH SCH ×3 (08:30→21:39)
[2016-09-02] MEDS: Nitroglycerin 2% 1 Gm Ointment TOPICAL SCH ×2 (08:30→20:30)
[2016-09-02] MEDS: Insulin LISPRO 300 Unit/3 mL Inj SUBQ SCH ×4 (09:14→21:33)
[2016-09-02] MEDS: MeTOProlol XL 25 mg ER24 Tablet PO SCH ×2 (09:15→20:30)
[2016-09-02] MEDS: Polyethylene Glycol (PEG) 17 Gm Powder PO SCH (09:31)
[2016-09-02 10:09] LABS: Hepatitis A Antibody IgM Negative (Negative); Hepatitis B Core Antibody IgM Negative (Negative)
--- NOTE | 2016-09-02 11:31 | NUR ---
NUTRITION FOLLOW UP: ASSESS: 76 yo M admitted for SOB and weakness. Cardiology is following and pt is s/p stent placement. Pt still eating poorly; has had poor nutrition X [address], pt stated that he doesn't like the hospital food much. Pt's family has brought in some food (pistachios and applesauce). PMHX: T2DM, HTN, ADELA, PVD, CAD LABS: Reviewed. Na 124, K+ 5.5, BUN 115, Cr 4.55, Glu 118, Mg 3.1, AST 55, Alb 2.9 MEDS: Reviewed. Insulin, Miralax, Senna, Vitamin D GI: 0 BM SKIN: Jimbo 13 CURRENT WT: 97.3k g, BMI 31.7 kg/m2, Admit wt 94.6 kg, IBW 72.7 kg DIET: Soft, Heart Healthy + Glucerna, PO intake refusal-bites ESTIMATED NEEDS: BMI, SUBHA Calories: 5116-4542 kcal/day (20-22 kcal/kg BW) Protein: 75-85 g/day (1.0-1.2 g/kg IBW) NUTRITION DIAGNOSIS: 1.) Inadequate oral intake related to decreased appetite as evidence by poor PO intake of only bites.---PERSISTS. NUTRITION INTERVENTION: 1.) Continue to send Chocolate Glucerna on L tray per pt preference 2.) Family encouraged to bring in heart healthy food pt prefers 3.) Previous RD encouraged pt to try to eat ~50% of meals to help him keep his strength up and help with healing. MONITOR/EVALUATE: PO intake, diet tolerance, wt, GI, labs, POC, nutrition status. Follow per high nutrition risk guidelines
--- NOTE | 2016-09-02 11:33 | NUR ---
Social Work Note: Continued Discharge Planning Data& Assessment: Per MD in morning rounds, pt is not medically ready for discharge at this time. Pt is on high flow 02, requiring 15L of oxygen. Pt is unable to safely discharge to SNF until he is below 10L of oxygen. KYLE spoke with Allison at [facility] to update her on pt status. [facility] is ready to accept pt once pt respiratory status stabilizes and oxygen need decrease. SW to continue to follow. Plan: Anticipated discharge to [facility] when medically ready. SW to continue to follow. RICKEY San
--- NOTE | 2016-09-02 11:40 | DRSVH ---
PROCEDURE: X-RAY CHEST ONE VIEW, PORTABLE ([id number]) INDICATIONS: Pulm edema TECHNIQUE: One view of the chest was acquired. COMPARISON: [facility], CR, XR CHEST 1VW (PORTABLE), 08/31/2016, 4:59. FINDINGS: Surgical changes and devices: Median sternotomy wires. Lungs and pleura: Diffuse, widespread bilateral pulmonary interstitial and air space opacities are p resent no significant change from the prior examination. Small pleural effusions also unchanged. No pneumothorax. Mediastinum: Mediastinal contours appear normal. Heart size is normal. Bones and chest wall: No suspicious bony lesions. Overlying soft tissues appear unremarkable. IMPRESSION: 1. Pulmonary edema and/or diffuse bilateral pneumonia not significantly changed from prior examinatio n. Developing ARDS cannot be excluded. 2. Small effusions. 3. Cardiomegaly redemonstrated. Dictated by: Satish Sharma [facility] Interpreted: Darin Fonseca MD on 09/02/2016 at 11:39 Transcribed by: PAZ on 09/02/2016 at 11:40 Approved by: Darin Fonseca M.D. on 09/02/2016 at 14:31
[2016-09-02 11:52] LABS: INR 1.1 ratio
[2016-09-02] MEDS ORDERED: 0.9% Sodium Chloride 250 ML IV ONE (12:30)
--- NOTE | 2016-09-02 13:27 | PCM.PROC ---
Procedure Note Date of Service: Sep 02, 2016 Pre Procedure Diagnosis: Uremic Acute Kidney Injury on Chronic Kidney Failure Mild Hypervolemia Hyponatremia Hypochloremia Hyperkalemia Hypermagnesemia Post Procedure Diagnosis: Uremic Acute Kidney Injury on Chronic Kidney Failure Mild Hypervolemia Hyponatremia Hypochloremia Hyperkalemia Hypermagnesemia Procedure: right femoral dialysis catheter placement Provider and Client Executive: Dr. Neha Bunch Indication for Procedure: Uremic and Hyperkalemic Procedural Analgesia: Lidocaine 1% 5mL SQ and IM Procedure Details: The patient was placed in flat supine position appropriate for right femoral dialysis catheter line placement based on the vein to be cannulated. The patients right groin was prepped with chlorhexidine twice and draped in sterile fashion. 5mL of 1% Lidocaine was used to anesthetize the surrounding skin area with a subcutaneous wheel and then down intramuscularly. Prior to placement each lumen of the dialysis catheter was evacuated of air and flushed with sterile saline to confirm function. Next a large bore finder needle was introduced into the right common femoral with ultrasound guidance and a wire was attempted to be threaded however the wire met resistance even though the finder needle had good blood return. The finder needle was withdrawn and pressure was held at the site of venipuncture. The vessel was then reimaged with ultrasound and the finder needle was reintroduced more laterally than the initial attempt, which resulted in a good blood return and a easy wire thread without resistance. A small skin incision was made at the wire and two dilators were threaded moving from the smaller size to the larger size dilator. Lastly a double lumen 20cm dialysis catheter was introduced into the the right common femoral vein using the Seldinger technique and under ultrasound guidance. The catheter was threaded smoothly over the guide wire and appropriate blood return was obtained prior to each lumen of the catheter being flushed with sterile saline. The catheter was then sutured in place to the skin and a sterile dressing applied. Perfusion to the extremity distal to the point of catheter insertion was checked and found to be adequate. Dr. Solomon was present for the entire procedure. Estimated Blood Loss: <20mL> The patient tolerated the procedure well and there were no complications. Post Procedure Plan: Hemodialysis for uremia and the numerous electrolyte abnormalities Cristi Bunch DO Sep 02, 2016 13:27
--- NOTE | 2016-09-02 13:53 | PCM.PNNEPH ---
Subjective Date of Service Sep 02, 2016 Subjective The patient states that he feels ok. However the family says that he has been coughing and his mind does not appear to be clear. The family states that he seems to be sleeping more and more groggy. The patient denies abdominal pain or distention. The family states that they do not believe he has had a bowel movement in a week. Exam Vital Signs Vital Sign - Last Date Time Temp Pulse Resp B/P Pulse Ox O2 Delivery O2 Flow Rate FiO2 09/02/16 12:00 36.5 80 18 86/48 97 OxyMask 15.00 08/27/16 18:23 65 Intake and Output 09/01/16 09/01/16 09/02/16 Cumulative From/Thru 14:59 22:59 06:59 08/25/16 06:10 - 09/01/16 23:26 Intake Total 320 ml 7759 ml Output Total 300 ml 39649 ml Balance 20 ml -3366 ml Intake Oral 320 ml 4702 ml IV Total 3057 ml Output Urine Total 300 ml 69771 ml # Bowel Movements 0 Exam General: Ill-appearing, no distress, well-developed, well-nourished, lethargic and somnolent Eyes: PERRLA, anicteric sclera, pale conjunctiva HENT: Normocephalic, atraumatic. External ears without defect. Oxymask in place with dry mucus membranes without central cyanosis Neck: Thick, supple, mild JVD noted Cardiovascular: Regular rate and rhythm with no murmurs, rubs, or gallops appreciated Pulmonary: Crackles worse in the right than left and worst at the bases bilaterally. Normal respiratory effort with no use of accessory muscles. Abdomen: Bowel tones present. Soft, nontender, mild distended. Extremities: Mild bilateral lower extremity edema. Right knee with healing surgical incision. : beckett in place Skin Warm and dry Neurological: Cranial nerves grossly intact, able to move all extremities Psychiatric: flat affect, somnolent IVs and Medications Medications Reviewed: Medications were reviewed in detail Lab and Diagnostics Result Diagram: 09/02/16 0325 09/02/16 0325 Microbiology Urine culture no growth Blood culture no growth 2 days MRSA screen negative X-Rays, CTs and MRIs CT ANGIO CHEST PULMONARY EMBOLISM IMPRESSION: No evidence of pulmonary embolism. Small bilateral pleural effusions with adjacent atelectasis. Rounded focus of low attenuation seen within the left fissure likely loculated fluid (i.e. pseudotumor). Recommend continued followup with PA and lateral chest radiographs to document resolution after treatment. Scattered groundglass opacities and mild interlobular septal thickening suggesting pulmonary edema. Please correlate clinically. Cardiomegaly and reflux of contrast into the IVC and hepatic veins, which suggests decreased cardiac output. Dictated and approved by: Darin Fonseca M.D. on 08/25/2016 at 8:06 X-RAY CHEST ONE VIEW, PORTABLE IMPRESSION: Patchy bibasilar consolidation, and focal opacity in the left midlung. This is better characterized on comparison CTA chest dated same day. Please see report. Dictated and approved by: Darin Fonseca M.D. on 08/25/2016 at 9:05 X-RAY CHEST ONE VIEW, PORTABLE IMPRESSION: Worsening pulmonary edema and/or diffuse bilateral pneumonia. Dictated by: Satish HURTADO Interpreted: Guerda Dueñas MD on 08/27/2016 at 10: 32 X-RAY CHEST ONE VIEW, PORTABLE IMPRESSION: No significant change in pulmonary edema and/or diffuse bilateral pneumonia. Dictated by: Satish HURTADO Interpreted: Virgen Yee MD on 08/28/2016 at 8: 57 X-RAY CHEST ONE VIEW, PORTABLE IMPRESSION: No significant change from prior examination suggesting pulmonary edema and/or diffuse bilateral pneumonia. Dictated by: Satish Sharma RR Interpreted: Guerda Dueñas MD on 08/29/2016 at 10:03 Cardiac Echo Impressions . Echocardiogram Report Interpretation Summary: 1) Mild concentric left ventricular hypertophy with mild dilatation and severely reduced systolic function (EF 20-25%). 2) Mildly dilated right ventricle with moderately reduced function. 3) Anterolateral wall is severely hypokinetic and the entire apex is akinetic. Rest of the umanzor are mildly hypokinetic. 4) Age related calcification of the aortic and mitral valves present but no significant stenosis or regurgitation present. 5) Pulmonary hypertension present, estimated systolic pulmonary pressure of 62mmHg. 6) Compared to the Echo done 08/06/2012, LV function has decreased significantly from 55-60% to 2025% on today's study. Findings consistent with ischemic cardiomyopathy. Echocardiogram Report Interpretation Summary The left ventricle is mildly dilated. Left ventricular systolic function is severely reduced. The ejection fraction is estimated to be 25-30%. There has been no significant change since the previous study. Compared to the prior exam, the left ventricular wall motion has not changed. The basal inferoseptal wall has the most preserved augmentation in comparison with rest of LV segments. The apical septum is preserved as well. The rest of LV is moderately to severely hypokinetic. The right ventricle is not well visualized. Right ventricular systolic function is mild to moderately reduced. Right ventricular systolic pressure is estimated to be 50 mmHg plus the clinically estimated CVP which cannot be estimated on this exam. There is mild to moderate mitral regurgitation. There is no other significant valvular heart disease. Additional Diagnostics US RENAL SONOGRAM IMPRESSION: 1. No hydronephrosis. 2. No ascites. Dictated by: Guerda Dueñas M.D. on 08/31/2016 at 13:13 Plan Impression 76yoM with Systolic congestive heart failure and chronic kidney disease with multiple recent contrast studies including CT PE and cardiac catheterization. 1. Acute Kidney Injury on Chronic Kidney Failure 2. Mild Hypervolemia 3. Uremic 4. Hyponatremia 5. Hypochloremia 6. Hyperkalemia 7. Hypermagnesemia 8. Normocytic Anemia Plan: 1. Acute Kidney Injury on Chronic Kidney Failure - Likely a combination of kidney insults including multiple contrast studies over one week and over diuresis of heart failure. Right femoral dialysis catheter has been placed in preparation for hemodialysis today. The hemodialysis should help treat all the numerous electrolyte abnormalities as well as the uremia and even improve the anemia by removing extra fluid. Please avoid further nephrotoxic insults including further contrast studies, NSAIDS, ACEI/ARBs, or further diuretics. 2. Normocytic Anemia - likely multifactorial including iron deficiency and chronic kidney disease - consider giving IV Iron Sucrose which is well tolerated, if the patient's anemia does not improve with dialysis - monitor - consider blood transfusions with hemoglobin below 8 given cardiac issues including CAD with recent stent placement in the circumflex due to critical stenosis Cristi Bunch DO Sep 02, 2016 13:53
--- NOTE | 2016-09-02 14:21 | PROG NOTE ---
[address] [address] PROGRESS NOTE PATIENT: NISHI BOSWELL : 1940 MR#: [id number] ADMIT: 08/25/2016 JOB ID: [id number] DATE: 09/02/2016 CHIEF COMPLAINT: Sleepiness. SUBJECTIVE: The patient says he feels tired. He has been having increased O2 requirement. He was requiring 8 L delivered via OxyMask, but had to be increased to 15 L/minute while he was eating because he was developing worsening hypoxia. The patient denies any headache, any nausea or vomiting, and Cardiology is following for what appears to be clinically contrast nephropathy and pulmonary edema. PHYSICAL EXAMINATION: Elderly man. Does not appear to be in acute distress. Blood pressure 98/62, up to 111/62, pulse 804-87 beats per minute, satting 98% on 15 L/minute delivered via OxyMask. Chronically ill-appearing elderly man. Lungs with decreased breath sounds bilaterally. No wheezes. Heart: Normal S1 and S2. There is 1/6 systolic murmur heard best at the apex. Neck veins are at 8 cm of blood. Abdomen is obese, soft. No palpable hepatosplenomegaly. Extremities are cool at the feet. There is trace edema and serial compression devices are on. CURRENT MEDICATIONS: 1. Allopurinol 100 mg daily. 2. Oxycodone as needed, and he most recently got a dose this morning. 3. MiraLAX. Most recently got a dose this morning. 4. Toprol-XL 25 mg twice a day. 5. Plavix 75 mg daily. 6. Crestor 20 mg daily. 7. Vitamin D. 8. Lispro sliding scale insulin. 9. Aspirin 81 mg daily. 10. Subcu heparin. 11. He has got diazepam ordered as needed. He has not gotten it in 48 hours. 12. Hydralazine is ordered as needed. Has not gotten it this morning. DIAGNOSTICS: His EKG today shows normal sinus rhythm. Residual [address] depressions in V1, V2, V3, V4. This is most consistent with history of ischemia that was documented on his angiogram. Cardiac catheterization: I personally reviewed the cardiac catheterization performed by Dr. Espinoza. I appreciate his expertise. Briefly, he patient has single bypass, HUDSON to LAD. Basically, he does not really have left main, per se. He has diffusely diseased ramus intermedius, and 99% proximal circumflex lesion, with evidence of previously stented OM1. He had very high filling pressure because Dr. Espinoza did both right and left heart catheterization. Right atrial pressure was 16. Right ventricular pressure 57/14. Pulmonary artery pressure was 66/30. Pulmonary capillary wedge pressure was not explicitly stated. Cardiac output was 4 L/minute based on Selin method. His left ventricular end-diastolic pressure is 35, 40 mmHg. There is no gradient based on pullback. His [place] LAD is totally occluded proximally. HUDSON to LAD is outstanding with mild 30% stenosis at the HUDSON to LAD anastomosis. Patient had Xience drug-eluting stent deployed to proximal circumflex. It is not explicitly stated how much iodinated contrast agent was utilized, but I imagine that in combination with the CT PE protocol together contributed to patient's clinical deterioration and worsening kidney function. I reviewed patient's labs. Unfortunately, he is anemic. His hematocrit is 26% which got worse since admission. His creatinine yuki from 1.6 up to 4.5. His BUN is now 116. He is quite somnolent as a result. He is getting hyperkalemic. His potassium is now 5.5. His sodium is falling, probably due to worsening cardiomyopathy. EF is now 124. I personally reviewed the CT on admission and he had, on personal review, mild interstitial opacities consistent with fluid. He has moderate right-sided pleural effusion and a small loculated, round, hypodense lesion consistent with loculated pleural effusion in the left fissure. He is doing poorly this morning. I think he needs to be dialyzed so he can feel better. I do not think we can make him breathe any easier. I think that while it is possible that he has noncardiogenic pulmonary edema, evidence suggests otherwise since he had very high filling pressure during his angiogram performed August 27, 2016. He has not really diuresed much since then, so I do not think his volume status is magically better. While he does not have evidence of RV dysfunction on exam, we cannot tell his filling pressure on exam; we can only guess it, and I think he meets criteria for dialysis because of his worsening uremia. I recommend stopping IV fluids so that he does not get worsening oxygenation. If there are some concerns about volume status, I can potentially offer right heart catheterization to be repeated. He had one on the but I can do it again and document what his filling pressures are currently. Thank you very much for the opportunity to evaluate him.
--- NOTE | 2016-09-02 14:22 | PCM.PNMED ---
Subjective Date of Service Sep 02, 2016 Subjective Patient is a 76-year-old male with hypertension, type 2 diabetes mellitus, ADELA, hyperlipidemia, and CAD s/p CABG and stent placement admitted for shortness of breath and generalized weakness. He underwent cardiac catheterization with subsequent BLAS to proximal circumflex. Hospital day 8 Overnight: Urine output approximately 250 mL, patient remained somnolent most of shift but was able to be woken up and was a noted 3. Able to follow command and could not still complains of knee pain, no refused pain medications. Required oxygen mask throughout the night to maintain saturations in the 90s and would desaturate to 80s when removed. Today: Patient awake but somnolent laying in bed without oxygen mask in place at bedside. He is minimally conversant and still dates a right knee pain. Does not state shortness of breath or difficulty breathing. Exam Vital Signs Vital Sign - Last Date Time Temp Pulse Resp B/P Pulse Ox O2 Delivery O2 Flow Rate FiO2 09/02/16 12:00 36.5 80 18 86/48 97 OxyMask 15.00 08/27/16 18:23 65 Intake and Output 09/01/16 09/01/16 09/02/16 Cumulative From/Thru 15:00 23:00 07:00 08/25/16 06:10 - 09/01/16 23:26 Intake Total 320 ml 7759 ml Output Total 300 ml 06526 ml Balance 20 ml -3366 ml Intake Oral 320 ml 4702 ml IV Total 3057 ml Output Urine Total 300 ml 94451 ml # Bowel Movements 0 Exam General: Laying in hospital bed with family at bedside, arousable to voice and able to follow commands though still very somnolent. HEENT: Normocephalic, atraumatic. PERRL. mucous membranes appear dry. Oxymask in place Neck: Mild JVD. Cardiovascular: Tachycardic rate with a regular rhythm. No murmurs appreciated Pulmonary: Upper anterior lobes clear to auscultation. Scar midline sternum area from previous surgery Abdomen: Soft, nontender, nondistended. No appreciable fluid wave : [place] cath in place. Extremities: No clubbing, cyanosis, mild lower extremity edema to ankles Skin: Normal temperature, turgor, and texture Neurological: Cranial nerves grossly intact. Psychiatric: Somnolent but arousable and conversant, slow to speak responses to questions often pausing for significant periods of time in between words. IVs and Medications Medications Reviewed: Medications were reviewed in detail Lab and Diagnostics Result Diagram: 09/02/16 0325 09/02/16 0325 Microbiology Urine culture no growth- final Blood culture no growth 5 days- final MRSA screen negative- final X-Rays, CTs and MRIs CT ANGIO CHEST PULMONARY EMBOLISM IMPRESSION: No evidence of pulmonary embolism. Small bilateral pleural effusions with adjacent atelectasis. Rounded focus of low attenuation seen within the left fissure likely loculated fluid (i.e. pseudotumor). Recommend continued followup with PA and lateral chest radiographs to document resolution after treatment. Scattered groundglass opacities and mild interlobular septal thickening suggesting pulmonary edema. Please correlate clinically. Cardiomegaly and reflux of contrast into the IVC and hepatic veins, which suggests decreased cardiac output. Dictated and approved by: Darin Fonseca M.D. on 08/25/2016 at 8:06 X-RAY CHEST ONE VIEW, PORTABLE IMPRESSION: Patchy bibasilar consolidation, and focal opacity in the left midlung. This is better characterized on comparison CTA chest dated same day. Please see report. Dictated and approved by: Darin Fonseca M.D. on 08/25/2016 at 9:05 X-RAY CHEST ONE VIEW, PORTABLE IMPRESSION: Worsening pulmonary edema and/or diffuse bilateral pneumonia. Dictated by: Satish HURTADO Interpreted: Guerda Dueñas MD on 08/27/2016 at 10: 32 X-RAY CHEST ONE VIEW, PORTABLE IMPRESSION: No significant change in pulmonary edema and/or diffuse bilateral pneumonia. Dictated by: Satish HURTADO Interpreted: Virgen Yee MD on 08/28/2016 at 8: 57 X-RAY CHEST ONE VIEW, PORTABLE IMPRESSION: No significant change from prior examination suggesting pulmonary edema and/or diffuse bilateral pneumonia. Dictated by: Satish HURTADO Interpreted: Guerda Dueñas MD on 08/29/2016 at 10:03 X-RAY CHEST ONE VIEW, PORTABLE IMPRESSION: 1. Diffuse pulmonary edema and/or bilateral pneumonia similar prior examination. 2. Bilateral pleural effusions, left greater than right and loculated of the left effusion and/or developing empyema cannot be excluded. If indicated CT could be performed for further assessment. Dictated by: Satish HURTADO Interpreted: Virgen Yee MD on 08/30/2016 at 9: 03 X-RAY CHEST ONE VIEW, PORTABLE IMPRESSION: Bilateral pleural effusions and pulmonary radiopacities, overall unchanged when compared with yesterday's study. Dictated by: Guerda Dueñas M.D. on 08/31/2016 at 8:29 X-RAY CHEST ONE VIEW, PORTABLE IMPRESSION: 1. Pulmonary edema and/or diffuse bilateral pneumonia not significantly changed from prior examination. Developing ARDS cannot be excluded. 2. Small effusions. 3. Cardiomegaly redemonstrated. Dictated by: Satish HURTADO Interpreted: Darin Fonseca MD on 09/02/2016 at 11:39 Cardiac Echo Impressions . Echocardiogram Report Interpretation Summary: 1) Mild concentric left ventricular hypertophy with mild dilatation and severely reduced systolic function (EF 20-25%). 2) Mildly dilated right ventricle with moderately reduced function. 3) Anterolateral wall is severely hypokinetic and the entire apex is akinetic. Rest of the umanzor are mildly hypokinetic. 4) Age related calcification of the aortic and mitral valves present but no significant stenosis or regurgitation present. 5) Pulmonary hypertension present, estimated systolic pulmonary pressure of 62mmHg. 6) Compared to the Echo done 08/06/2012, LV function has decreased significantly from 55-60% to 2025% on today's study. Findings consistent with ischemic cardiomyopathy. Echocardiogram Report Interpretation Summary: The left ventricle is mildly dilated. Left ventricular systolic function is severely reduced. The ejection fraction is estimated to be 25-30%. There has been no significant change since the previous study. Compared to the prior exam , the left ventricular wall motion has not changed. The basal inferoseptal wall has the most preserved augmentation in comparison with rest of LV segments. The apical septum is preserved as well. The rest of LV is moderately to severely hypokinetic. The right ventricle is not well visualized. Right ventricular systolic function is mild to moderately reduced. Right ventricular systolic pressure is estimated to be 50 mmHg plus the clinically estimated CVP which cannot be estimated on this exam. There is mild to moderate mitral regurgitation. There is no other significant valvular heart disease. Additional Diagnostics US RENAL SONOGRAM IMPRESSION: 1. No hydronephrosis. 2. No ascites. Dictated by: Guerda Dueñas M.D. on 08/31/2016 at 13:13 Assessment & Plan Patient is a 76-year-old male with hypertension, type 2 diabetes mellitus, ADELA, hyperlipidemia, and CAD s/p CABG and stent placement presenting with shortness of breath and generalized weakness. Hospital day 9. 1. Acute kidney injury. Present on admission. Active -Multifactorial:initial SUBHA due to IV contrast for initial PE imaging study and cardiac cath.current SUBHA seems to be due to overdiuresis -Avoid nephrotoxins -IV fluids, normal saline -Hold Lasix -Follow with CMP -Nephrology following. Recommendations per nephrology appreciated -Patient to receive dialysis 2. Acute on chronic congestive heart failure due to NSTEMI. Present on admission. Improving -Elevated Pro-BNP 5206. Imaging with evidence of pulmonary edema and cardiomegaly -Likely secondary to ischemia given ST-depressions on EKG -Cardiology consult, recommendations are appreciated -Echocardiogram showed EF 20-25%. Hypokinesis and anterior lateral wall, akinesis in the cardiac apex. Pulmonary hypertension. LV function is significantly decreased from prior echo 2012 -Repeat ECHO post-catheterization procedure continues to show a reduced systolic function though EF is now reported to be 25-30%, otherwise no significant change. -Holding diuresis given renal failure -Metoprolol succinate reduced from 50 mg twice a day to 25mg BID -CXR continues to show pulmonary edema, though improved -Holding hydralazine given low blood pressure. Will restart when BP allows 3. NSTEMI, acute. Present on admission. Improved -EKG with ST-depressions of anteroseptal leads -Cardiac catheterization with stent placement to circumflex -Telemetry -Morphine and SL nitroglycerin PRN -Aspirin -Plavix -Rosuvastatin 20 mg daily 4. Acute hypoxemic respiratory failure. Present on admission. Resolved -Continues to require supplemental oxygen. Currently oxymask 10L -Suspect secondary to above 5. Dyspnea, acute. Present on admission ongoing -Suspect secondary to #1. Chest CT angio without evidence of PE -Infectious etiology seems less likely, procalcitonin slightly elevated, trending down and clinically without fever, chills, cough though does have leukocytosis -Continue with supplemental oxygen 6. Leukocytosis. Present on admission. Ongoing -White count yuki from 12.1 admit to a peak of 19, currently trending down -Likely secondary to stress response. Infectious etiology less likely but also on differential -Continue to monitor daily CXR, Procal, WBC 7. Lactic acidosis, acute. Present on admission. Resolved -Likely secondary to hypoxemia and heart failure -Trended down from 2.7 on admit to 1.3 -Continue to monitor 8. Initially suspected urinary tract infection. Present on admission. Resolved - Urine showed 6-10 WBCs, no leukocyte esterase, negative nitrate - Urine culture negative to date - Ceftriaxone DC 9. Hyponatremia, acute. Present on admission. Ongoing -Likely secondary to CHF -Management per above 10. Hyperkalemia, acute. Present on admission. Ongoing -Likely secondary to SUBHA remains elevated -Continue to monitor with CMP 11. Coronary artery disease s/p CABG and stent, chronic. Present on admission -Aspirin, Plavix, statin as in #1 12. Type 2 diabetes mellitus, chronic. Present on admission. Stable -Hold home Januvia -Bedside blood glucose checks -Low dose Lispro correction 13. Hypertension, chronic. Present on admission -Hold lisinopril secondary to SUBHA and hyperkalemia 14. Dyslipidemia, chronic. Present on admission -Continue home dose rosuvastatin 20mg daily 15. ADELA, chronic. Present on admission -Uses CPAP at home 16. Obesity, chronic. BMI 30 17. Anxiety, chronic. Present on admission. Ongoing - Restart home diazepam 5 mg three times a day Disposition: Patient remain inpatient status in [facility]. Worsening renal function and continued pulmonary edema. Prognosis guarded awaiting clinical response to dialysis Pain Evaluation: Adequate Pain Control VTE Prophylaxis: Sub-Q Heparin (Unfractionated) VTE Mechanical Devices: Intermittant Pneumatic CD Resuscitation Status: CPR: Attempt Resuscitation Attending Statement The patient was seen and examined together with Dr. Arana on 09/02/2016 and I agree with the history, exam and plan as outlined in the note above. . ROMAIN ARANA DO Sep 02, 2016 14:02 Hector Sarkar MD Sep 02, 2016 17:14
[2016-09-02 16:27] LABS: APPEARANCE,URINE CLEAR (CLEAR,HAZY); COLOR,URINE YELLOW (YELLOW); OCCULT BLOOD,URINE MODERATE (NEGATIVE); UROBILINOGEN,URINE NORMAL (NORMAL)
--- NOTE | 2016-09-02 18:02 | NUR ---
KIDNEY FUNCTION/PLUM P-Patient Cr 4.5 BUN 115, urine output 80ml this shift. Patient on 8L Oxymask but drops to low 80's during feeding and requires 15L and some time to recover to sats 90's. I- MD made aware of kidney and new order for femoral access and dialysis received. and consent obtained. Patient currently on 8L Oxymask and sats in 97%. CRX done today. E- Dialysis just finishing up, will continue to monitor. Team aware of breathing concerns.
--- NOTE | 2016-09-02 18:25 | NUR ---
Dialysis note: S/P temp catheter placement 3 hrs tx Zero net UF Right femoral catheter, dsg dry and intact Hepatitis serologies drawn Pls see DTR for VS details Qb 250 No heparin given O2 @ 8L via mask on with sat 97-100% Tolerated treatment, slept at intervals Catheter flushed, heparin dwelled and secured Stable condition at end of tx Report given to Anil DAVILA
--- NOTE | 2016-09-02 22:58 | ABG ---
DateTimeAnalyzed 22:55:00 -_ pH ____7.377 - 7.350 7.450 pCO2 ___44.9__ -mmHg 35.0 45.0 pO2 ___78.7__ -mmHg 69.0 116 HCO3- ___25.8__ -mmol/L 22.0 26.0 ABE ____1.0__ -mmol/L -2.0 2.0 tHb ____8.1__ -g/dL O2Hb ___93.7__ -% COHb ____1.8__ -% MetHb ____0.9__ -% sO2 ___96.3__ -% 25.0 FIO2 ___55.0__ -% Drawn By blf - Spontaneous_RR ___20.0__ -b/min Liter_Flow ___10.0__ -L/min Oxygen Device 1 _OXY MASK - B 753 -mmHg tO2 ___10.8__ -Vol% Janes test N/A -
--- NOTE | 2016-09-02 23:35 | NUR ---
LOC/BP Per report pt had some confusion during day, oriented to place/self. Per MD notes, pt continues to be somnolent, but this nurse also noticed he seemed much more drowsy than previous night when he joked a little and was able to state the month. Now he falls asleep in the middle of assessment questions. Pt still arousable to voice/minor stimulation, following some commands but limited d/t drowsiness. Oriented to self/place consistent w/ report, unable to state year. Pt extremely weak but equally moves extremities, limited by right knee surgery, Q2 turns encouraged. Pt denies pain at this time, blood sugar 97. MD notified of findings as well as current kidney status. MD ordered ABGs and results were reported back. BP meds held d/t SBP 90s-100s. No further orders at this time, ongoing care. Addendum: 09/03/16 at 0101 by JAQUELINE VENEGAS RN Pt woke w/ most recent vitals and was much more talkative, orientation was the same but pt was much more alert and voicing needs. MD at bedside at the time. Pt also requesting pain medication for 7/10 knee/neck pain, pt noted to staff that he has had surgery on his cervical spine. Pt offered Tylenol and responded w/ "is that the best you can do?" Pt offered oxycodone and was agreeable. Post this medication pt has returned to sleep.
[2016-09-03] VITALS (8 sets, daily range): BP systolic 93–104; BP diastolic 50–74; PULSE 84–92; RESP 13–23; O2SAT 96–100
[2016-09-03 02:51] LABS: BASOPHILS % (AUTO) 0.3 % (0-3); EOSINOPHILS % (AUTO) 0.6 % (0-5); Mean Corpuscular Hemoglobin 27.8 pg (27.0-35.0); Mean Corpuscular Volume 90.7 fL (81-100); NEUTROPHILS % (AUTO) 74.6 % (40-74); Platelet Count 385 bil/L (150-400)
[2016-09-03 03:23] LABS: Magnesium 2.5 mg/dL (1.6-2.6)
[2016-09-03] MEDS: Heparin 5,000 Unit/mL Inj SUBQ SCH ×3 (06:01→21:07)
[2016-09-03] MEDS: 0.9% Sodium Chloride 1,000 ML IV SCH (06:02)
[2016-09-03] MEDS: Insulin LISPRO 300 Unit/3 mL Inj SUBQ SCH ×4 (08:00→21:08)
[2016-09-03] MEDS: Polyethylene Glycol (PEG) 17 Gm Powder PO SCH (08:22)
[2016-09-03] MEDS: Sodium Chloride LOK Flush 10 mL Syringe IVFLUSH SCH ×2 (08:24→17:57)
[2016-09-03] MEDS: MeTOProlol XL 25 mg ER24 Tablet PO SCH ×2 (08:30→20:30)
[2016-09-03] MEDS: Nitroglycerin 2% 1 Gm Ointment TOPICAL SCH ×2 (08:30→20:30)
--- NOTE | 2016-09-03 08:43 | DRSVH ---
PROCEDURE: X-RAY CHEST ONE VIEW, PORTABLE ([id number]) INDICATIONS: Pulmonary edema. TECHNIQUE: One view of the chest was acquired. COMPARISON: [facility], CR, XR CHEST 1VW (PORTABLE), 09/02/2016, 10:51. FINDINGS: Surgical changes and devices: Sternotomy. Lungs and pleura: Bilateral perihilar airspace infiltrates compatible with pulmonary edema. Overall, no significant change. There is a moderate right pleural effusion and small left effusion, also unch anged. No pneumothorax. Mediastinum: Mediastinal contours appear normal. Heart size is normal. Bones and chest wall: No suspicious bony lesions. Overlying soft tissues appear unremarkable. IMPRESSION: Persistent pulmonary edema. Dictated by: Gaby Vann M.D. on 09/03/2016 at 8:40 Approved by: Gaby Vann M.D. on 09/03/2016 at 8:42
[2016-09-03] MEDS ORDERED: Lactulose 20 Gm/30 mL 30 mL Syrup PO PRN (10:25)
--- NOTE | 2016-09-03 11:35 | PCM.PNMED ---
Subjective Date of Service Sep 03, 2016 Subjective Patient is a 76-year-old male with hypertension, type 2 diabetes mellitus, ADELA, hyperlipidemia, and CAD s/p CABG and stent placement admitted for shortness of breath and generalized weakness. He underwent cardiac catheterization with subsequent BLAS to proximal circumflex. Hospital day 9 Overnight: Patient received dialysis yesterday, continued to be somnolent throughout the night with reports of him being much more drowsy than previous night. He was still arousable to voice and stimulation and able to follow some commands. Blood pressure meds held secondary to low SBP. ABGs ordered overnight secondary to decreased mental status and found to be within normal limits. Today: This morning patient was much more talkative alert and voicing needs. Requesting pain medications for knee and neck pain. On exam patient awake and alert sitting up in bed appropriately interactive though still somewhat somnolent. Far better than yesterday's exam. Does not endorse any pain or discomfort, continues to joke with medical staff and family was also present in the room Exam Vital Signs Vital Sign - Last Date Time Temp Pulse Resp B/P Pulse Ox O2 Delivery O2 Flow Rate FiO2 09/03/16 11:16 87 09/03/16 08:20 36.4 13 101/60 98 OxyMask 7.00 Intake and Output 09/02/16 09/02/16 09/03/16 Cumulative From/Thru 15:00 23:00 07:00 08/25/16 06:10 - 09/03/16 06:02 Intake Total 1433 ml 750 ml 607 ml 96201 ml Output Total 300 ml 80 ml 33597 ml Balance 1133 ml 670 ml 607 ml -956 ml Intake Oral 200 ml 100 ml 5002 ml IV Total 1233 ml 650 ml 607 ml 5547 ml Output Urine Total 300 ml 80 ml 69661 ml Ultrafiltrate 0 ml 0 ml # Bowel Movements 0 Exam . General: Laying in hospital bed with family at bedside, awake and alert, somewhat somnolent but mentating far better than yesterday. HEENT: Normocephalic, atraumatic. PERRL. mucous membranes appear dry. Nasal cannula in place saturating well Neck: Mild JVD, improved from yesterday Cardiovascular: Regular rate with regular rhythm. No murmurs appreciated Pulmonary: Upper anterior lobes clear to auscultation. Scar midline sternum area from previous surgery Abdomen: Soft, nontender, nondistended. No appreciable fluid wave : [place] cath in place. Extremities: No clubbing, cyanosis, mild lower extremity edema to ankles Skin: Normal temperature, turgor, and texture Neurological: Cranial nerves grossly intact. Psychiatric: Somnolent but easily arousable and appropriately conversant. Conversational ability much improved from yesterday. IVs and Medications Medications Reviewed: Medications were reviewed in detail Lab and Diagnostics Result Diagram: 09/03/16 0240 09/03/16 0240 Microbiology Urine culture no growth- final Blood culture no growth 5 days- final MRSA screen negative- final X-Rays, CTs and MRIs CT ANGIO CHEST PULMONARY EMBOLISM IMPRESSION: No evidence of pulmonary embolism. Small bilateral pleural effusions with adjacent atelectasis. Rounded focus of low attenuation seen within the left fissure likely loculated fluid (i.e. pseudotumor). Recommend continued followup with PA and lateral chest radiographs to document resolution after treatment. Scattered groundglass opacities and mild interlobular septal thickening suggesting pulmonary edema. Please correlate clinically. Cardiomegaly and reflux of contrast into the IVC and hepatic veins, which suggests decreased cardiac output. Dictated and approved by: Darin Fonseca M.D. on 08/25/2016 at 8:06 X-RAY CHEST ONE VIEW, PORTABLE IMPRESSION: Patchy bibasilar consolidation, and focal opacity in the left midlung. This is better characterized on comparison CTA chest dated same day. Please see report. Dictated and approved by: Darin Fonseca M.D. on 08/25/2016 at 9:05 X-RAY CHEST ONE VIEW, PORTABLE IMPRESSION: Worsening pulmonary edema and/or diffuse bilateral pneumonia. Dictated by: Satish HURTADO Interpreted: Guerda Dueñas MD on 08/27/2016 at 10: 32 X-RAY CHEST ONE VIEW, PORTABLE IMPRESSION: No significant change in pulmonary edema and/or diffuse bilateral pneumonia. Dictated by: Satish HURTADO Interpreted: Virgen Yee MD on 08/28/2016 at 8: 57 X-RAY CHEST ONE VIEW, PORTABLE IMPRESSION: No significant change from prior examination suggesting pulmonary edema and/or diffuse bilateral pneumonia. Dictated by: Satish HURTADO Interpreted: Guerda Dueñas MD on 08/29/2016 at 10:03 X-RAY CHEST ONE VIEW, PORTABLE IMPRESSION: 1. Diffuse pulmonary edema and/or bilateral pneumonia similar prior examination. 2. Bilateral pleural effusions, left greater than right and loculated of the left effusion and/or developing empyema cannot be excluded. If indicated CT could be performed for further assessment. Dictated by: Satish HURTADO Interpreted: Virgen Yee MD on 08/30/2016 at 9: 03 X-RAY CHEST ONE VIEW, PORTABLE IMPRESSION: Bilateral pleural effusions and pulmonary radiopacities, overall unchanged when compared with yesterday's study. Dictated by: Guerda Dueñas M.D. on 08/31/2016 at 8:29 X-RAY CHEST ONE VIEW, PORTABLE IMPRESSION: 1. Pulmonary edema and/or diffuse bilateral pneumonia not significantly changed from prior examination. Developing ARDS cannot be excluded. 2. Small effusions. 3. Cardiomegaly redemonstrated. Dictated by: Satish HURTADO Interpreted: Darin Fonseca MD on 09/02/2016 at 11:39 X-RAY CHEST ONE VIEW, PORTABLE IMPRESSION: Persistent pulmonary edema. Dictated by: Gaby Vann M.D. on 09/03/2016 at 8:40 Cardiac Echo Impressions . Echocardiogram Report Interpretation Summary: 1) Mild concentric left ventricular hypertophy with mild dilatation and severely reduced systolic function (EF 20-25%). 2) Mildly dilated right ventricle with moderately reduced function. 3) Anterolateral wall is severely hypokinetic and the entire apex is akinetic. Rest of the umanzor are mildly hypokinetic. 4) Age related calcification of the aortic and mitral valves present but no significant stenosis or regurgitation present. 5) Pulmonary hypertension present, estimated systolic pulmonary pressure of 62mmHg. 6) Compared to the Echo done 08/06/2012, LV function has decreased significantly from 55-60% to 2025% on today's study. Findings consistent with ischemic cardiomyopathy. Echocardiogram Report Interpretation Summary: The left ventricle is mildly dilated. Left ventricular systolic function is severely reduced. The ejection fraction is estimated to be 25-30%. There has been no significant change since the previous study. Compared to the prior exam , the left ventricular wall motion has not changed. The basal inferoseptal wall has the most preserved augmentation in comparison with rest of LV segments. The apical septum is preserved as well. The rest of LV is moderately to severely hypokinetic. The right ventricle is not well visualized. Right ventricular systolic function is mild to moderately reduced. Right ventricular systolic pressure is estimated to be 50 mmHg plus the clinically estimated CVP which cannot be estimated on this exam. There is mild to moderate mitral regurgitation. There is no other significant valvular heart disease. Additional Diagnostics US RENAL SONOGRAM IMPRESSION: 1. No hydronephrosis. 2. No ascites. Dictated by: Guerda Dueñas M.D. on 08/31/2016 at 13:13 Assessment & Plan Patient is a 76-year-old male with hypertension, type 2 diabetes mellitus, ADELA, hyperlipidemia, and CAD s/p CABG and stent placement presenting with shortness of breath and generalized weakness. Hospital day 9. 1. Acute kidney injury. Present on admission. Active -Multifactorial:initial SUBHA due to IV contrast for initial PE imaging study and cardiac cath, overdiuresis -Avoid nephrotoxins -IV fluids, normal saline gentle hydration -Hold Lasix -Follow with CMP -Nephrology following. Recommendations per nephrology appreciated -Status post dialysis yesterday with significant improvement, scheduled for dialysis again today most likely tomorrow 2. Acute on chronic congestive heart failure due to NSTEMI. Present on admission. Improving -Elevated Pro-BNP 5206. Imaging with evidence of pulmonary edema and cardiomegaly -Likely secondary to ischemia given initial ST-depressions on EKG -Cardiology consult, recommendations are appreciated -Echocardiogram showed EF 20-25%. Hypokinesis and anterior lateral wall, akinesis in the cardiac apex. Pulmonary hypertension. LV function is significantly decreased from prior echo 2012 -Repeat ECHO post-catheterization procedure continues to show a reduced systolic function though EF is now reported to be 25-30%, otherwise no significant change. -Holding diuresis given renal failure -Metoprolol succinate reduced from 50 mg twice a day to 25mg BID -CXR continues to show pulmonary edema, though improved -Holding hydralazine given low blood pressure. Will restart when BP allows 3. NSTEMI, acute. Present on admission. Improved -EKG as in #2 -Cardiac catheterization with stent placement to circumflex -Telemetry -Morphine and SL nitroglycerin PRN -Aspirin -Plavix -Rosuvastatin 20 mg daily 4. Acute hypoxemic respiratory failure. Present on admission. Resolved -Continues to require supplemental oxygen. Currently on nasal cannula with good saturations -Suspect secondary to above 5. Dyspnea, acute. Present on admission ongoing -Suspect secondary to #1. Chest CT angio without evidence of PE -Infectious etiology seems less likely, procalcitonin slightly elevated, trending down and clinically without fever, chills, cough though does have leukocytosis -Continue with supplemental oxygen 6. Leukocytosis. Present on admission. Ongoing -White count yuki from 12.1 admit to a peak of 19, currently trending down -Likely secondary to stress response. Infectious etiology less likely but also on differential -Continue to monitor daily CXR, Procal, WBC 7. Lactic acidosis, acute. Present on admission. Resolved -Likely secondary to hypoxemia and heart failure -Trended down from 2.7 on admit to 1.3 -Continue to monitor 8. Initially suspected urinary tract infection. Present on admission. Resolved - Urine showed 6-10 WBCs, no leukocyte esterase, negative nitrate - Urine culture negative to date - Ceftriaxone DC 9. Hyponatremia, acute. Present on admission. Improving - Sodium level 130 today from 124 after receiving HD -Likely secondary to CHF -Management per above 10. Hyperkalemia, acute. Present on admission. Ongoing -Likely secondary to SUBHA remains elevated -Continue to monitor with CMP 11. Coronary artery disease s/p CABG and stent, chronic. Present on admission -Aspirin, Plavix, statin as in #1 12. Type 2 diabetes mellitus, chronic. Present on admission. Stable -Hold home Januvia -Bedside blood glucose checks -Low dose Lispro correction 13. Hypertension, chronic. Present on admission -Hold lisinopril secondary to SUBHA and hyperkalemia 14. Dyslipidemia, chronic. Present on admission -Continue home dose rosuvastatin 20mg daily 15. ADELA, chronic. Present on admission -Uses CPAP at home 16. Obesity, chronic. BMI 30 17. Anxiety, chronic. Present on admission. Ongoing - Restart home diazepam 5 mg three times a day Disposition: Patient remain inpatient status in [facility]. Worsening renal function and continued pulmonary edema. Responded well to dialysis today will continue with dialysis tomorrow and most likely the next day Pain Evaluation: Adequate Pain Control VTE Prophylaxis: Sub-Q Heparin (Unfractionated) VTE Mechanical Devices: Intermittant Pneumatic CD Resuscitation Status: CPR: Attempt Resuscitation Attending Statement The patient was seen and examined together with Dr. Arana on 09/03/2016 and I agree with the history, exam and plan as outlined in the note above. . ROMAIN ARANA DO Sep 03, 2016 11:35 Hector Sarkar MD Sep 06, 2016 07:15
--- NOTE | 2016-09-03 13:40 | PCM.PNNEPH ---
Subjective Date of Service Sep 03, 2016 Subjective The patient is eating breakfast without issue. The patient denies abdominal pain or distention. The states that the patient still has not had a bowel movement but she believes his mentation is significantly improved from yesterday. Exam Vital Signs Vital Sign - Last Date Time Temp Pulse Resp B/P Pulse Ox O2 Delivery O2 Flow Rate FiO2 09/03/16 13:00 84 09/03/16 12:12 36.8 14 104/68 96 CPAP 5.00 Intake and Output 09/02/16 09/02/16 09/03/16 Cumulative From/Thru 15:00 23:00 07:00 08/25/16 06:10 - 09/03/16 06:02 Intake Total 1433 ml 750 ml 607 ml 45594 ml Output Total 300 ml 80 ml 94350 ml Balance 1133 ml 670 ml 607 ml -956 ml Intake Oral 200 ml 100 ml 5002 ml IV Total 1233 ml 650 ml 607 ml 5547 ml Output Urine Total 300 ml 80 ml 41383 ml Ultrafiltrate 0 ml 0 ml # Bowel Movements 0 Exam General: Ill-appearing, no distress, well-developed, well-nourished, alert and cooperative Eyes: PERRLA, anicteric sclera, pale conjunctiva HENT: Normocephalic, atraumatic. External ears without defect. moist mucus membranes without central cyanosis Neck: Thick, supple, mild JVD noted Cardiovascular: Regular rate and rhythm with no murmurs, rubs, or gallops appreciated Pulmonary: Crackles improved from yesterday but remain in the bases bilaterally. Normal respiratory effort with no use of accessory muscles. Abdomen: Bowel tones present. Soft, nontender, moderate distention. Extremities: Mild bilateral lower extremity edema. Right knee with healing surgical incision. right femoral dialysis catheter without : beckett in place Skin Warm and dry Neurological: Cranial nerves grossly intact, able to move all extremities Psychiatric: flat affect, normal mood Lab and Diagnostics Result Diagram: 09/03/16 0240 09/03/16 0240 Microbiology Urine culture no growth- final Blood culture no growth 5 days- final MRSA screen negative- final X-Rays, CTs and MRIs CT ANGIO CHEST PULMONARY EMBOLISM IMPRESSION: No evidence of pulmonary embolism. Small bilateral pleural effusions with adjacent atelectasis. Rounded focus of low attenuation seen within the left fissure likely loculated fluid (i.e. pseudotumor). Recommend continued followup with PA and lateral chest radiographs to document resolution after treatment. Scattered groundglass opacities and mild interlobular septal thickening suggesting pulmonary edema. Please correlate clinically. Cardiomegaly and reflux of contrast into the IVC and hepatic veins, which suggests decreased cardiac output. Dictated and approved by: Darin Fonseca M.D. on 08/25/2016 at 8:06 X-RAY CHEST ONE VIEW, PORTABLE IMPRESSION: Patchy bibasilar consolidation, and focal opacity in the left midlung. This is better characterized on comparison CTA chest dated same day. Please see report. Dictated and approved by: Darin Fonseca M.D. on 08/25/2016 at 9:05 X-RAY CHEST ONE VIEW, PORTABLE IMPRESSION: Worsening pulmonary edema and/or diffuse bilateral pneumonia. Dictated by: Satish HURTADO Interpreted: Guerda Dueñas MD on 08/27/2016 at 10: 32 X-RAY CHEST ONE VIEW, PORTABLE IMPRESSION: No significant change in pulmonary edema and/or diffuse bilateral pneumonia. Dictated by: Satish HURTADO Interpreted: Virgen Yee MD on 08/28/2016 at 8: 57 X-RAY CHEST ONE VIEW, PORTABLE IMPRESSION: No significant change from prior examination suggesting pulmonary edema and/or diffuse bilateral pneumonia. Dictated by: Satish HURTADO Interpreted: Guerda Dueñas MD on 08/29/2016 at 10:03 X-RAY CHEST ONE VIEW, PORTABLE IMPRESSION: 1. Diffuse pulmonary edema and/or bilateral pneumonia similar prior examination. 2. Bilateral pleural effusions, left greater than right and loculated of the left effusion and/or developing empyema cannot be excluded. If indicated CT could be performed for further assessment. Dictated by: Satish HURTADO Interpreted: Virgen Yee MD on 08/30/2016 at 9: 03 X-RAY CHEST ONE VIEW, PORTABLE IMPRESSION: Bilateral pleural effusions and pulmonary radiopacities, overall unchanged when compared with yesterday's study. Dictated by: Guerda Dueñas M.D. on 08/31/2016 at 8:29 X-RAY CHEST ONE VIEW, PORTABLE IMPRESSION: 1. Pulmonary edema and/or diffuse bilateral pneumonia not significantly changed from prior examination. Developing ARDS cannot be excluded. 2. Small effusions. 3. Cardiomegaly redemonstrated. Dictated by: Satish Sharma [facility] Interpreted: Darin Fonseca MD on 09/02/2016 at 11:39 X-RAY CHEST ONE VIEW, PORTABLE IMPRESSION: Persistent pulmonary edema. Dictated by: Gaby Vann M.D. on 09/03/2016 at 8:40 Cardiac Echo Impressions . Echocardiogram Report Interpretation Summary: 1) Mild concentric left ventricular hypertophy with mild dilatation and severely reduced systolic function (EF 20-25%). 2) Mildly dilated right ventricle with moderately reduced function. 3) Anterolateral wall is severely hypokinetic and the entire apex is akinetic. Rest of the umanzor are mildly hypokinetic. 4) Age related calcification of the aortic and mitral valves present but no significant stenosis or regurgitation present. 5) Pulmonary hypertension present, estimated systolic pulmonary pressure of 62mmHg. 6) Compared to the Echo done 08/06/2012, LV function has decreased significantly from 55-60% to 2025% on today's study. Findings consistent with ischemic cardiomyopathy. Echocardiogram Report Interpretation Summary: The left ventricle is mildly dilated. Left ventricular systolic function is severely reduced. The ejection fraction is estimated to be 25-30%. There has been no significant change since the previous study. Compared to the prior exam , the left ventricular wall motion has not changed. The basal inferoseptal wall has the most preserved augmentation in comparison with rest of LV segments. The apical septum is preserved as well. The rest of LV is moderately to severely hypokinetic. The right ventricle is not well visualized. Right ventricular systolic function is mild to moderately reduced. Right ventricular systolic pressure is estimated to be 50 mmHg plus the clinically estimated CVP which cannot be estimated on this exam. There is mild to moderate mitral regurgitation. There is no other significant valvular heart disease. Additional Diagnostics US RENAL SONOGRAM IMPRESSION: 1. No hydronephrosis. 2. No ascites. Dictated by: Guerda Dueñas M.D. on 08/31/2016 at 13:13 Plan Impression 76yoM with Systolic congestive heart failure and chronic kidney disease with multiple recent contrast studies including CT PE and cardiac catheterization. 1. Acute Kidney Injury on Chronic Kidney Failure 2. Mild Hypervolemia 3. Uremia with elevated uric acid and BUN 4. Hyponatremia 5. Hypochloremia 6. Hyperkalemia 7. Hypermagnesemia 8. Normocytic Anemia Plan: Plan: 1. Acute Kidney Injury on Chronic Kidney Failure - Likely a combination of kidney insults including multiple contrast studies over one week and over diuresis of heart failure. Right femoral dialysis catheter has placed on 09/02. - patients uremia/altered mental status is significantly improved from 09/02 after 1 round of dialysis treatment - Second round of ultrafiltration/hemodialysis should help treat all the numerous electrolyte abnormalities described above as well as the uremia and even improve the anemia by removing extra fluid. - Please avoid further nephrotoxic insults including further contrast studies, NSAIDS, ACEI/ARBs, or further diuretics. 2. Normocytic Anemia - likely multifactorial including iron deficiency and chronic kidney disease - consider giving IV Iron Sucrose which is well tolerated, if the patient's anemia does not improve with dialysis - monitor - consider blood transfusions with hemoglobin below 8 given cardiac issues including CAD with recent stent placement in the circumflex due to critical stenosis Cristi Bunch DO Sep 03, 2016 13:40
--- NOTE | 2016-09-03 16:55 | NUR ---
Mentation/respiratory Increasing lethargy this afternoon. Pt sleeping soundly. Briefly opens eyes to touch, but quickly falls back asleep without stimuli. Pt able to verbalize name and birthday after being questioned numerous times. Unable to identify location or state current year. Denies pain. Oxygen saturation > 92% on home CPAP unit with 6L 02. Lungs diminished with crackles. No cough. SR per equipment monitor phototypesetting. Normotensive. Dialyzed without complications. Dr Zuniga notified of change in patient status. ABGs drawn and reviewed by Dr Zuniga. No new orders at this time.
--- NOTE | 2016-09-03 17:04 | ABG ---
DateTimeAnalyzed 16:59:00 -_ pH ____7.384 - 7.350 7.450 pCO2 ___48.5__ -mmHg 35.0 45.0 pO2 ___73.2__ -mmHg 69.0 116 HCO3- ___28.3__ -mmol/L 22.0 26.0 ABE ____3.4__ -mmol/L -2.0 2.0 tHb ____8.0__ -g/dL O2Hb ___92.1__ -% COHb ____1.8__ -% MetHb ____0.9__ -% sO2 ___94.7__ -% 25.0 FIO2 ___55.0__ -% CPAP ____6.0__ -cmH2O Drawn By jmw - Date/Time Notified____ 17:03:00 -_ Oxygen Device 1 ____BIPAP - Notified By jmw - Notified Whom ___DR JC - B 757 -mmHg tO2 ___10.5__ -Vol% Janes test _Positive -
--- NOTE | 2016-09-03 17:08 | NUR ---
Dialysis note: 3 1/2 hrs tx 1000 ml net UF Right femoral catheter, dsg dry and intact Pls see DTR for VS details Qb 300 Heparin prime given CPAP on with 8L O2 bleed in, sat 90-100% Tolerated treatment Catheter flushed, heparin dwelled and secured Stable condition at end of tx Report given to Porsche DAVILA
[2016-09-04] VITALS (7 sets, daily range): BP systolic 69–108; BP diastolic 43–85; PULSE 97–101; RESP 18–20; O2SAT 56–98
[2016-09-04] MEDS: 0.9% Sodium Chloride 1,000 ML IV SCH (00:21)
[2016-09-04] MEDS: Sodium Chloride LOK Flush 10 mL Syringe IVFLUSH SCH (00:21)
[2016-09-04 02:59] LABS: BASOPHILS % (AUTO) 0.2 % (0-3); EOSINOPHILS % (AUTO) 0.3 % (0-5); MONOCYTES % (AUTO) 15.7 % (4-12); Mean Corpuscular Hemoglobin 28.2 pg (27.0-35.0); Mean Corpuscular Volume 93.4 fL (81-100); NEUTROPHILS % (AUTO) 70.5 % (40-74); Platelet Count 410 bil/L (150-400)
[2016-09-04 03:22] LABS: Magnesium 2.2 mg/dL (1.6-2.6)
[2016-09-04] MEDS: Heparin 5,000 Unit/mL Inj SUBQ SCH (05:55)
--- NOTE | 2016-09-04 06:48 | NUR ---
mentation/pain pt with brief times of confusion mostly where he is, why he is here, and time. able to orientated pt somewhat most of the time, pt very thirsty this shift drinking 1600cc of water, pt tolerating well, but only putting 75cc of urine out of beckett, pt is supposed to get dialyzed today.tele SR pt c/o pain in his right knee pain medication given x2
[2016-09-04] MEDS ORDERED: Phenylephrine 20 mg/250 mL D5W IV SCH ×2 (08:25)
--- NOTE | 2016-09-04 08:30 | PCM.EDPN ---
ED Note Date of Service Sep 04, 2016 I responded immediately to a CODE BLUE overhead at 0751 to room 2010 on [facility]. As I entered the patient room there were many, many individuals present. Dr. Jeff Arana was in charge. I asked him if he would like my assistance and he said that he would. I stood at his side and reviewed the case briefly with him. My understanding was that this is a hemodialysis patient who slept most of the day yesterday and today became pulseless this morning with agonal respirations and CPR was instituted. CPR was ongoing from the time I entered the room Dr. Arana informed me that CPR had been continuous for approximately 3 minutes prior to my arrival in the room. No shocks administered, 1 dose of epinephrine I believe, had been administered. Gye-wfnwz-syut ventilation was being administered by respiratory therapy. Because of ongoing CPR, immediate intubation seemed appropriate. I allowed Dr. Arana to continue managing the code while I attended to the airway. After succinylcholine (that seemed safe to administer given the known potassium level of 4.4 this morning) and etomidate at doses of 120 mg and 20 mg respectively were administered IV the patient was easily intubated with the assistance of GlideScope with a 7.5 tube. Tube confirmation was via direct visualization and chloro-metric change on the CO2 detector. CPR was discontinued for intubation and pulse in the carotid artery was detected at this time with a blood pressure of 82/p. At this point I deferred code supervision to Dr. Hector Sarkar who was present in the room and who agreed to assume care so that I could return to the emergency department as I am the only physician on duty at this time. Bryson Cullen MD Sep 04, 2016 08:29
--- NOTE | 2016-09-04 08:32 | ABG ---
DateTimeAnalyzed 08:29:00 -_ pH ____7.183 - 7.350 7.450 pCO2 ___43.7__ -mmHg 35.0 45.0 pO2 ___55.3__ -mmHg 69.0 116 HCO3- ___15.8__ -mmol/L 22.0 26.0 ABE __-11.3__ -mmol/L -2.0 2.0 tHb ____7.9__ -g/dL O2Hb ___76.4__ -% COHb ____1.3__ -% MetHb ____0.9__ -% sO2 ___78.1__ -% 25.0 FIO2 __100.0__ -% PRVC 500 - CPAP ____6.0__ -cmH2O PEEP ____5.0__ -cmH2O Set_RR ___20.0__ -b/min Drawn By jmw - Date/Time Notified____ 08:32:00 -_ Oxygen Device 1 ____BIPAP - Notified By jmw - Notified Whom DR MIRIAM - B 757 -mmHg tO2 ____8.6__ -Vol% Janes test _Positive -
--- NOTE | 2016-09-04 08:45 | DRSVH ---
PROCEDURE: X-RAY CHEST ONE VIEW, PORTABLE ([id number]) INDICATIONS: post intubation TECHNIQUE: One view of the chest was acquired. COMPARISON: [facility], CR, XR CHEST 1VW (PORTABLE), 09/04/2016, 5:03. FINDINGS: Surgical changes and devices: ET tube is in place which projects approximately 3.4 cm superior to the gregorio. Lungs and pleura: Small bilateral pleural effusions are noted which are not significantly changed com pared to the prior examination.. Bilateral perihilar opacities compatible with pulmonary edema which is not significantly changed compared to prior examination.. Mediastinum: Mediastinal contours appear normal. Heart size is normal. Bones and chest wall: No suspicious bony lesions. Overlying soft tissues appear unremarkable. IMPRESSION: ET tube projects approximately 3.4 cm superior to the gregorio. Dictated by: Cecilia Elise MD, PhD on 09/04/2016 at 8:42 Approved by: Cecilia Elise MD, PhD on 09/04/2016 at 8:43
[2016-09-04 08:53] LABS: BASOPHILS % (AUTO) 0.4 % (0-3); EOSINOPHILS % (AUTO) 0.4 % (0-5); MONOCYTES % (AUTO) 9.7 % (4-12); Mean Corpuscular Volume 95.1 fL (81-100); NEUTROPHILS % (AUTO) 49.7 % (40-74); Platelet Count 390 bil/L (150-400)
[2016-09-04] MEDS ORDERED: Heparin 25,000 Unit/500 mL 0.45% NS Premix IV ONE (08:53)
[2016-09-04] MEDS ORDERED: Midazolam 100 mg/100 mL Premix IV PRN (09:00)
[2016-09-04] MEDS ORDERED: Cisatracurium 200,000 mCg/100 mL NS IV PRN ×2 (09:00)
[2016-09-04] MEDS ORDERED: Heparin 25K Unit/500mL 0.45 NS 25,000 UNIT in IV Premix 1 EACH IV SCH (09:00)
[2016-09-04] MEDS ORDERED: Heparin Initial Bolus IVPUSH ONE (09:00)
[2016-09-04] MEDS ORDERED: Heparin Protocol Boluses IVPUSH PRN (09:00)
[2016-09-04 09:20] LABS: Magnesium 4.1 mg/dL (1.6-2.6)
[2016-09-04] MEDS ORDERED: Norepinephrine 8,000 mCg/250 mL NS Premix IV ONE (09:23)
[2016-09-04 09:30] LABS: TROPONIN T 4.97 ug/L (0.0-0.011)
[2016-09-04] MEDS ORDERED: Vasopressin 20 Units/100 mL NS IV PRN ×2 (09:30)
[2016-09-04] MEDS ORDERED: Sodium Bicarb (50 mEq) 8.4% 1 mEq/mL 50 mL Syringe ONE (09:31)
[2016-09-04] MEDS ORDERED: Insulin Human REGular-Omnicell 100 Unit/mL ONE (09:32)
[2016-09-04] MEDS ORDERED: Albuterol 2.5 mg/3 mL Inhalation Solution NEB ONE (09:33)
--- NOTE | 2016-09-04 09:39 | PCM.PNMED ---
Subjective Date of Service Sep 04, 2016 Subjective Patient is a 76-year-old male with hypertension, type 2 diabetes mellitus, ADELA, hyperlipidemia, and CAD s/p CABG and stent placement admitted for shortness of breath and generalized weakness. He underwent cardiac catheterization with subsequent BLAS to proximal circumflex. Hospital day 10 Overnight: Patient received second round of dialysis yesterday. Reportedly somnolent throughout the night, difficult to arouse. Per telemetry only alarms were one desaturation event heart rate remained in sinus rhythm in the 90s. Per nursing no reported events aside from increase in somnolence. Today: At start of shift telemetry reported patient had bigeminal PVCs. Monitor room patient was awake and alert stating that he did not have any chest pain he just felt very bad overall. Within minutes patient went into V. fib arrest CODE LEENA was called. Patient received CPR immediately. Continual for 10 minutes. Patient received 2 rounds of epinephrine, 300 mg amiodarone, 2 mg magnesium and one defibrillating shock. Patient was intubated and placed on ventilator by ED physician. Return of spontaneous circulation after 10 minutes of CPR, patient upgraded to CCU status where he remains at the time of this dictation. Exam Vital Signs Vital Sign - Last Date Time Temp Pulse Resp B/P Pulse Ox O2 Delivery O2 Flow Rate FiO2 09/04/16 08:42 103 108/85 88 100 09/04/16 04:13 36.6 18 CPAP 7.00 Intake and Output 09/03/16 09/03/16 09/04/16 Cumulative From/Thru 15:00 23:00 07:00 08/25/16 06:10 - 09/04/16 06:19 Intake Total 200 ml 833 ml 2211 ml 29066 ml Output Total 1100 ml 175 ml 75 ml 70095 ml Balance -900 ml 658 ml 2136 ml 938 ml Intake Oral 200 ml 240 ml 1600 ml 7042 ml IV Total 593 ml 611 ml 6751 ml Output Urine Total 100 ml 175 ml 75 ml 49539 ml Ultrafiltrate 1000 ml 1000 ml # Bowel Movements 0 Exam Patient examination performed post CODE BLUE General: Patient intubated and sedated. HEENT: ET tube in place. Cardiovascular: Tachycardic rate, irregular. No murmurs appreciated though difficult to appreciated secondary to ambient noise. Pulmonary: Bilateral crackles upper anterior lobes though good air movement good breath sounds bilaterally. Abdomen: Soft to palpation, distended, no rigidity Extremities: Lower extremity edema to ankles Skin: Cool to touch, pale, diaphoresis Neurological: Intubated and sedated IVs and Medications Medications Reviewed: Medications were reviewed in detail Lab and Diagnostics Result Diagram: 09/04/16 0810 09/04/16 0810 Microbiology Urine culture no growth- final Blood culture no growth 5 days- final MRSA screen negative- final X-Rays, CTs and MRIs CT ANGIO CHEST PULMONARY EMBOLISM IMPRESSION: No evidence of pulmonary embolism. Small bilateral pleural effusions with adjacent atelectasis. Rounded focus of low attenuation seen within the left fissure likely loculated fluid (i.e. pseudotumor). Recommend continued followup with PA and lateral chest radiographs to document resolution after treatment. Scattered groundglass opacities and mild interlobular septal thickening suggesting pulmonary edema. Please correlate clinically. Cardiomegaly and reflux of contrast into the IVC and hepatic veins, which suggests decreased cardiac output. Dictated and approved by: Darin Fonseca M.D. on 08/25/2016 at 8:06 X-RAY CHEST ONE VIEW, PORTABLE IMPRESSION: Patchy bibasilar consolidation, and focal opacity in the left midlung. This is better characterized on comparison CTA chest dated same day. Please see report. Dictated and approved by: Darin Fonseca M.D. on 08/25/2016 at 9:05 X-RAY CHEST ONE VIEW, PORTABLE IMPRESSION: Worsening pulmonary edema and/or diffuse bilateral pneumonia. Dictated by: Satish HURTADO Interpreted: Guerda Dueñas MD on 08/27/2016 at 10: 32 X-RAY CHEST ONE VIEW, PORTABLE IMPRESSION: No significant change in pulmonary edema and/or diffuse bilateral pneumonia. Dictated by: Satish HURTADO Interpreted: Virgen Yee MD on 08/28/2016 at 8: 57 X-RAY CHEST ONE VIEW, PORTABLE IMPRESSION: No significant change from prior examination suggesting pulmonary edema and/or diffuse bilateral pneumonia. Dictated by: Satish HURTADO Interpreted: Guerda Dueñas MD on 08/29/2016 at 10:03 X-RAY CHEST ONE VIEW, PORTABLE IMPRESSION: 1. Diffuse pulmonary edema and/or bilateral pneumonia similar prior examination. 2. Bilateral pleural effusions, left greater than right and loculated of the left effusion and/or developing empyema cannot be excluded. If indicated CT could be performed for further assessment. Dictated by: Satish HURTADO Interpreted: Virgen Yee MD on 08/30/2016 at 9: 03 X-RAY CHEST ONE VIEW, PORTABLE IMPRESSION: Bilateral pleural effusions and pulmonary radiopacities, overall unchanged when compared with yesterday's study. Dictated by: Guerda Dueñas M.D. on 08/31/2016 at 8:29 X-RAY CHEST ONE VIEW, PORTABLE IMPRESSION: 1. Pulmonary edema and/or diffuse bilateral pneumonia not significantly changed from prior examination. Developing ARDS cannot be excluded. 2. Small effusions. 3. Cardiomegaly redemonstrated. Dictated by: Satish HURTADO Interpreted: Darin Fonseca MD on 09/02/2016 at 11:39 X-RAY CHEST ONE VIEW, PORTABLE IMPRESSION: Persistent pulmonary edema. Dictated by: Gaby Vann M.D. on 09/03/2016 at 8:40 Cardiac Echo Impressions . Echocardiogram Report Interpretation Summary: 1) Mild concentric left ventricular hypertophy with mild dilatation and severely reduced systolic function (EF 20-25%). 2) Mildly dilated right ventricle with moderately reduced function. 3) Anterolateral wall is severely hypokinetic and the entire apex is akinetic. Rest of the umanzor are mildly hypokinetic. 4) Age related calcification of the aortic and mitral valves present but no significant stenosis or regurgitation present. 5) Pulmonary hypertension present, estimated systolic pulmonary pressure of 62mmHg. 6) Compared to the Echo done 08/06/2012, LV function has decreased significantly from 55-60% to 2025% on today's study. Findings consistent with ischemic cardiomyopathy. Echocardiogram Report Interpretation Summary: The left ventricle is mildly dilated. Left ventricular systolic function is severely reduced. The ejection fraction is estimated to be 25-30%. There has been no significant change since the previous study. Compared to the prior exam , the left ventricular wall motion has not changed. The basal inferoseptal wall has the most preserved augmentation in comparison with rest of LV segments. The apical septum is preserved as well. The rest of LV is moderately to severely hypokinetic. The right ventricle is not well visualized. Right ventricular systolic function is mild to moderately reduced. Right ventricular systolic pressure is estimated to be 50 mmHg plus the clinically estimated CVP which cannot be estimated on this exam. There is mild to moderate mitral regurgitation. There is no other significant valvular heart disease. Additional Diagnostics US RENAL SONOGRAM IMPRESSION: 1. No hydronephrosis. 2. No ascites. Dictated by: Guerda Dueñas M.D. on 08/31/2016 at 13:13 Assessment & Plan Patient is a 76-year-old male with hypertension, type 2 diabetes mellitus, ADELA, hyperlipidemia, and CAD s/p CABG and stent placement presenting with shortness of breath and generalized weakness. Hospital day 10. 1. Acute kidney injury. Present on admission. Active -Multifactorial:initial SUBHA due to IV contrast for initial PE imaging study and cardiac cath, overdiuresis -Avoid nephrotoxins -IV fluids, normal saline gentle hydration -Hold Lasix -Follow with CMP -Nephrology following. Recommendations per nephrology appreciated -Status post dialysis yesterday with significant improvement, scheduled for dialysis again today most likely tomorrow 2. Acute on chronic congestive heart failure due to NSTEMI. Present on admission. Improving -Elevated Pro-BNP 5206. Imaging with evidence of pulmonary edema and cardiomegaly -Likely secondary to ischemia given initial ST-depressions on EKG -Cardiology consult, recommendations are appreciated -Echocardiogram showed EF 20-25%. Hypokinesis and anterior lateral wall, akinesis in the cardiac apex. Pulmonary hypertension. LV function is significantly decreased from prior echo 2012 -Repeat ECHO post-catheterization procedure continues to show a reduced systolic function though EF is now reported to be 25-30%, otherwise no significant change. -Holding diuresis given renal failure -Metoprolol succinate reduced from 50 mg twice a day to 25mg BID -CXR continues to show pulmonary edema, though improved -Holding hydralazine given low blood pressure. Will restart when BP allows 3. NSTEMI, acute. Present on admission. Improved -EKG as in #2 -Cardiac catheterization with stent placement to circumflex -Telemetry -Morphine and SL nitroglycerin PRN -Aspirin -Plavix -Rosuvastatin 20 mg daily 4. Acute hypoxemic respiratory failure. Present on admission. Resolved -Continues to require supplemental oxygen. Currently on nasal cannula with good saturations -Suspect secondary to above 5. Dyspnea, acute. Present on admission ongoing -Suspect secondary to #1. Chest CT angio without evidence of PE -Infectious etiology seems less likely, procalcitonin slightly elevated, trending down and clinically without fever, chills, cough though does have leukocytosis -Continue with supplemental oxygen 6. Leukocytosis. Present on admission. Ongoing -White count yuki from 12.1 admit to a peak of 19, currently trending down -Likely secondary to stress response. Infectious etiology less likely but also on differential -Continue to monitor daily CXR, Procal, WBC 7. Lactic acidosis, acute. Present on admission. Resolved -Likely secondary to hypoxemia and heart failure -Trended down from 2.7 on admit to 1.3 -Continue to monitor 8. Initially suspected urinary tract infection. Present on admission. Resolved - Urine showed 6-10 WBCs, no leukocyte esterase, negative nitrate - Urine culture negative to date - Ceftriaxone DC 9. Hyponatremia, acute. Present on admission. Improving - Sodium level 130 today from 124 after receiving HD -Likely secondary to CHF -Management per above 10. Hyperkalemia, acute. Present on admission. Ongoing -Likely secondary to SUBHA remains elevated -Continue to monitor with CMP 11. Coronary artery disease s/p CABG and stent, chronic. Present on admission -Aspirin, Plavix, statin as in #1 12. Type 2 diabetes mellitus, chronic. Present on admission. Stable -Hold home Januvia -Bedside blood glucose checks -Low dose Lispro correction 13. Hypertension, chronic. Present on admission -Hold lisinopril secondary to SUBHA and hyperkalemia 14. Dyslipidemia, chronic. Present on admission -Continue home dose rosuvastatin 20mg daily 15. ADELA, chronic. Present on admission -Uses CPAP at home 16. Obesity, chronic. BMI 30 17. Anxiety, chronic. Present on admission. Ongoing - Restart home diazepam 5 mg three times a day Disposition: Patient remain inpatient status in [facility]. Worsening renal function and continued pulmonary edema. Responded well to dialysis today will continue with dialysis tomorrow and most likely the next day VTE Prophylaxis: Sub-Q Heparin (Unfractionated) VTE Mechanical Devices: Intermittant Pneumatic CD Resuscitation Status: CPR: Attempt Resuscitation ROMAIN PINEDA DO Sep 04, 2016 09:39 Resuscitation Status: CPR: Attempt Resuscitation ROMAIN PINEDA DO Sep 04, 2016 09:39
--- NOTE | 2016-09-04 10:05 | DRSVH ---
PROCEDURE: X-RAY CHEST ONE VIEW, PORTABLE ([id number]) INDICATIONS: monitor Pulm Edema TECHNIQUE: One view of the chest was acquired. COMPARISON: [facility], CR, XR CHEST 1VW (PORTABLE), 09/03/2016, 5:13. [facility], CR, XR CHEST 1VW (PORTABLE), 09/02/2016, 10:51. FINDINGS: Surgical changes and devices: Sternotomy wires, presume prior CABG. Lungs and pleura: No pleural effusions or pneumothorax. Lungs are abnormal with bilateral pneumonia , previously present and without appreciable worsening. Mediastinum: Mediastinal contours appear normal. Heart size is normal. Bones and chest wall: No suspicious bony lesions. Overlying soft tissues appear unremarkable. IMPRESSION: Prior CABG, bilateral pneumonia stable over time. Dictated by: Sim Morgan M.D. on 09/04/2016 at 9:52 Approved by: Sim Morgan M.D. on 09/04/2016 at 10:04
--- NOTE | 2016-09-04 10:23 | ABG ---
DateTimeAnalyzed 10:13:59 -_ pH ____7.258 - pCO2 ___41.7__ -mmHg pO2 ___45.6__ -mmHg HCO3- ___18.6__ -mmol/L ABE ___-7.7__ -mmol/L tHb ____7.3__ -g/dL O2Hb ___70.5__ -% COHb ____2.0__ -% MetHb ____0.1__ -% sO2 ___72.0__ -% FIO2 __100.0__ -% Drawn By as - Date/Time Notified____ 10:22:00 -_ Oxygen Device 1 _AMBU BAG - Notified By ams - Notified Whom Dr Antonina - B 756 -mmHg K+ ____4.9__ -mmol/L tO2 ____7.3__ -Vol% Janes test N/A -
[2016-09-04] MEDS ORDERED: Succinylcholine Chloride 20 mg/mL 5 mL Inj ONE (10:29)
[2016-09-04] MEDS ORDERED: Amiodarone 50 mg/mL 3 mL Inj ONE (10:29)
[2016-09-04] MEDS ORDERED: EPHEDrine/NS 5 mg/mL 5 mL Syringe ONE (10:29)
[2016-09-04] MEDS ORDERED: 0.9% Sodium Chloride 10 mL Inj ONE (10:29)
[2016-09-04] MEDS ORDERED: MAGNESIUM SULFATE IV ONE (10:29)
--- NOTE | 2016-09-04 11:26 | CONS ---
[address] [address] CONSULTATION REPORT PATIENT: NISHI BOSWELL : 1940 MR#: [id number] ADMIT: 08/25/2016 JOB ID: [id number] DATE OF SERVICE: 09/04/2016 CARDIOLOGY CONSULTATION: REASON FOR CONSULTATION: Post cardiac arrest, critical care management and ongoing hypoxia. REFERRING PHYSICIAN: Dr. Hector Sarkar. Dear Dr. Sarkar: Thanks for asking me to see the patient. The patient is a 76-year-old gentleman who was admitted about 10 days ago with the concern of shortness of breath and generalized weakness. He was noted to have concern of cardiac event and he subsequently did undergo cardiac catheterization and required stenting of proximal circumflex artery and post catheterization and stenting patient was hemodynamically stable but he was noted to have developed acute kidney injury and did require hemodialysis a day prior to this consultation. The patient was apparently today supposed to undergo ultrafiltration and he was seen by his family care physician and the resident involved in his care this morning and he communicated to the resident that he was noted to be somnolent and difficult to arouse but he was having some concern of not feeling well and complaining of somewhat shortness of breath and subsequently he stated that he is overall feeling very bad and within a few minutes from thereon he developed bigeminy rhythm followed by _v.fib cardiac arrest. Luna Rogers was called and the patient was resuscitated per ACLS protocol, after 10 min of CPR rate / rhythm was restored, and while being on 100% oxygen and ventilatory support, the patient was noted to be having ongoing concern of hypoxia with saturation in the range of 80s at that time. Critical care consultation was achieved in help of management of his shock and ongoing hypoxemic respiratory failure. On evaluation of the patient, he was arousable to stimuli and command but was not following any commands. At that time, he was also noted to have significant hypotension with blood pressure in the range of low 80s systolic, and at that time, he was suggested to be, in spite of being on norepinephrine and at the time vasopressin was suggested to be added on and some ventilatory changes were made on the vent and the patient's oxygenation fluctuated from high 80s to low 80s and a need for central line was advised and the patient did receive a left-sided triple lumen IJ catheter placement under ultrasound guidance by me. Subsequently the patient was also attempted to have femoral art line, but while preparation for this procedure, the patient again developed bradycardia. He never lost his pulse but he was requiring intermittent Atropine and epinephrine and his follow up labs after the cardiac arrest came back with sodium of 131, potassium of 7.4, while his initial morning labs this morning was potassium 4.4. Chloride post cardiac arrest was 91, bicarbonate of 19, BUN 48 and creatinine was 2.29. Glucose was 153. Calcium was 8.2. Magnesium 4.1 and total bili 0.5. AST 59, ALT 33, and troponin increased to 4.97. His white count was 16.3, hemoglobin 8.6, hematocrit 29.2 and platelets were 390. During this process, the patient continues to have fluctuating oxygenation and he was Ambu bagged for rest of the time and he was treated medically for his hyperkalemia with sodium bicarbonate IV push and calcium gluconate IV push x2 along with an amp of D50 followed by insulin 10 units IV push x2. He was also given 10 mg of albuterol nebulizer and regardless while all these measures were in process, the patient continues to have evidence of sinus bradycardia and nonsustained V-tach beats, although during this whole process, he never lost his pulse or did not require CPR. Subsequently, third vasopressor and epinephrine was added and all these pressors were running at the maximum dose and the patient continued to have intermittent episodes of bradycardia with response to IV epi push and saturations were unrecordable on the pulse ox monitor. Arterial blood gas analysis was done which revealed pH of 7.25, pCO2 42 and pO2 was 45, 100% FiO2 and while Ambu bagging the patient. At the time, the family was available at the bedside and I discussed the situation with the patient's and sons who were available at the bedside regarding his grave condition and extremely poor prognosis and continued unstable condition and the inability to have a meaningful stable hemodynamics or respiratory status in spite of maximum support. The patient's and son decided not to do CPR is warranted and subsequently after a short time they decided to keep him comfortable and withdraw support. At that time, the patient was given 4 mg of morphine followed by 2 mg of Ativan. All the vasopressors were stopped and after a short while the patient was also requested to be extubated for comfort and he was extubated and shortly thereafter he lost his rhythm and went into asystole and the patient was pronounced at that time. 120 minutes of critical care time provided in care of this patient and all that time was at the bedside in direct contact with the patient and this time does not include the procedure which was performed during this process. YOJANA
[2016-09-04] MEDS: Insulin LISPRO 300 Unit/3 mL Inj SUBQ SCH (11:29)
--- NOTE | 2016-09-04 11:47 | NUR ---
Code Ken Rogers called at 0750. Code team here. See Code Blue flow sheet. Continued working on patient on patient, coding until code called off, and patient was extubated to comfort. All drips stopped. Patient at 1030 with family present.
[2016-09-04 12:02] LABS: Creatine Kinase 142 U/L (21-232)
--- NOTE | 2016-09-04 12:50 | OP ---
[address] [address] OPERATIVE REPORT PATIENT: NISHI BOSWELL : 1940 MR#: [id number] ADMIT: 08/25/2016 JOB ID: [id number] DATE OF SURGERY: 09/04/2016 PREOPERATIVE DIAGNOSIS(ES): POSTOPERATIVE DIAGNOSIS(ES): SURGEON: Aurelio Villaseñor MD PROCEDURE: Left internal jugular triple lumen catheter placement. INDICATIONS: Need for vasopressors, status post cardiac arrest and shock. ESTIMATED BLOOD LOSS: Less than 5 mL. COMPLICATIONS NOTED: None. DESCRIPTION OF PROCEDURE: Procedure was done under ultrasound guidance. Initially, ultrasound was done for localization of the left IJ, and after initial localization, area was cleaned with ChloraPrep and draped aseptically. Then, 1% lidocaine was infiltrated into the soft tissue. Then, under the guidance of ultrasound, needle was inserted into the right IJ without any difficulty, then free venous flow as obtained. Then, the syringe was disconnected and guidewire threaded through the needle, and needle was withdrawn. Dilator was applied and withdrawn. Then, triple lumen catheter was threaded over the guidewire and guidewire was withdrawn. Good venous return was obtained from all , flushed with saline. Dilator was withdrawn about 4 cm at the site of insertion, and stabilization was done and aseptic dressing was done. Followup chest x-ray was ordered but could not be done because of patient's unstable condition and ongoing code status. No acute complications noted.
--- NOTE | 2016-09-04 12:58 | OP ---
[address] [address] OPERATIVE REPORT PATIENT: NISHI BOSWELL : 1940 MR#: [id number] ADMIT: 08/25/2016 JOB ID: [id number] DATE OF SURGERY: 09/04/2016 PREOPERATIVE DIAGNOSIS(ES): POSTOPERATIVE DIAGNOSIS(ES): SURGEON: Aurelio Villaseñor MD PROCEDURE: Attempted left femoral arterial line placement. ESTIMATED BLOOD LOSS: None. PROCEDURE DETAILS: Left femoral artery was initially localized with the help of ultrasound. Area was cleaned with ChloraPrep and draped aseptically. Needle was attempted to be inserted into the femoral art line without any success, and patient was noted to have evidence of bradycardia with barely minimal palpable pulses at the time. Procedure was terminated. Second attempted was again made after initial stabilization of the patient, but again procedure was failed to be continued because patient's unstable condition and ongoing bradycardia and very feeble pulses in spite of patient being on three pressors at the time. Femoral arterial line placement was aborted, and patient was attempted to continue to be resuscitated. Procedure was not done. No acute complications were noted.
--- NOTE | 2016-09-04 14:09 | NUR ---
Post Mortem Care Body prepped for morgue. Family to call back with home choice-- gave phone # to call back. Family left at 1400 with all personal belongings.
--- NOTE | 2016-09-04 17:06 | NUR ---
spiritual care; support to family at code and support to family as they received report from and then reentered room to be with pt as he passed. home, next steps discussion as family grieved.
--- NOTE | 2016-09-05 03:03 | PROG NOTE ---
[address] [address] PROGRESS NOTE PATIENT: NISHI BOSWELL : 1940 MR#: [id number] ADMIT: 08/25/2016 JOB ID: [id number] DATE: 09/04/2016 This morning the patient had VF cardiac arrest. He was successfully resuscitated. After cardioversion unfortunately after this event he has been requiring intubation. He was getting progressive clamminess and hypoxemia. He developed pulseless electrical activity cardiac arrest. He was aggressively treated with medications to counter hyperkalemia as well as pressors. Unfortunately after prolonged code family elected to proceed with comfort measures. On after a perfusing rhythm was established there was a question whether he would benefit from going to the woods lab[facility] and whether there was a problem with his stent to the circumflex. We have no compelling proof of that. His CK was normal as of September 04 at 8 o'clock in the morning. It is possible that there was acute stent problem, but there is no documentation to support that. Angiographic result was good. He has been getting uninterrupted dual antiplatelet therapy. His EKG showed no evidence of ST elevations including the code. The patient peacefully surrounded by his family and friends. Thank you for the opportunity to participate in his care.
--- NOTE | 2016-09-05 18:24 | PCM.DC.MEX ---
Discharge Summary Date of Service Sep 05, 2016 Dates of Hospitalization Date of Hospital Admission Aug 25, 2016 at 09:52 Date of Expiration: Sep 04, 2016 Time of Expiration: 10:30 Providers: Admitting Physician: Hector Sarkar MD Primary Care Physician: Sherley Tanner MD Attending Physician: Hector Sarkar MD Diagnosis at Time of 1. Acute kidney injury 2. Acute on chronic congestive heart failure due to NSTEMI 3. NSTEMI 4. Acute hypoxemic respiratory failure 5. Dyspnea 6. Leukocytosis 7. Lactic acidosis 8. Initially suspected urinary tract infection 9. Hyponatremia 10. Hyperkalemia 11. Coronary artery disease s/p CABG and stent 12. Type 2 diabetes mellitus 13. Hypertension 14. Dyslipidemia 15. ADELA 16. Anxiety Consultations Dr. Tara M.D., cardiology Dr. Alex M.D., cardiology Dr. Mikey M.D., pulmonology/intensive care [facility], cardiology Dr. Ruchi M.D., cardiology Dr. Charleen M.D., pulmonology/telephone lines repairer Dr. Rajiv D.O., nephrology Dr. Tony M.D., cardiology Procedures XRay, CTs & MRIs CT ANGIO CHEST PULMONARY EMBOLISM IMPRESSION: No evidence of pulmonary embolism. Small bilateral pleural effusions with adjacent atelectasis. Rounded focus of low attenuation seen within the left fissure likely loculated fluid (i.e. pseudotumor). Recommend continued followup with PA and lateral chest radiographs to document resolution after treatment. Scattered groundglass opacities and mild interlobular septal thickening suggesting pulmonary edema. Please correlate clinically. Cardiomegaly and reflux of contrast into the IVC and hepatic veins, which suggests decreased cardiac output. Dictated and approved by: Darin Fonseca M.D. on 08/25/2016 at 8:06 X-RAY CHEST ONE VIEW, PORTABLE IMPRESSION: Patchy bibasilar consolidation, and focal opacity in the left midlung. This is better characterized on comparison CTA chest dated same day. Please see report. Dictated and approved by: Darin Fonseca M.D. on 08/25/2016 at 9:05 X-RAY CHEST ONE VIEW, PORTABLE IMPRESSION: Worsening pulmonary edema and/or diffuse bilateral pneumonia. Dictated by: Satish HURTADO Interpreted: Guerda Dueñas MD on 08/27/2016 at 10: 32 X-RAY CHEST ONE VIEW, PORTABLE IMPRESSION: No significant change in pulmonary edema and/or diffuse bilateral pneumonia. Dictated by: Satish HURTADO Interpreted: Virgen Yee MD on 08/28/2016 at 8: 57 X-RAY CHEST ONE VIEW, PORTABLE IMPRESSION: No significant change from prior examination suggesting pulmonary edema and/or diffuse bilateral pneumonia. Dictated by: Satish HURTADO Interpreted: Guerda Dueñas MD on 08/29/2016 at 10:03 X-RAY CHEST ONE VIEW, PORTABLE IMPRESSION: 1. Diffuse pulmonary edema and/or bilateral pneumonia similar prior examination. 2. Bilateral pleural effusions, left greater than right and loculated of the left effusion and/or developing empyema cannot be excluded. If indicated CT could be performed for further assessment. Dictated by: Satish HURTADO Interpreted: Virgen Yee MD on 08/30/2016 at 9: 03 X-RAY CHEST ONE VIEW, PORTABLE IMPRESSION: Bilateral pleural effusions and pulmonary radiopacities, overall unchanged when compared with yesterday's study. Dictated by: Guerda Dueñas M.D. on 08/31/2016 at 8:29 X-RAY CHEST ONE VIEW, PORTABLE IMPRESSION: 1. Pulmonary edema and/or diffuse bilateral pneumonia not significantly changed from prior examination. Developing ARDS cannot be excluded. 2. Small effusions. 3. Cardiomegaly redemonstrated. Dictated by: Satish HURTADO Interpreted: Darin Fonseca MD on 09/02/2016 at 11:39 X-RAY CHEST ONE VIEW, PORTABLE IMPRESSION: Persistent pulmonary edema. Dictated by: Gaby Vann M.D. on 09/03/2016 at 8:40 Cardiac Echo Impression . Echocardiogram Report Interpretation Summary: 1) Mild concentric left ventricular hypertophy with mild dilatation and severely reduced systolic function (EF 20-25%). 2) Mildly dilated right ventricle with moderately reduced function. 3) Anterolateral wall is severely hypokinetic and the entire apex is akinetic. Rest of the umanzor are mildly hypokinetic. 4) Age related calcification of the aortic and mitral valves present but no significant stenosis or regurgitation present. 5) Pulmonary hypertension present, estimated systolic pulmonary pressure of 62mmHg. 6) Compared to the Echo done 08/06/2012, LV function has decreased significantly from 55-60% to 2025% on today's study. Findings consistent with ischemic cardiomyopathy. Echocardiogram Report Interpretation Summary: The left ventricle is mildly dilated. Left ventricular systolic function is severely reduced. The ejection fraction is estimated to be 25-30%. There has been no significant change since the previous study. Compared to the prior exam , the left ventricular wall motion has not changed. The basal inferoseptal wall has the most preserved augmentation in comparison with rest of LV segments. The apical septum is preserved as well. The rest of LV is moderately to severely hypokinetic. The right ventricle is not well visualized. Right ventricular systolic function is mild to moderately reduced. Right ventricular systolic pressure is estimated to be 50 mmHg plus the clinically estimated CVP which cannot be estimated on this exam. There is mild to moderate mitral regurgitation. There is no other significant valvular heart disease. Other Diagnostics US RENAL SONOGRAM IMPRESSION: 1. No hydronephrosis. 2. No ascites. Dictated by: Guerda Dueñas M.D. on 08/31/2016 at 13:13 Brief History History and physical per Dr.Ly D.O. on 08/25/2016 "Patient is a 76-year-old male with hypertension, type 2 diabetes mellitus, ADELA , hyperlipidemia, and CAD s/p CABG and stent placement presenting with shortness of breath and generalized weakness. The patient is accompanied by his family at bedside. Patient reports undergoing right knee arthroplasty on 2016 with subsequent weakness about 1-2 weeks following the surgery. He also reports substernal chest pressure and shortness of breath that started about 2 weeks ago. He says the chest pressure and shortness of breath is only noticeable with the use of his CPAP. He reports associated diaphoresis but denies nausea or radiation with the chest pain. Patient reports sleeping in his recliner to help with his breathing. He reports worsening weakness yesterday with the inability to get out of the recliner. Due to his profound weakness the patient had to crawl out of the recliner and up the stair to notify his for assistance. EMS was then summoned. His reports that the patient has had decreased intake over the past three days. Patient reports taking his medications as prescribed. Patient denies fever, chills, cough, emesis, abdominal pain. In the ED, vitals: temp 36.6, HR 105, RR 19 satting 99% on 5L oxy mask, BP 105/ 78. Notable labs: WBC 11.8, Na 129, K 5.9, Cl 93, CO2 16, BUN 38, Creatinine 1.64, glucose 218. Troponin 0.925, 1.16. Pro-BNP 5206. Lactic acid 2.7. Chest x- ray reads patchy bibasilar consolidation and focal opacity in the left midlung. CT chest angio shows no evidence of pulmonary embolism; small bilateral pleural effusions; rounded focus of low attenuation seen within the left fissure likely loculated fluid; scattered groundglass opacities and mild interlobular septal thickening suggesting pulmonary edema; cardiomegaly and reflux of contrast into the IVC and hepatic veins, suggestive of decreased cardiac output." Hospital Course Brief History of events leading up to : Mr. Morgan was admitted for shortness fo breath and chest pressure. He was brought to the [address] and was almost intubated for this procedure though he was able to receive stent placement while remaining on BiPAP. Throughout his hospital stay he remained oxygen dependant, either requiring BiPAP, oxymask or at times nasal cannula. Daily CXR showed pulmonary edema and for this reason as well as his heart history he was aggressively diuresed. Unfortunately his kidney function worsened throughout his stay and he was started on daily dialysis, receiving two treatments in total. On the morning of September 04 Mr. Morgan began to have bigeminal PVC's. within minutes of this finding he went into V-fib cardiac arrest. CPR was successful and he achieved return of spontaneous circulation, though within the hour he again had a V-fib cardiac arrest followed by PEA. Family was brought to bed side during CODE and the decision was made by Mr. Perez to stop CPR and allow Mr. Morgan to pass peacefully. Family remained at bedside to say their goodbyes. 1. Acute kidney injury -Multifactorial:initial SUBHA due to IV contrast for initial PE imaging study and cardiac cath, overdiuresis -Avoided nephrotoxins -IV fluids with normal saline gentle hydration -Hold Lasix -Follow with CMP -Nephrology following. Recommendations per nephrology appreciated -HD daily 2. Acute on chronic congestive heart failure due to NSTEMI -Elevated Pro-BNP 5206. Imaging with evidence of pulmonary edema and cardiomegaly -Likely secondary to ischemia given initial ST-depressions on EKG -Audiology followed patient throughout admission -Echocardiogram showed EF 20-25%. Hypokinesis and anterior lateral wall, akinesis in the cardiac apex. Pulmonary hypertension. LV function is significantly decreased from prior echo 2012 -Repeat ECHO post-catheterization procedure continues to show a reduced systolic function though EF is now reported to be 25-30%, otherwise no significant change. -Held additional diuresis given renal failure -Metoprolol succinate reduced from 50 mg twice a day to 25mg BID -CXR continues to show pulmonary edema, though improved -Held hydralazine given low blood pressure. 3. NSTEMI -EKG as in #2 -Cardiac catheterization with stent placement to circumflex -Telemetry throughout admission -Morphine and SL nitroglycerin PRN -Aspirin -Plavix -Rosuvastatin 20 mg daily 4. Acute hypoxemic respiratory failure -Continued to require supplemental oxygen throughout entire hospital stay, BiPAP oxygen mask and at times nasal cannula 5. Dyspnea -Suspected secondary to #1. Chest CT angio without evidence of PE -Infectious etiology seems less likely, procalcitonin slightly elevated, trending down and clinically without fever, chills, cough though did have leukocytosis 6. Leukocytosis -White count yuki from 12.1 admit to a peak of 19, trended down progressively -Likely secondary to stress response. Infectious etiology less likely but also on differential -Continued to monitor daily CXR, Procal, WBC 7. Lactic acidosis -Most likely likely secondary to hypoxemia and heart failure -On admit 2.7, trended down to normal levels 8. Initially suspected urinary tract infection - Urine showed 6-10 WBCs, no leukocyte esterase, negative nitrate - Urine culture negative -Initially given ceftriaxone, this was discontinued after UTI rule out 9. Hyponatremia - Sodium level remained low throughout stay despite hemodialysis -Likely secondary to CHF 10. Hyperkalemia -Likely secondary to SUBHA remained elevated throughout stay 11. Coronary artery disease s/p CABG and stent -Aspirin, Plavix, statin as in #1 12. Type 2 diabetes mellitus -Held home Januvia -Low dose Lispro correction 13. Hypertension -Held lisinopril secondary to SUBHA and hyperkalemia 14. Dyslipidemia -Continued home dose rosuvastatin 20mg daily 15. ADELA, chronic - Remained on BiPAP throughout most of stay 16. Obesity, chronic. BMI 30 17. Anxiety - Restarted home diazepam 5 mg three times a day Exam Test 08/25/16 06:00 08/25/16 12:40 08/25/16 18:11 08/26/16 03:30 Pro-B-Type Natriuretic Peptide 5206pg/mL (0-486) Hemoglobin A1c 6.5% (4.8-5.6) Triglycerides Level 111mg/dL (0-149) Cholesterol Level 106mg/dL (100-199) LDL Cholesterol, Calculated 49.800mg/dL (0-99) VLDL Cholesterol 22.200mg/dL HDL Cholesterol 34mg/dL (>39) Cholesterol/HDL Ratio 3.12 (0.0-4.4) Urine Culture Reflexed Indicated Test 08/29/16 03:23 09/01/16 03:00 09/02/16 11:19 09/02/16 15:35 Lactic Acid Level 1.3mmol/L (0.4-2.0) Iron Level 28ug/dL (35-150) Total Iron Binding Capacity 235ug/dL (250-450) Percent Iron Saturation 12%sat (15-50) Unsaturated Iron Binding 207.4ug/dL Globulin (PEP) 3.4g/dL (2.2-3.9) Albumin/Globulin Ratio 0.7 (0.7-1.7) Ivddf-7-Nqowpwwhn 0.5g/dL (0.0-0.4) Oubzc-3-Bbewxvssq 1.2g/dL (0.4-1.0) Beta Globulins 1.0g/dL (0.7-1.3) Gamma Globulins 0.8g/dL (0.4-1.8) Serum Monoclonal Protein Not observedg/dL Protein Electrophoresis Comment Comment (.) Protein Electrophoresis Interpret Comment (.) Thyroid Stimulating Hormone (TSH) 1.460uIU/mL (0.450-4.500) Hepatitis A IgM Antibody Negative (Negative) Hepatitis B Core IgM Antibody Negative (Negative) Hepatitis C Comment Comment (.) Prothrombin Time 11.8sec (8.1-12.5) Prothromb Time International Ratio 1.10ratio Activated Partial Thromboplast Time 33.4sec (22.8-33.0) Hepatitis B Surface Antigen Negative (Negative) Hepatitis B Surface Antibody Non reactive (.) Hepatitis B Core Total Antibody Negative (Negative) Hepatitis C Antibody <0.1s/co ratio (0.0-0.9) Test 09/02/16 16:07 09/03/16 02:40 09/04/16 08:10 Urine Color Yellow (YELLOW) Urine Appearance Clear (CLEAR,HAZY) Urine pH 5.0 (5.0-8.0) Urine Specific [place] 1.020 (1.003-1.035) Urine Protein Tracemg/dL (NEG,TRACE) Urine Glucose (UA) Negativemg/dL (NEGATIVE) Urine Ketones Negativemg/dL (NEGATIVE) Urine Occult Blood Moderate (NEGATIVE) Urine Nitrite Negative (NEGATIVE) Urine Bilirubin Negative (NEGATIVE) Urine Urobilinogen Normalmg/dL (NORMAL) Urine Leukocyte Esterase Trace (NEGATIVE) Urine RBC 3-10/hpf (0-2) Urine WBC 6-10/hpf (0-5) Urine Epithelial Cells Few/hpf (NONE-MOD) Urine Crystals None seen (NONE SEEN) Urine Bacteria Moderate/hpf (NONE-FEW) Urine Hyaline Casts None/lpf (NONE) Urine Granular Casts None seen (NONE SEEN) Urine Waxy Casts None seen (NONE SEEN) Urine Red Blood Cell Casts None seen (NONE SEEN) Urine White Blood Cell Casts None seen (NONE SEEN) Urine Mucus None seen (None Seen) Urine Trichomonas None seen (NONE SEEN) Urine Yeast None (NONE SEEN) Urinalysis Comment None Uric Acid 9.6mg/dL (2.6-7.2) Ammonia 39ug/dL (18-53) Procalcitonin 0.50ng/mL (0.00-0.08) White Blood Count 16.3th/mm3 (3.8-10.1) Red Blood Count 3.07mil/mm3 (4.40-5.80) Hemoglobin 8.6g/dL (13.8-17.2) Hematocrit 29.2% (41.0-50.0) Mean Corpuscular Volume 95.1fL (81-100) Mean Corpuscular Hemoglobin 28.0pg (27.0-35.0) Mean Corpuscular Hemoglobin Concent 29.5% (32.0-37.0) Red Cell Distribution Width 15.4% (12.3-15.4) Platelet Count 390bil/L (150-400) Neutrophils (%) (Auto) 49.7% (40-74) Lymphocytes (%) (Auto) 38.1% (14-46) Monocytes (%) (Auto) 9.7% (4-12) Eosinophils (%) (Auto) 0.4% (0-5) Basophils (%) (Auto) 0.4% (0-3) Sodium Level 131mEq/L (134-144) Potassium Level 7.4mEq/L (3.5-5.2) Chloride Level 91mEq/L (97-108) Carbon Dioxide Level 19mmol/L (18-29) Blood Urea Nitrogen 48mg/dL (8-27) Creatinine 3.29mg/dL (0.76-1.27) Estimat Glomerular Filtration Rate 20mL/min (>59) Glucose Level 153mg/dL (60-99) Calcium Level 8.2mg/dL (8.5-10.1) Magnesium Level 4.1mg/dL (1.6-2.6) Total Bilirubin 0.5mg/dL (0.0-1.2) Aspartate Amino Transf (AST/SGOT) 59U/L (0-50) Alanine Aminotransferase (ALT/SGPT) 33U/L (0-44) Alkaline Phosphatase 84U/L (25-160) Total Creatine Kinase 142U/L (21-232) Creatine Kinase MB 2.5ng/mL (0.0-10.4) Creatine Kinase MB % % (0.0-5.0) Troponin T 4.97ug/L (0.0-0.011) Total Protein 6.1g/dL (6.4-8.4) Albumin 2.5g/dL (3.4-5.0) Hold Barnard Top Tube Received (Received) Microbiology Results Urine culture no growth- final Blood culture no growth 5 days- final MRSA screen negative- final Attending Statement The patient was seen and examined together with Dr. Arana on 09/04/2016 and I agree with the history, exam and plan as outlined in the note above. . copies to: SHERLEY TANNER MD, GILES A DO Sep 05, 2016 18:24 Hector Sarkar MD Sep 11, 2016 07:29
== END 2016-09-04 10:30 | disposition expired | DRG 246 ==
LOC: SED 06:00 → PCC 09:52 → CCU 19:38 → PCC 08-26 18:04 → CCU 08-27 10:40 → PCC 08-27 20:21 → CCU 09-04 08:34
PROVIDERS: ADMIT Internal Medicine; ATTEND Internal Medicine
PROC: 4A033R1 Measurement of Arterial Saturation, Peripheral, Percutaneous Approach (ICD-10-PCS; 2016-08-25)
PROC: 027034Z Dilation of Coronary Artery, One Artery with Drug-eluting Intraluminal Device, Percutaneous Approach (ICD-10-PCS; principal; 2016-08-27)
PROC: 4A023N7 Measurement of Cardiac Sampling and Pressure, Left Heart, Percutaneous Approach (ICD-10-PCS; 2016-08-27)
PROC: B2111ZZ Fluoroscopy of Multiple Coronary Arteries using Low Osmolar Contrast (ICD-10-PCS; 2016-08-27)
PROC: 5A1D60Z (ICD-10-PCS; 2016-09-02)
PROC: 0BH17EZ Insertion of Endotracheal Airway into Trachea, Via Natural or Artificial Opening (ICD-10-PCS; 2016-09-04)
PROC: 5A1935Z Respiratory Ventilation, Less than 24 Consecutive Hours (ICD-10-PCS; 2016-09-04)
DX: I21.4 Non-ST elevation (NSTEMI) myocardial infarction (principal); J96.01 Acute respiratory failure with hypoxia; I50.23 Acute on chronic systolic (congestive) heart failure; E87.2 Acidosis; N17.9 Acute kidney failure, unspecified; E87.1 Hypo-osmolality and hyponatremia; I49.01 Ventricular fibrillation; I25.10 Atherosclerotic heart disease of native coronary artery without angina pectoris; I10 Essential (primary) hypertension; E11.9 Type 2 diabetes mellitus without complications; E78.5 Hyperlipidemia, unspecified; G47.33 Obstructive sleep apnea (adult) (pediatric); E66.9 Obesity, unspecified; F41.9 Anxiety disorder, unspecified; Z87.891 Personal history of nicotine dependence; E87.5 Hyperkalemia; I25.5 Ischemic cardiomyopathy